=== PATIENT | female | born 1955 | race Caucasian/White ===

== ENCOUNTER → 2016-08-27 | Outpatient (CLI) | payer MEDICARE ==
[~2016-08-27] MED LIST: ASPI81TA83 OR; DIOV80TA OR; METOPROLOL PO
[2016-08-27 10:17] LABS: BASO % 0.5 % (0.0-1.0); EOS # 0.2 K/mm3 (0.0-0.50); EOS % 2.2 % (0.0-3.0); LARGE UNSTAINED CELL # 0.2 K/mm3 (0.0-0.4); LARGE UNSTAINED CELL % 1.4 % (0.0-4.0); LYMPH # 2.3 K/mm3 (1.5-4.5); LYMPH % 20.9 % (24.0-44.0); MEAN CORPUSCULAR HEMOGLOBIN 31.4 pg (27.0-33.0); MEAN CORPUSCULAR HGB CONC 34.1 g/dl (32.0-36.5); MEAN CORPUSCULAR VOLUME 92.1 fl (80.0-96.0); MONO # 0.5 K/mm3 (0.0-0.8); MONO % 4.2 % (0.0-5.0); NEUTROPHILS # 7.8 K/mm3 (1.8-7.7); NEUTROPHILS % 70.8 % (36.0-66.0); PLATELET COUNT, AUTOMATED 247 k/mm3 (150-450); RED CELL DISTRIBUTION WIDTH 12.7 % (11.5-14.5)
[2016-08-27 10:35] LABS: ALBUMIN 3.5 GM/DL (3.2-5.2); ALBUMIN/GLOBULIN RATIO 1.06 (1.00-1.93); BILIRUBIN,TOTAL 0.2 MG/DL (0.2-1.0); CALCIUM LEVEL 9.2 MG/DL (8.8-10.2); CREATININE FOR GFR 1.02 MG/DL (0.55-1.02); GLOMERULAR FILTRATION RATE 58.5 (>45); TOTAL PROTEIN 6.8 GM/DL (6.4-8.2)
== END ==
LOC: M LAB 09:51
PROVIDERS: ATTEND Physician Assistant Medical
DX: R10.13 Epigastric pain (principal)

== ENCOUNTER → 2016-09-02 | Outpatient (CLI) | payer MEDICARE ==
[~2016-09-02] MED LIST changes: +GLIM4TAB PO; +JANU50TA4 PO; +LISI10TA2 PO; +PROT1TAB2 PO; +TOUJ1.2I SC
--- NOTE | 2016-09-02 12:36 | REP ---
ABDOMINAL, FLAT AND UPRIGHT PA CHEST, THREE VIEW: HISTORY: Epigastric pain. A small amount of air is present in small and large intestine. There are no air fluid levels or dilated loops of intestine. There is no pneumoperitoneum. The lungs are clear. IMPRESSION: Nonspecific bowel gas pattern. Signed by Akbar Hammer MD 09/02/2016 12:38 P
[2016-09-03 17:40] VITALS: BP 115/82
== END ==
LOC: M RAD 11:33
PROVIDERS: ATTEND Physician Assistant Medical
DX: R10.13 Epigastric pain (principal); R11.2 Nausea with vomiting, unspecified

== ENCOUNTER → 2016-09-03 | Outpatient (CLI) | payer MEDICARE ==
[~2016-09-03] MED LIST changes: +LIDOCAINE 2% INJ 100 MG/5 ML SDV (FOR ANES.) As Ordered ONE; +NS 1,000 ML IV SCH; +PROPOFOL 200 MG/20 ML VIAL As Ordered ONE; +fentaNYL 100 MCG/2 ML INJECTION (J3010) As Ordered ONE
--- NOTE | 2016-09-03 16:37 | ROOR ---
Patient Name: Hailey Bowman Procedure Date: 09/03/2016 4:14 PM Date of : 1955 Age: 61 Room: [facility] Gender: Female Note Status: Finalized Procedure: Upper GI endoscopy Indications: Therapeutic procedure, Dysphagia Providers: Mejia MICHELLE MD Referring MD: ESTHER BRADLEY Requesting Provider: Medicines: Monitored Anesthesia Care Complications: No immediate complications. Procedure: Pre-Anesthesia Assessment: - The heart rate, respiratory rate, oxygen saturations, blood pressure, adequacy of pulmonary ventilation, and response to care were monitored throughout the procedure. The Endoscope was introduced through the mouth, and advanced to the second part of duodenum. The upper GI endoscopy was accomplished without difficulty. Findings: The examined esophagus was normal. No endoscopic abnormality was evident in the esophagus to explain the patient's complaint of dysphagia. It was decided, however, to proceed with dilation of the entire esophagus. The scope was withdrawn. Dilation was performed with a Page dilator with mild resistance at 58 Fr. The entire examined stomach was normal. The examined duodenum was normal. Impression: - Normal esophagus. - No endoscopic esophageal abnormality to explain patient's dysphagia. Esophagus dilated. Dilated with 54 and 58 Page dilators. - Normal stomach. - Normal examined duodenum. - No specimens collected. Recommendation: - Observe patient's clinical course. - I anticipate no further need for intervention. Mejia Michelle MD Mejia MICHELLE MD 09/03/2016 4:36:37 PM This report has been signed electronically. Number of Addenda: 0 Note Initiated On: 09/03/2016 4:14 PM Estimated Blood Loss: Estimated blood loss: none.
[2016-09-03 16:55] VITALS: BP 134/72
== END ==
LOC: EDSTATUS 08:48 → M OPP 13:46
PROVIDERS: ATTEND Internal Medicine Gastroenterology
DX: R13.10 Dysphagia, unspecified (principal); I10 Essential (primary) hypertension; I51.9 Heart disease, unspecified; J44.9 Chronic obstructive pulmonary disease, unspecified; K21.9 Gastro-esophageal reflux disease without esophagitis; E11.9 Type 2 diabetes mellitus without complications; R10.13 Epigastric pain; G47.30 Sleep apnea, unspecified; Z72.0 Tobacco use; Z79.82 Long term (current) use of aspirin; Z79.84 Long term (current) use of oral hypoglycemic drugs; Z79.4 Long term (current) use of insulin; Z79.899 Other long term (current) drug therapy; Z88.8 Allergy status to other drugs, medicaments and biological substances
CPT/HCPCS: 43235; 43450; 99156; 99157; J3010

== ENCOUNTER → 2016-11-13 | Outpatient (CLI) | payer MEDICARE ==
[~2016-11-13] MED LIST changes: -LIDOCAINE 2% INJ 100 MG/5 ML SDV (FOR ANES.) As Ordered ONE; -NS 1,000 ML IV SCH; -PROPOFOL 200 MG/20 ML VIAL As Ordered ONE; -fentaNYL 100 MCG/2 ML INJECTION (J3010) As Ordered ONE
--- NOTE | 2016-11-16 20:38 | SLEEPCENT ---
DATE OF PROCEDURE: 11/13/2016 REFERRING PHYSICIAN: Sharlene Watkins Nocturnal polysomnography was performed due to concern for the obstructive sleep apnea syndrome in this patient with a history of excessive somnolence and nonrestorative sleep. 8 hours and 16 minutes of data were reviewed. There were 417 minutes of sleep identified. Sleep latency was normal at 7 minutes. Rapid eye movement (REM) latency was short at 57 minutes. Sleep architecture showed some fragmentation in brief periods of wake. There were three REM periods appreciated. Overall sleep efficiency was 84.9%. The patient's EKG showed atrial fibrillation with a controlled ventricular response, rate of 60 beats per minute. EEG showed reasonably normal waveforms for awake and sleep. There were 66 respiratory events identified of 10 seconds in duration or greater for an apnea/hypopnea index of 9.5. The events were obstructive, not exclusive to sleep stage nor body posture. Some snoring was also noted and respiratory related arousals occurred 6.2 times per hour. There was significant activity in the limb leads as well with five trains of 30 events. The limb movement arousal index was mildly elevated at 8.5. IMPRESSION: Obstructive sleep apnea syndrome (G47.33). Apnea-hypopnea index 9.5. Mild periodic limb movement disorder. (G47.61). Limb movement arousal index 8.5. RECOMMENDATION: The patient should be encouraged to return to the sleep disorder center for pressure therapy. In the interim, alcohol and sedative avoidance should be practiced and caution exercised during the operation of motor vehicles. Pending response to CPAP if the patient continues to experience sleep symptoms, interventions to reduce the frequency of arousals from limb activity may also helpful.
== END ==
LOC: M SLEEP 19:30
PROVIDERS: ATTEND Nurse Practitioner Adult Health
DX: G47.33 Obstructive sleep apnea (adult) (pediatric) (principal); G47.61 Periodic limb movement disorder

== ENCOUNTER → 2016-12-11 | Outpatient (CLI) | payer MEDICARE | LOC: M SLEEP 19:45 | PROVIDERS: ATTEND Nurse Practitioner Adult Health | DX: G47.33 Obstructive sleep apnea (adult) (pediatric) (principal) ==

== ENCOUNTER → 2017-04-05 | Outpatient (REF) | payer MEDICARE | LOC: M SMT 13:47 | PROVIDERS: ATTEND Nurse Practitioner Women's Health | DX: N39.0 Urinary tract infection, site not specified (principal); Z87.440 Personal history of urinary (tract) infections; F17.200 Nicotine dependence, unspecified, uncomplicated | CPT/HCPCS: 81001; 87086; G0463 ==

== ENCOUNTER → 2017-08-17 | Outpatient (CLI) | payer MEDICARE ==
[2017-08-17 09:45] LABS: ANION GAP 4 MEQ/L (8-16); BLOOD UREA NITROGEN 12 MG/DL (7-18); CALCIUM LEVEL 8.9 MG/DL (8.8-10.2); CARBON DIOXIDE LEVEL 32 MEQ/L (21-32); CHLORIDE LEVEL 104 MEQ/L (98-107); CREATININE FOR GFR 1.05 MG/DL (0.55-1.30); GLOMERULAR FILTRATION RATE 56.3 (>45); GLUCOSE, FASTING 261 MG/DL (70-100); SODIUM LEVEL 140 MEQ/L (136-145)
== END ==
LOC: M LAB 08:54
DX: G56.03 Carpal tunnel syndrome, bilateral upper limbs (principal)
CPT/HCPCS: 80048

== ENCOUNTER → 2017-09-29 | Outpatient (CLI) | payer MEDICARE ==
[2017-09-29 13:15] LABS: ANION GAP 8 MEQ/L (8-16); BLOOD UREA NITROGEN 16 MG/DL (7-18); CALCIUM LEVEL 9.6 MG/DL (8.8-10.2); CARBON DIOXIDE LEVEL 29 MEQ/L (21-32); CHLORIDE LEVEL 103 MEQ/L (98-107); CREATININE FOR GFR 1.01 MG/DL (0.55-1.30); GLOMERULAR FILTRATION RATE 58.9 (>45); GLUCOSE, FASTING 190 MG/DL (70-100); POTASSIUM SERUM 4.1 MEQ/L (3.5-5.1); SODIUM LEVEL 140 MEQ/L (136-145)
== END ==
LOC: M LAB 12:11
DX: G56.01 Carpal tunnel syndrome, right upper limb (principal); Z01.812 Encounter for preprocedural laboratory examination
CPT/HCPCS: 80048

== ENCOUNTER → 2018-03-02 | Outpatient (CLI) | payer MEDICARE | LOC: M RAD 08:09 | DX: E11.51 Type 2 diabetes mellitus with diabetic peripheral angiopathy without gangrene (principal) | CPT/HCPCS: 93925 ==

== ENCOUNTER → 2018-03-30 | Outpatient (CLI) | payer MEDICARE ==
[~2018-03-30] MED LIST changes: -ASPI81TA83 OR; -DIOV80TA OR; -GLIM4TAB PO; +HEPARIN 1,000 UNITS/ML 10ML VIAL (FOR RADIOLOGY& DIALYSIS ONLY) As Ordered; +ISOVUE-300 61% 50ML VIAL (Q9967) As Ordered; -JANU50TA4 PO; +LIDOCAINE 2% MDV 20 ML VIAL As Ordered; -LISI10TA2 PO; -METOPROLOL PO; +MIDAZOLAM INJ 2 MG/2 ML VIAL (J2250) As Ordered; +ONDANSETRON 4MG/2ML VIAL (J2405) As Ordered; -PROT1TAB2 PO; -TOUJ1.2I SC; +fentaNYL 100 MCG/2 ML INJECTION (J3010) As Ordered
== END | disposition home or self-care (01) ==
LOC: M IRPRO 06:29
DX: I70.212 Atherosclerosis of native arteries of extremities with intermittent claudication, left leg (principal); G47.33 Obstructive sleep apnea (adult) (pediatric); J44.9 Chronic obstructive pulmonary disease, unspecified; I25.10 Atherosclerotic heart disease of native coronary artery without angina pectoris; I10 Essential (primary) hypertension; K21.9 Gastro-esophageal reflux disease without esophagitis; E11.9 Type 2 diabetes mellitus without complications; Z79.4 Long term (current) use of insulin; I48.91 Unspecified atrial fibrillation; F17.210 Nicotine dependence, cigarettes, uncomplicated
CPT/HCPCS: 37225

== ENCOUNTER → 2018-05-18 | Outpatient (CLI) | payer MEDICARE ==
[~2018-05-18] MED LIST changes: +PROTAMINE SULF INJ 50 MG/5 ML VIAL (J2720) As Ordered
[2018-05-18 10:22] LABS: ANION GAP 7 MEQ/L (8-16); BLOOD UREA NITROGEN 15 MG/DL (7-18); CALCIUM LEVEL 8.4 MG/DL (8.8-10.2); CARBON DIOXIDE LEVEL 29 MEQ/L (21-32); CHLORIDE LEVEL 104 MEQ/L (98-107); CREATININE FOR GFR 1.03 MG/DL (0.55-1.30); GLOMERULAR FILTRATION RATE 57.6 (>45); GLUCOSE, FASTING 148 MG/DL (70-100); POTASSIUM SERUM 3.4 MEQ/L (3.5-5.1); SODIUM LEVEL 140 MEQ/L (136-145)
== END | disposition home or self-care (01) ==
LOC: M IRPRO 07:35
DX: I70.211 Atherosclerosis of native arteries of extremities with intermittent claudication, right leg (principal)
CPT/HCPCS: 37225

== ENCOUNTER → 2018-06-16 | Outpatient (CLI) | payer MEDICARE | LOC: M RAD 06:00 | DX: I73.9 Peripheral vascular disease, unspecified (principal) | CPT/HCPCS: 93926 ==

== ENCOUNTER → 2018-09-01 | Outpatient (CLI) | payer MEDICARE ==
[~2018-09-01] MED LIST changes: +ASPI81TA83 OR; +DIOV80TA OR; +GLIM4TAB PO; -HEPARIN 1,000 UNITS/ML 10ML VIAL (FOR RADIOLOGY& DIALYSIS ONLY) As Ordered; -ISOVUE-300 61% 50ML VIAL (Q9967) As Ordered; +JANU50TA4 PO; -LIDOCAINE 2% MDV 20 ML VIAL As Ordered; +LISI10TA2 PO; +METOPROLOL PO; -MIDAZOLAM INJ 2 MG/2 ML VIAL (J2250) As Ordered; -ONDANSETRON 4MG/2ML VIAL (J2405) As Ordered; +PROT1TAB2 PO; -PROTAMINE SULF INJ 50 MG/5 ML VIAL (J2720) As Ordered; +TOUJ1.2I SC; -fentaNYL 100 MCG/2 ML INJECTION (J3010) As Ordered
--- NOTE | 2018-09-01 11:34 | REP ---
PELVIC ULTRASOUND: Real-time sonographic evaluation of pelvis performed utilizing transabdominal technique. Bladder measures 3.8 x 2.9 x 5.6 cm. Patient has had prior hysterectomy and bilateral salpingo-oophorectomy in 1996. No definite mass or fluid collection is seen in the pelvis. Patient declined transvaginal ultrasound. IMPRESSION: Grossly negative transabdominal pelvic ultrasound. Patient declined endovaginal ultrasound. Electronically Signed by Harman Saeed MD 09/01/2018 03:59 P
== END ==
LOC: M RAD 08:16
PROVIDERS: ATTEND Surgery
DX: R10.2 Pelvic and perineal pain (principal)

== ENCOUNTER → 2018-10-03 | Outpatient (CLI) | payer MEDICARE ==
--- NOTE | 2018-10-03 10:00 | REP ---
Bilateral lower extremity arterial Doppler ultrasound: History: Intermittent claudication. History of right superficial femoral artery balloon angioplasty. Comparison angiographic images are from May 18, 2018. Comparison right lower extremity ultrasound is from June 16, 2018. Sonographic findings: Ankle brachial indices are measured at 0.59 on the right and 0.62 on the left. Most recent ankle brachial index on the right was measured 1.3. Monophasic flow waveforms are noted in the lower extremity arteries bilaterally at and distal to the proximal superficial femoral artery level. 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 There is evidence of a significant left superficial femoral artery stenosis at mid level with high velocity arterial flow seen. Right lower extremity arterial Doppler velocity chart: Right CF A 205 cm/S Profunda 153 Proximal SFA 145 Mid SFA 104 Distal SFA 69 Popliteal 60 Proximal AT A 32 Tibioperoneal trunk 62 Proximal JEWEL BEARING GRINDER 44 Distal JEWEL BEARING GRINDER 28 Distal AT A 38 Left lower extremity arterial Doppler velocity chart: CF A 165 cm/S Profunda 195 Proximal SFA 116 Mid SFA 428 Distal SFA 83 Popliteal 39 Proximal AT A 18 Tibioperoneal trunk 45 Proximal JEWEL BEARING GRINDER 74 Distal JEWEL BEARING GRINDER 38 Distal AT A 37 Electronically Signed by Denys Lopez MD 10/03/2018 09:52 A
== END ==
LOC: M RAD 06:51
PROVIDERS: ATTEND Surgery Vascular Surgery
DX: I70.213 Atherosclerosis of native arteries of extremities with intermittent claudication, bilateral legs (principal)

== ENCOUNTER → 2018-10-04 | Outpatient (CLI) | payer MEDICARE ==
[2018-10-04 17:35] LABS: BASO # 0.1 10^3/uL (0.0-0.2); BASO % 0.7 % (0.0-1.0); EOS # 0.2 10^3/uL (0.0-0.50); EOS % 1.7 % (0.0-3.0); HEMATOCRIT 43.7 % (36.0-47.0); HEMOGLOBIN 14.5 g/dl (12.0-15.5); LYMPH # 2.7 10^3/uL (1.5-4.5); LYMPH % 23.9 % (24.0-44.0); MEAN CORPUSCULAR HEMOGLOBIN 30.9 pg (27.0-33.0); MEAN CORPUSCULAR HGB CONC 33.2 g/dl (32.0-36.5); MEAN CORPUSCULAR VOLUME 93.2 fl (80.0-96.0); MONO # 0.8 10^3/uL (0.0-0.8); NEUTROPHILS # 7.6 10^3/uL (1.8-7.7); NEUTROPHILS % 66.2 % (36.0-66.0); PLATELET COUNT, AUTOMATED 226 10^3/uL (150-450); RED BLOOD COUNT 4.69 10^6/uL (4.00-5.40); WHITE BLOOD COUNT 11.5 10^3/uL (4.0-10.0)
[2018-10-04 17:45] LABS: CALCIUM LEVEL 9.4 MG/DL (8.8-10.2); CREATININE FOR GFR 1.34 MG/DL (0.55-1.30); GLOMERULAR FILTRATION RATE 42.4 (>45); POTASSIUM SERUM 3.7 MEQ/L (3.5-5.1)
== END ==
LOC: M LAB 15:34
PROVIDERS: ATTEND Surgery Vascular Surgery
DX: R19.00 Intra-abdominal and pelvic swelling, mass and lump, unspecified site (principal)

== ENCOUNTER → 2018-10-09 | Outpatient (CLI) | payer MEDICARE ==
[~2018-10-09] MED LIST changes: +ASPI81TA85 PO; +ATOR80TA59 PO; +CARV12.5 PO; +ELIQ5TAB PO; +FLEC25TA PO; +FURO40TA2 PO; +HEPARIN 1,000 UNITS/ML 10ML VIAL (FOR RADIOLOGY& DIALYSIS ONLY) As Ordered ONE; +ISOVUE-300 61% 50ML VIAL (Q9967) As Ordered ONE; +LIDOCAINE 2% MDV 20 ML VIAL As Ordered ONE; +LISI10TA4 PO; +MIDAZOLAM INJ 2 MG/2 ML VIAL (J2250) As Ordered ONE; +PEPC40TA12 PO; +PROTAMINE SULF INJ 50 MG/5 ML VIAL (J2720) As Ordered ONE; +TRAD5TAB PO; +diphenhydrAMINE INJ 50MG/ML VIAL (J1200) As Ordered ONE; +fentaNYL 100 MCG/2 ML INJECTION (J3010) As Ordered ONE
--- NOTE | 2018-10-18 12:29 | REPIR ---
DATE OF PROCEDURE: 10/09/2018 ATTENDING SURGEON: Dr. Rosa Stein ASSISTANTS: Selina Staples and Laura Alicia. 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 PROCEDURE: Aortogram, iliofemoral angiogram, selective left common femoral artery catheter placement, left superficial femoral artery angioplasty and stent with a 7 x 120 Fany stent postdilated with an 8 x 200 balloon, left popliteal artery angioplasty and stent with a 7 x 120 Fany stent postdilated with an 8 x 200 balloon, left common femoral artery angioplasty with 8 x 200 balloon, Mynx closure of the right common femoral arteriotomy. INDICATION: The patient is a 63-year-old female with bilateral lower extremity claudication who will undergo a left lower extremity angiogram. Risks, benefits, alternative treatment options were discussed with the patient. ANESTHESIA: Local sedation with 1 mg of Versed, 50 mcg of fentanyl and 20 mL of 2% lidocaine. FLUOROSCOPIC TIME: 5.8 minutes. CONTRAST: 12.5 mL. SEDATION TIME: From 8:19 a.m. to 8:53 a.m. for a total of 42 minutes. HEPARIN: 7000 units. PROTAMINE: 50 mg. BENADRYL: 50 mg. COMPLICATIONS: None. DRAINS: None. SPECIMENS: None. DESCRIPTION OF PROCEDURE: The patient was taken to the angiography suite, placed supine on the angiography room table and then prepped and draped in a standard surgical fashion. The right common femoral artery was cannulated with a micropuncture needle, catheter placed in the aorta and aortogram was performed. Catheter pulled down bifurcation level of the iliac arteries and iliofemoral angiogram was performed. Catheter was directed over the bifurcation, placed in the left common femoral artery and angiogram was performed showing diffuse disease in the superficial femoral, popliteal and common femoral arteries. The superficial femoral and popliteal arteries underwent angioplasty and stenting with two 7 x 120 Fany drug-eluting stents and one 7 x 120 bare metal stent and then postdilated with an 8 x 200 balloon. The left common femoral artery was angioplastied with an 8 x 200 balloon. A completion angiogram showed resolution of the stenosis with good flow through the common femoral, superficial femoral and popliteal arteries. Catheters and wires were removed. A Mynx closure was used close the arteriotomy in the right common femoral artery with an additional 10 minutes of adjunctive pressure applied for hemostasis. Dressings were then applied. The patient tolerated the procedure well. All instrument, sponge, and needle counts were correct at the end the case. There were no complications. Dr. Stein was present for and directed the entire case. The patient was transferred to the holding area and subsequently discharged in stable condition.
== END | disposition home or self-care (01) ==
LOC: M IRPRO 06:41
PROVIDERS: ATTEND Surgery Vascular Surgery
DX: I70.213 Atherosclerosis of native arteries of extremities with intermittent claudication, bilateral legs (principal); Z72.0 Tobacco use
CPT/HCPCS: 37226; 75625; 75716; C1725; C1760; C1769; C1874; C1876; C1887; C1894; J1200; J2250; J2720; J3010; Q9967

== ENCOUNTER 2018-11-06 10:16 | Day surgery (SDC) | payer MEDICARE ==
[2018-11-06] VITALS (7 sets, daily range): BP systolic 111–159; BP diastolic 67–82
[~2018-11-06] VITALS: Ht 165.1 cm; Wt 93.5 kg
[~2018-11-06 10:16] MED LIST changes: -CARV12.5 PO; -FLEC25TA PO; -FURO40TA2 PO; -HEPARIN 1,000 UNITS/ML 10ML VIAL (FOR RADIOLOGY& DIALYSIS ONLY) As Ordered ONE; -ISOVUE-300 61% 50ML VIAL (Q9967) As Ordered ONE; -LIDOCAINE 2% MDV 20 ML VIAL As Ordered ONE; -LISI10TA4 PO; +LR 1,000 ML IV ONE; -MIDAZOLAM INJ 2 MG/2 ML VIAL (J2250) As Ordered ONE; -PEPC40TA12 PO; -PROTAMINE SULF INJ 50 MG/5 ML VIAL (J2720) As Ordered ONE; -diphenhydrAMINE INJ 50MG/ML VIAL (J1200) As Ordered ONE; -fentaNYL 100 MCG/2 ML INJECTION (J3010) As Ordered ONE
[2018-11-06] MEDS ORDERED: PEPC40TA12 PO (11:28)
[2018-11-06] MEDS ORDERED: HumaLOG INSULIN (NovoLOG) PER UNIT As Ordered ONE (11:40)
[2018-11-06] MEDS ORDERED: HumaLOG INSULIN (NovoLOG) PER UNIT SC ONE (11:45)
[2018-11-06] MEDS ORDERED: LIDOCAINE 1% SDV INJ 30 ML VIAL As Ordered ONE (11:56)
[2018-11-06] MEDS ORDERED: ISOVUE-300 61% 50ML VIAL (Q9967) As Ordered ONE (11:56)
[2018-11-06] MEDS ORDERED: BACITRACIN PWD 50,000 UNITS VIAL As Ordered ONE (11:57)
[2018-11-06] MEDS ORDERED: AMIODARONE 150MG/3ML INJ (J0282) As Ordered ONE ×2 (11:57→13:30)
[2018-11-06] MEDS ORDERED: PROPOFOL 200 MG/20 ML VIAL As Ordered ONE ×3 (12:06→13:27)
[2018-11-06] MEDS ORDERED: MIDAZOLAM INJ 2 MG/2 ML VIAL (J2250) As Ordered ONE (12:08)
[2018-11-06] MEDS ORDERED: fentaNYL 100 MCG/2 ML INJECTION (J3010) As Ordered ONE (12:08)
[2018-11-06] MEDS ORDERED: METOCLOPRAMIDE INJ 10MG/2ML VIAL (J2765) IV PRN (14:30)
[2018-11-06] MEDS ORDERED: LR 1,000 ML IV SCH (14:30)
[2018-11-06] MEDS ORDERED: fentaNYL 100 MCG/2 ML INJECTION (J3010) IV PRN (14:30)
[2018-11-06] MEDS ORDERED: KETOROLAC TROMETHAMINE 10 MG TAB PO PRN (14:30)
[2018-11-06] MEDS ORDERED: ACETAMINOPHEN TAB 650MG DOSE (2X325MG) PO PRN (14:30)
[2018-11-06] MEDS ORDERED: ONDANSETRON 4MG/2ML VIAL (J2405) IV PRN (14:30)
[2018-11-06] MEDS ORDERED: PERCOCET 5MG/325MG TAB PO PRN (14:30)
[2018-11-06] MEDS ORDERED: GLUCOSE 4 GM CHEW TABLET PO PRN (14:45)
[2018-11-06] MEDS ORDERED: CARVedilol 12.5 MG TAB PO ONE (14:45)
[2018-11-06] MEDS ORDERED: GLUCAGON FOR INJ 1 MG VIAL (J1610) SC PRN (14:45)
[2018-11-06] MEDS ORDERED: LISINOPRIL 10 MG TAB PO ONE (14:45)
[2018-11-06] MEDS ORDERED: DEXTROSE 50% 50 ML SYRINGE IV PRN (14:45)
--- NOTE | 2018-11-06 14:47 | REP ---
Chest one-view HISTORY: Pacemaker insertion Comparison: 09/02/2016 Linear densities are present in the left upper and lower lobe consistent with atelectasis or scar. The right lung is clear. The heart is normal in size. The pulmonary vasculature is normal in appearance. The patient is status post pacemaker insertion. Impression: Left upper and lower lobe atelectasis or scar. Electronically Signed by Akbar Hammer MD 11/06/2018 02:39 P
[2018-11-06] MEDS ORDERED: SLF 3 ML SYR IV PRN (16:30)
[2018-11-06] MEDS: HumaLOG INSULIN (NovoLOG) PER UNIT SC SCH (17:55)
[2018-11-06] MEDS: GLIMEPIRIDE 2 MG TAB PO SCH (18:17)
[2018-11-06] MEDS: FLECAINIDE 50MG TABLET PO SCH (18:17)
[2018-11-06] MEDS: ceFAZolin SOD 1 GM in D5W MINI-BAG PLUS 50 ML IV SCH (20:25)
[2018-11-06] MEDS ORDERED: ATORVASTATIN 20 MG TAB PO SCH (21:00)
[2018-11-06] MEDS ORDERED: HumaLOG INSULIN (NovoLOG) PER UNIT SC SCH (21:00)
[2018-11-06] MEDS: LISINOPRIL 10 MG TAB PO SCH (21:10)
[2018-11-06] MEDS: CARVedilol 12.5 MG TAB PO SCH (21:10)
[2018-11-06] MEDS: SLF 3 ML SYR IV SCH (21:14)
--- NOTE | 2018-11-07 00:37 | ECGEPIP ---
Stationary ECG Study [facility] Test Date: 2018-11-06 Pat Name: MICKI BURGER Department: Room: - Gender: F Corporate Real Estate Manager: : 1955 Requested By: Ba Briseno Order Number: [id number] Reading MD: Mejia Paez Measurements Intervals [place] Rate: 82 P: 262 [place]: 214 QRS: 108 QRSD: 177 T: -75 QT: 437 QTc: 512 Interpretive Statements ELECTRONIC ATRIAL PACEMAKER ELECTRONIC VENTRICULAR PACEMAKER Comparison tracing not on file Electronically Signed On 11-07-2018 0:36:46 EDT by Mejia Paez
[2018-11-07] MEDS: ceFAZolin SOD 1 GM in D5W MINI-BAG PLUS 50 ML IV SCH (04:15)
[2018-11-07 04:30] VITALS: BP 133/96
[2018-11-07] MEDS: SLF 3 ML SYR IV SCH (06:12)
--- NOTE | 2018-11-07 07:02 | RO ---
DATE OF PROCEDURE: 11/06/2018 PROCEDURE: 1. Implantation of permanent dual-chamber pacemaker. 2. Direct current cardioversion. IMPLANTING PATTERN ILLUSTRATOR: Dr. Ba Briseno ANESTHESIOLOGIST: Dr. Uriah Delcid PREOPERATIVE DIAGNOSES: 1. Intermittent high-grade AV block. 2. Persistent atrial fibrillation. 3. Heart failure (diastolic dysfunction). 4. Hypertensive heart disease (benign with heart failure). POSTOPERATIVE DIAGNOSES: 1. High-grade AV block - post dual-chamber pacemaker implant. 2. Successful conversion of atrial fibrillation to sinus mechanism. 3. Heart failure (diastolic dysfunction/chronic). 4. Hypertensive heart disease (benign with heart failure). TYPE OF ANESTHESIA: Monitored local anesthesia. CLINICAL SUMMARY: This 63-year-old single mother of two, retired resident of [place], [place] has been followed by Dr. Trinidad, [facility] in [place] for multiple medical problems including hypertensive heart disease with abnormal EKG (intermittent left bundle branch block) and paroxysmal atrial fibrillation recently persistent, chronic obstructive pulmonary disease, obstructive sleep apnea and peripheral arterial disease status post multiple percutaneous transluminal angioplasties, and gastroesophageal reflux disease post multiple esophageal dilatations. Customarily she is limited by dyspnea and claudication, unable to walk farther than approximately 100 feet prior to stopping. Has been free of any effort related chest pains, had been smoking up to one pack per day only to have stopped very recently. Longstanding awareness of her heart action with documented paroxysmal atrial fibrillation the past several years with prior loop recorder implant. Has had a problem with momentary unsteadiness but has not fallen or lost consciousness. Off negative chronotropic therapy, underwent Holter monitor with Dr. Trinidad October 02, 2018 which showed underlying atrial fibrillation with a ventricular response that varied between 32 and 92 bpm with 3-5 second pauses, and multiple PVCs. She was referred to our practice for possible pacemaker implantation. We discussed with the patient arranging for permanent dual-chamber pacemaker implantation to allow safe administration of antiarrhythmic therapy to preserve her sinus mechanism, especially in light of her heart failure. Obese, barrel-chested, late middle-aged lady lying comfortably with the head of bed elevated 30 degrees. Heart rate 68 beats per minute and irregular, blood pressure 122/76 supine, O2 saturation 96% on room air. Body mass index (BMI) 34. Edentulous with dentures. Trachea midline. Neck veins were difficult to assess because of her body habitus, but did not appear to be increased. Increased anteroposterior chest diameter with reduced chest excursion. Fair air entry with no inspiratory rales. Slight prolongation of expiration but no current audible wheeze. Apical impulse not palpable. Heart sounds very distant. Question of accentuated pulmonary closure sound, audible over the right base. Soft variable systolic ejection murmur over left base, variable because of her atrial fibrillation. Carotid upstroke was normal. Pulse volume was variable because of atrial fibrillation. Markedly reduced peripheral pulses with barely palpable left dorsalis pedis, but absent right pedal pulses. No current dependent edema. LABORATORY DATA: EKG October 27 showed underlying atrial fibrillation with ventricular response averaging 66 bpm, low limb voltages and slow precordial R-wave progression. Left bundle branch block pattern, increased QRS duration from previous available EKG. Portable upright chest x-ray October 11, 2018 showed heart size is not enlarged, but hyperinflated lung muñiz. Normal appearing aorta. No pulmonary venous congestion. No infiltrate. Hemoglobin 14.5, white blood cell count was 11.5. Normal platelet count. Electrolytes were normal. BUN 17, creatinine 1.3, random glucose 196. DESCRIPTION OF PROCEDURE: In the fasting state following informed consent and preoperative Ancef 2 grams IV, the patient was taken to the operating theater. Numerous skin electrodes were applied to facilitate continuous electrocardiographic monitoring. Self-adhesive cardioverting/defibrillating pads were applied in an anteroposterior configuration and connected to a bedside cardioverter defibrillator. The left subclavian region was prepped and draped in the usual fashion. The skin was infiltrated with 1% Xylocaine and the left axillary vein was catheterized using the micropuncture technique. A 5 cm linear incision was made several centimeters below and parallel to the left clavicle. Dissection was carried down to the level of the pectoralis fascia and a pocket was fashioned below the level of the incision line. Two bipolar screw-in active fixation steroid eluting pacing leads were then positioned to the right ventricle outflow tract and high right atrial appendage under fluoroscopic control. The right ventricular lead ([employer] model number [id number], serial number [id number]) measurements were: Stimulation threshold 0.6 V/0.4 ms/impedance 877 ohms. The capital R wave amplitude measured 8.1 mV. Once the ventricular lead was in position, the patient was given amiodarone 150 mg IV infusion over 10 minutes and repeated half an hour later. The patient was then given additional IV sedation by anesthesia and once her awareness was blunted a single biphasic direct current cardioversion was performed. In light of her body habitus, a 200 joule shock was administered. This was successful in restoring her sinus mechanism, but she had frequent PACs so we elected to overdrive pacer temporarily at 90 beats per minute in the operating room with good effect. The atrial lead ([employer] model number [id number], serial number [id number]) measurements were: Stimulation threshold 1.0 V/0.4 ms/impedance 427 ohms. The capital P wave amplitude measured 2.6 mV. These pacing leads were then secured in position with sleeves sutured at their insertion site. They were then connected to a dual chamber pulse generator ([employer], model number [id number], serial number [id number]) MRI compatible. Consistent AV sequentially paced rhythm was documented. The generator was then placed in the pocket and secured in position with a suture through the right upper hand corner of the epoxy header. The subcutaneous tissues were approximated using a running chromic suture and the skin was closed using robyn. A dry dressing was applied and the patient was returned to recovery room in good condition. Estimated blood loss 10 mL. No apparent complications. Especially with our wish to start her on antiarrhythmic therapy (flecainide 50 mg b.i.d. in light of her history of hypertensive heart disease - diastolic dysfunction) we admitted her to a telemetry unit for observation at least overnight. Her postoperative portable upright chest x-ray showed good lead position with no pneumothorax. Her EKG confirmed consistent AV sequentially paced rhythm. Paced QRS complexes had a normal axis with left bundle branch block configuration in keeping with RV outflow tract stimulation. MTDD
[2018-11-07 08:00] VITALS: BP 124/80
[2018-11-07] MEDS: GLIMEPIRIDE 2 MG TAB PO SCH (08:09)
[2018-11-07] MEDS: HumaLOG INSULIN (NovoLOG) PER UNIT SC SCH (08:09)
[2018-11-07] MEDS ORDERED: ESCITALOPRAM OXALATE 10 MG TAB (LEXAPRO) PO SCH (09:00)
[2018-11-07] MEDS ORDERED: PANTOPRAZOLE 40MG TAB (PROTONIX) PO SCH (09:00)
--- NOTE | 2018-11-07 09:15 | REP ---
Chest x-ray: Two views. History: Status post pacemaker implant. Comparison chest x-ray: November 06, 2018. Findings: A dual lead pacemaker is again seen in the right heart via the left side. There are skin robyn adjacent to the power plant. There is no evidence of pneumothorax or hydrothorax. Mild discoid atelectasis is seen in the bases. No pleural effusion is seen. Pulmonary vasculature is not increased. Impression: Pacemaker in place. Mild bibasilar plate-like atelectasis. No complication seen. Electronically Signed by Denys Lopez MD 11/07/2018 08:25 P
[2018-11-07] MEDS ORDERED: CARV12.5 PO ×2 (09:23→09:30)
[2018-11-07] MEDS ORDERED: LISI10TA4 PO ×2 (09:23→09:30)
[2018-11-07] MEDS ORDERED: FLEC25TA PO ×2 (09:23→09:30)
--- NOTE | 2018-11-07 10:05 | IPN ---
CARDIOLOGY PROGRESS NOTE DATE: 11/07/2018 SUBJECTIVE: Following her pacemaker implant yesterday she has minor incisional tenderness, but has been up ambulating without problems. In particular denies any other chest discomfort, shortness of breath, palpitations or dizziness. Appears to be tolerating her adjusted antihypertensive/antiarrhythmic therapy without problem. OBJECTIVE: Pleasant obese late middle-aged woman ambulating in her room without problem. Heart rate 90 beats per minute and regular. Blood pressure 124/80. Respiratory rate 18. O2 saturation 96% on room air. Afebrile. Weight 206 pounds. Was able to lie relatively flat without difficulty. No pallor or cyanosis. Normal oral moisture. Neck veins did not appear to be elevated. Slightly increased anteroposterior chest diameter with normal respiratory rate. Slightly reduced chest expansion. Her pacemaker incision appears to be healing well without erythema, swelling or discharge. No current dependent edema. CARDIOVASCULAR DISEASE SPECIALIST: This has been showing fairly consistent atrially paced and ventricular paced rhythm. She has anti fibrillation pacing mode of her pacemaker activated and this appears to be working well. PA and left lateral chest x-ray: Reviewed independently shows borderline cardiomegaly with normal greater vessels. No pulmonary venous congestion. Stable pacing leads with no pneumothorax. No pulmonary venous congestion. Lateral projection shows increased anteroposterior chest diameter with flattened diaphragms consistent with her COPD. EKG: Her tracing today shows appropriate pacer function with AV sequential pacing at 96 bpm. Her paced ventricular complexes have a rightward axis and LBBB configuration in keeping with RV outflow tract stimulation. This appearance is not changed from yesterday. BLOOD WORK: Fingerstick blood sugar shows significantly elevated values despite her dietary measures and sliding scale insulin. I am confident this will improve resuming her customary insulins at home. These preparations were not available to her here. IMPRESSION/PLAN: 1. Paroxysmal atrial fibrillation: On her current combination of carvedilol and low-dose flecainide with pacemaker anti fibrillation mode activated, she has been free of recurrent atrial tachyarrhythmia. We will plan on continuing this same regimen. Her oral anticoagulation will be resumed tomorrow. 2. AV block/dual-chamber pacemaker in situ: Has minimal incisional discomfort but her incision appears to be healing well. Complete pacemaker interrogation was performed today showing excellent intracardiac electrograms and pacing thresholds with ample battery voltage. We did make subtle adjustments to her auto pacing features in order to prolong battery life. She will be given a followup appointment in 1 week for staple removal. We have instructed her to perform only light activities of daily living, avoid getting her incision wet until she has her robyn removed in my office. She has also been encouraged to contact us promptly for any abnormal erythema, swelling or discharge. 3. Heart failure (diastolic dysfunction-chronic): At this point has no symptoms or signs of congestion. Chest x-ray shows no pulmonary venous hypertension, infiltrate or pleural effusion. At this point we have requested that she continue to follow a modest salt and fluid intake restriction. She will be continued on carvedilol and lisinopril. Her Lasix dosing has been changed to 40 mg daily only should she gain more than 2 pounds above her discharge weight. Her hydrochlorothiazide has been discontinued. 4. Hypertensive heart disease (benign with heart failure): Current blood pressure is well-controlled on her present combination carvedilol and lisinopril. Compensated as mentioned above. DISCHARGE RECOMMENDATIONS AND MEDICATIONS: Dietary measures and activity as mentioned above. Has a followup appointment in my office November 13, 2018 at 8:00 a.m. Her medications will now include: - carvedilol 12.5 mg b.i.d. - lisinopril 10 mg b.i.d. - furosemide 40 mg tablets 1 tablet daily for weight gain of 2 pounds or more on her scale (she will be weighing herself postvoiding each morning) - Eliquis 5 mg b.i.d. starting tomorrow - atorvastatin 80 mg daily - Protonix 40 mg daily - Pepcid 40 mg daily - flecainide 50 mg b.i.d. - glimepiride 4 mg tablets p.o. b.i.d. - insulin glargine 65 units subcu daily - linagliptin 5 mg p.o. daily Her aspirin has been discontinued. She has been encouraged contact us should she have any questions or difficulties.
[2018-11-07] MEDS: FLECAINIDE 50MG TABLET PO SCH (10:10)
[2018-11-07] MEDS: CARVedilol 12.5 MG TAB PO SCH (10:10)
[2018-11-07 10:11] VITALS: BP 124/80
[2018-11-07] MEDS: LISINOPRIL 10 MG TAB PO SCH (10:11)
[2018-11-07] MEDS ORDERED: FURO40TA2 PO (12:32)
--- NOTE | 2018-11-07 21:28 | ECGEPIP ---
Stationary ECG Study [facility] Test Date: 2018-11-07 Pat Name: MICKI BURGER Department: Room: [place] [id number] Gender: F Newspaper Delivery Driver: GALO : 1955 Requested By: Ba Briseno Order Number: [id number] Reading MD: Mejia Paez Measurements Intervals [place] Rate: 96 P: 126 [place]: 198 QRS: 110 QRSD: 170 T: -72 QT: 424 QTc: 536 Interpretive Statements ELECTRONIC ATRIAL PACEMAKER ELECTRONIC VENTRICULAR PACEMAKER ABNORMAL RHYTHM ECG Electronically Signed On 11-07-2018 21:28:00 EDT by Mejia Paez
== END 2018-11-07 10:51 | disposition home or self-care (01) ==
LOC: M SDC 10:16 → M PCU 15:28 → M SDC 11-07 10:51
PROVIDERS: ATTEND Internal Medicine Cardiovascular Disease
DX: I44.1 Atrioventricular block, second degree (principal); I48.1 Persistent atrial fibrillation; I50.32 Chronic diastolic (congestive) heart failure; I11.0 Hypertensive heart disease with heart failure; J44.9 Chronic obstructive pulmonary disease, unspecified; E11.9 Type 2 diabetes mellitus without complications; G47.33 Obstructive sleep apnea (adult) (pediatric); K21.9 Gastro-esophageal reflux disease without esophagitis; Z79.4 Long term (current) use of insulin; Z79.899 Other long term (current) drug therapy
CPT/HCPCS: 33208; 71045; 71046; 76000; 92960; 93005; C1785; C1898; J0282; J0690; J2250; J3010

== ENCOUNTER → 2018-11-15 | Outpatient (CLI) | payer MEDICARE ==
[~2018-11-15] MED LIST changes: +CARV12.5 PO; +FLEC25TA PO; +FURO40TA2 PO; +LISI10TA4 PO; -LR 1,000 ML IV ONE; +PEPC40TA12 PO
--- NOTE | 2018-11-15 15:10 | REP ---
BILATERAL LOWER EXTREMITY DUPLEX DOPPLER ARTERIAL ULTRASOUND: Real-time ultrasound evaluation and duplex Doppler interrogation of the bilateral lower extremity arterial systems is performed. MOISES on the right is 0.65 and left 0.55. Severe atherosclerosis and plaquing is seen bilaterally predominantly in the region of the superficial femoral arteries. Triphasic waveforms are seen in the common femoral arteries and profunda arteries bilaterally with mild phasic arteries distal to that bilaterally. There is occlusion of the proximal right superficial femoral artery with reconstitution in the mid aspect. 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 There is occlusion of the left superficial femoral artery proximal to distal where there is an intraluminal stent. There is reconstitution of the distal SFA via collateral vessels. Right Peak Left Peak Systolic Velocity Systolic velocity Common femoral artery 138.0 cm/s 56.8 cm/s Profunda 103.0 cm/s 9.7 cm/s Proximal SFA 36.9/occluded occluded Mid SFA reversal of flow 44.8 occluded Distal SFA 32.1 cm/s reversal of flow 24.8 Popliteal 19.1 cm/s 9.5 cm/s Proximal DARRYL 10.7 cm/s 11.5 cm/s Tibial peroneal trunk 20.2 cm/s 12.0 cm/s Proximal PUBLIC POLICY MANAGER 22.7 cm/s 26.1 cm/s Distal PUBLIC POLICY MANAGER 13.4 cm/s 8.9 cm/s Distal DARRYL 11.4 cm/s 4.2 cm/s IMPRESSION: Severe atherosclerotic plaquing bilaterally. 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 There is reconstitution of the mid SFA via collateral vessels. There is a stent of the entire left superficial femoral artery, which is occluded. There is reconstitution of the distal end of the left SFA via collateral vessels. Electronically Signed by Harman Saeed MD 11/17/2018 11:55 A
== END ==
LOC: M RAD 10:40
PROVIDERS: ATTEND Surgery Vascular Surgery
DX: I70.211 Atherosclerosis of native arteries of extremities with intermittent claudication, right leg (principal); I70.292 Other atherosclerosis of native arteries of extremities, left leg

== ENCOUNTER → 2018-11-27 | Outpatient (CLI) | payer MEDICARE ==
[2018-11-27 07:17] LABS: HEMOGLOBIN 12.4 g/dl (12.0-15.5); MEAN CORPUSCULAR HEMOGLOBIN 32.5 pg (27.0-33.0); MEAN CORPUSCULAR HGB CONC 34.4 g/dl (32.0-36.5); MEAN CORPUSCULAR VOLUME 94.2 fl (80.0-96.0); PLATELET COUNT, AUTOMATED 198 10^3/uL (150-450); RED BLOOD COUNT 3.82 10^6/uL (4.00-5.40); WHITE BLOOD COUNT 8.9 10^3/uL (4.0-10.0)
[2018-11-27 07:48] LABS: ALBUMIN 3.3 GM/DL (3.2-5.2); BILIRUBIN,TOTAL 0.6 MG/DL (0.2-1.0); CALCIUM LEVEL 8.6 MG/DL (8.8-10.2); CHOLESTEROL RISK RATIO 4.5 (<5); CREATININE FOR GFR 1.14 MG/DL (0.55-1.30); GLOMERULAR FILTRATION RATE 51.1 (>45); POTASSIUM SERUM 3.7 MEQ/L (3.5-5.1); TOTAL PROTEIN 6.5 GM/DL (6.4-8.2)
== END ==
LOC: M LAB 06:01
PROVIDERS: ATTEND Internal Medicine Cardiovascular Disease
DX: I73.9 Peripheral vascular disease, unspecified (principal); I11.0 Hypertensive heart disease with heart failure; I48.0 Paroxysmal atrial fibrillation

== ENCOUNTER → 2018-11-29 | Outpatient (CLI) | payer MEDICARE ==
[~2018-11-29] MED LIST changes: +BUPIVACAINE HCL 0.5% 10 ML VIAL As Ordered ONE; +DAYT1CAP9 PO; +FLEC50HA PO; +HEPARIN 1,000 UNITS/ML 10ML VIAL (FOR RADIOLOGY& DIALYSIS ONLY) As Ordered ONE; +ISOVUE-300 61% 100ML VIAL (Q9967) As Ordered ONE; +LIDOCAINE 2% MDV 20 ML VIAL As Ordered ONE; +MIDAZOLAM INJ 2 MG/2 ML VIAL (J2250) As Ordered ONE; +PROTAMINE SULF INJ 50 MG/5 ML VIAL (J2720) As Ordered ONE; +diphenhydrAMINE INJ 50MG/ML VIAL (J1200) As Ordered ONE; +fentaNYL 100 MCG/2 ML INJECTION (J3010) As Ordered ONE
--- NOTE | 2018-12-22 10:16 | REPIR ---
DATE OF PROCEDURE: 11/29/2018 ATTENDING SURGEON: Dr. Rosa Stein RETAIL PLANNER: Selina Staples and Laura Alicia PREOPERATIVE DIAGNOSES: Bilateral claudication, bilateral superficial femoral arterial occlusive disease. POSTOPERATIVE DIAGNOSES: Bilateral claudication, bilateral superficial femoral arterial occlusive disease. PROCEDURE: Left femoral artery cannulation, selective right common femoral artery catheter placement with angiogram, selective right superficial femoral artery catheter placement with angiogram, selective right popliteal artery catheter placement with angiogram, right popliteal artery angioplasty and stent with a 7 x 122 Fany drug-eluting stent postdilated with 6 x 200 balloon, right superficial femoral artery angioplasty and stent with a 7 x 122 Fany drug-eluting stent postdilated with a 6 x 200 balloon, right superficial femoral artery angioplasty and stent with a 7 x 121 Fany stent postdilated with a 6 x 200 balloon, Mynx closure of the left common femoral arteriotomy. INDICATION: The patient is a 63-year-old female with previous angioplasty of her occlusive disease in a right lower extremity and who now has recurrence of her claudication. The patient will undergo an angiogram with possible angioplasty, stent and/or atherectomy. ANESTHESIA: Local with sedation with 2 mg Versed, 100 micrograms fentanyl and 10 mL of local. FLUORO TIME: 7.9 minutes. CONTRAST: 6 mL of Isovue-300. HEPARIN: 7000 units, protamine 50 mg. SEDATION TIME: From 07:50 a.m. to 09:14 a.m. COMPLICATIONS: None. DRAINS: None. IMPLANTS: Stents and Mynx. PROCEDURE: The patient was taken to the angiography suite, placed supine on the angiography room table and then prepped and draped in a standard surgical fashion. The left common femoral artery was cannulated. The catheter was advanced up to the bifurcation and a right lower extremity angiogram was performed showing severe stenosis in the superficial femoral and popliteal arteries. These were then angioplasty and stented using three 7 x 120 Fany drug-eluting stents, one in the popliteal and two in the superficial femoral arteries and these were postdilated with 6 x 200 balloons. A completion angiogram showed resolution of the stenosis with excellent flow through the common femoral into the superficial femoral and popliteal arteries with tibial runoff into the foot. Catheters and wires were removed. A Mynx closure was used to close the arteriotomy in the left common femoral artery with an additional 10 minutes of adjunctive pressure applied for hemostasis. Dressings were then applied. The patient tolerated the procedure well. All instrument, sponge, needle counts were correct at the end of case. There were no complications. Dr. Stein was present for and directed the entire case.
== END | disposition home or self-care (01) ==
LOC: M IRPRO 06:48
PROVIDERS: ATTEND Surgery Vascular Surgery
DX: I70.201 Unspecified atherosclerosis of native arteries of extremities, right leg (principal)
CPT/HCPCS: 37226; 75710; C1725; C1760; C1769; C1874; C1887; C1894; J2250; J2720; J3010; Q9967

== ENCOUNTER 2018-12-28 06:58 | Inpatient (IN) | payer MEDICARE ==
[2018-12-28] VITALS (16 sets, daily range): BP systolic 115–157; BP diastolic 59–79
[~2018-12-28] VITALS: Ht 167.6 cm; Wt 89.9 kg
[~2018-12-28 06:58] MED LIST changes: -DAYT1CAP9 PO; -FLEC50HA PO; -ISOVUE-300 61% 100ML VIAL (Q9967) As Ordered ONE; +ISOVUE-300 61% 50ML VIAL (Q9967) As Ordered ONE; -PROTAMINE SULF INJ 50 MG/5 ML VIAL (J2720) As Ordered ONE
[2018-12-28] MEDS ORDERED: fentaNYL 100 MCG/2 ML INJECTION (J3010) As Ordered ONE (08:34)
[2018-12-28] MEDS ORDERED: MIDAZOLAM INJ 2 MG/2 ML VIAL (J2250) As Ordered ONE (08:34)
[2018-12-28] MEDS ORDERED: ALTEPLASE 2 MG/2 ML VIAL (J2997 PER 1MG) As Ordered ONE ×2 (08:47→09:03)
[2018-12-28] MEDS ORDERED: HEPARIN 25,000 UNITS/250 ML D5W BAG (100 UNITS/ML) As Ordered ONE (09:22)
[2018-12-28] MEDS ORDERED: MOM 30ML SUSPENSION UDC PO PRN (09:30)
[2018-12-28] MEDS ORDERED: ACETAMINOPHEN TAB 650MG DOSE (2X325MG) PO PRN (09:30)
[2018-12-28] MEDS ORDERED: MORPHINE 4 MG/ML 1ML VIAL/SYRINGE (J2270) IV PRN ×2 (09:30)
[2018-12-28] MEDS ORDERED: ONDANSETRON 4MG/2ML VIAL (J2405) IV PRN (09:30)
[2018-12-28] MEDS ORDERED: BISACODYL 10 MG SUPP PR PRN (09:30)
[2018-12-28] MEDS ORDERED: METOCLOPRAMIDE INJ 10MG/2ML VIAL (J2765) IV PRN (09:30)
--- NOTE | 2018-12-28 09:57 | HPEPDOC ---
[facility] Medical History & Physical Date of Admission Dec 28, 2018 Date of Service: Dec 28, 2018 History and Physical Vascular Surgery. Dr Stein Hospitalist. Dr Sally Biggs PCP: Amy SANTANA CC: LLE pain HPI: [id number] with a past medical history significant for PAD and reports LLE pain who was scheduled for LLE angiogram today as per Dr Stein. The pt is s/p arthrectomy/thrombectomy of previously placed SFA stent. The pt was noted to have embolus in tibial vessels with some discoloration of the dorsal aspect of the Left foot and toes. Plan is to arrange admission to ICU for thrombolysis LLE as per Dr Stein. Currently Pt is resting post procedure in IR and is comfortable currently. Denies any fevers, chills, weakness, fatigue, PRICE, CP, SOB, cough, palpitations, abdominal pain, N/V/D or changes in bowel or bladder habits. PMHx: PAD, H/O BLE angioplasty/stents. COPD PRETTY/non compliance with CPAP PAF on Eliquis/Flecainide as per SHELBIE. DM GERD HTN/HHD/diastolic CHF CAD Obesity BMI 32.0 PSHX: C section x 2 breast reduction hysterectomy L knee Rt shoulder rotator cuff hernia repair EGD colonoscopy AVB/Pacemaker SOCHX: Tobacco use: 1/2 ppd ETOH: occasional Illicit Drugs: Denies FAMHX: CAD, [place], CHF, Lung Ca ROS: As noted in HPI, otherwise 11pt ROS of systems reviewed and unremarkable. PE: GEN: 63yoF, appears stated age. Well-nourished, well developed. No acute distress. Alert and oriented x 3. HEENT: Normocephalic, atraumatic. Sclera are nonicteric. Conjunctiva without injection. No facial asymmetry. Moist mucous membranes. CHEST: Regular rate and rhythm, +S1, +S2 LUNGS: Clear to auscultation bilaterally. No wheezes, rales, or rhonchi. ABD: Round, soft, non-tender, non-distended. +Bowel sounds throughout. No rebound or guarding. EXT: No lower extremity edema appreciated. SKIN: [place], dry, warm. Capillary refill <2 sec in Rt foot, PT/DP pulse Rt foot biphasic. There is discoloration noted of the dorsal aspect and toes of the Lt foot with pulses monophasic DP/PT with Doppler. Sluggish cap refill of toes. Catheter Rt groin with dressing intact. NEURO: Alert and oriented x 3. No focal deficits appreciated. Admission labs pending. BMP/CBC/PT/PTT/fibrinogen. A&P: PAD/H/O LLE stent SFA, Pt with LLE pain who was scheduled for LLE angiogram with Dr Stein this AM. The pt is S/P arthrectomy/thrombectomy LLE SFA stent, embolus noted in tibial vessels. Pt to be admitted to ICU as per Dr Stein. Heparin gtt/Alteplase as per protocol per Dr Stein. Q6 H/H, PTT, fibrinogen. pain control. bowel care PPI IV Monitor. MED REC PENDING AT THIS TIME. Hospitalist consulted to assist with medical mgmt. Laboratory Data Labs 24H Admision labs pending. CBC/BMP Item Value Date Time White Blood Count 8.9 10^3/uL 11/27/18 0610 Red Blood Count 3.82 10^6/uL L 11/27/18 0610 Hemoglobin 12.4 g/dl 11/27/18 0610 Hematocrit 36.0 % 11/27/18 0610 Mean Corpuscular Volume 94.2 fl 11/27/18 0610 Mean Corpuscular Hemoglobin 32.5 pg 11/27/18 0610 Mean Corpuscular Hemoglobin Concent 34.4 g/dl 11/27/18 0610 Red Cell Distribution Width 14.1 % 11/27/18 0610 Platelet Count 198 10^3/uL 11/27/18 0610 Sodium Level 142 MEQ/L 11/27/18 0610 Potassium Level 3.7 MEQ/L 11/27/18 0610 Chloride Level 103 MEQ/L 11/27/18 0610 Carbon Dioxide Level 34 MEQ/L H 11/27/18 0610 Anion Gap 5 MEQ/L L 11/27/18 0610 Blood Urea Nitrogen 17 MG/DL 11/27/18 0610 Creatinine 1.14 MG/DL 11/27/18 0610 Glomerular Filtration Rate 51.1 11/27/18 0610 Fasting Glucose 190 MG/DL H 11/27/18 0610 Calcium Level 8.6 MG/DL L 11/27/18 0610 Total Protein 6.5 GM/DL 11/27/18 0610 Albumin 3.3 GM/DL 11/27/18 0610 Albumin/Globulin Ratio 1.03 11/27/18 06 Triglycerides Level 189 MG/DL H 11/27/18 06 Total Cholesterol 153 MG/DL 11/27/18 06 LDL Cholesterol 81 MG/DL 11/27/18 06 Non-HDL Cholesterol (LDL + VLDL) 119 MG/DL 11/27/18 06 Total HDL Cholesterol 34 MG/DL L 11/27/18 06 Cholesterol/HDL Ratio 4.500 11/27/18 06 Bleeding Time Template Minutes 4 MINUTES 11/11/06 1210 Home Medications Scheduled Apixaban (Eliquis) 5 Mg Tablet, 5 MG PO BID Atorvastatin Calcium (Atorvastatin Calcium) 80 Mg Tablet, 80 MG PO DAILY Carvedilol (Carvedilol) 12.5 Mg Tablet, 12.5 MG PO BID Famotidine (Pepcid) 40 Mg Tablet, 40 MG PO DAILY Flecainide Acetate (Flecainide Acetate) 50 Mg Tablet, 50 MG PO BID Furosemide (Furosemide) 40 Mg Tablet, 40 MG PO DAILY Only for weight gain of more 2 lbs Glimepiride (Glimepiride) 4 Mg Tab, 4 MG PO BID Insulin Glargine,Hum.rec.anlog (Toujeo Solostar) 300 Unit/Ml Inj, 65 UNIT SC DAILY Linagliptin (Tradjenta) 5 Mg Tablet, 5 MG PO DAILY Lisinopril (Lisinopril) 10 Mg Tablet, 10 MG PO BID Pantoprazole Sodium (Protonix) 40 Mg Tab, 40 MG PO DAILY Allergies Coded Allergies: dapagliflozin (Unverified Allergy, Unknown, 11/01/18) latex (Unverified Allergy, Unknown, risk, 11/01/18) pravastatin (Unverified Allergy, Unknown, unknown, 11/01/18) diphenhydramine (Unverified Adverse Reaction, Unknown, agitation, 11/01/18) metformin (Unverified Adverse Reaction, Unknown, diarrhea, 11/01/18) prednisone (Unverified Adverse Reaction, Unknown, elevated BS, 11/01/18) A-FIB/CHADSVASC A-FIB History Current/History of A-Fib/PAF?: Yes Current PO Anticoag Therapy: Yes Dasha Cristobal Dec 28, 2018 09:57
--- NOTE | 2018-12-28 11:08 | REPIR ---
DATE OF PROCEDURE: 12/28/2018 ATTENDING SURGEON: Dr. Syeda Stein SUPERVISOR EDGING: Margarita Ochoa PREOPERATIVE DIAGNOSES: Left lower extremity claudication. Chronic total occlusion of superficial, femoral and popliteal arteries in the left lower extremity status post angioplasty and stenting. Coronary artery disease. Diabetes mellitus. POSTOPERATIVE DIAGNOSES: Left lower extremity claudication. Chronic total occlusion of superficial, femoral and popliteal arteries in the left lower extremity status post angioplasty and stenting. Coronary artery disease. Diabetes mellitus. PROCEDURE: Right common femoral arterial cannulation. Selective left common femoral artery catheter placement with left lower extremity angiogram. Selective left superficial femoral artery catheter placement with left lower extremity angiogram. Selective left popliteal artery catheter placement with left lower extremity angiogram. Left common femoral arterial atherectomy with JETSTREAM 2.4/3.4 catheter. Left superficial femoral arterial atherectomy with JETSTREAM 2.4/3.4 catheter. Left popliteal artery atherectomy with JETSTREAM 2.4/3.4 catheter. Left superficial femoral arterial thrombectomy with JETSTREAM 2.4/3.4 catheter. Left popliteal artery thrombectomy with JETSTREAM 2.4/3.4 catheter. Left common femoral artery angioplasty with 6 x 200 mm balloon. Left superficial femoral artery angioplasty with 6 x 200 mm balloon. Left popliteal artery angioplasty with 6 x 200 mm balloon. Instillation of thrombolytic with 10 mg bolus of TPA given through the sheath into the left lower extremity. Placement of a 50 cm infusion catheter with initiation of left lower extremity arterial thrombolysis. INDICATION: Patient is a 63-year-old female with bilateral lower extremity atherosclerotic arterial occlusive disease in her superficial, femoral and popliteal arteries who has previously undergone angioplasty and stenting of the left superficial, femoral and popliteal arteries, which have occluded. The patient will undergo repeat left lower extremity angiography with possible angioplasty, stent, atherectomy or thrombectomy. Risks, benefits and alternative treatment options were discussed with the patient. ANESTHESIA: Was local with sedation with 3 mg Versed, 115 mcg of fentanyl and 10 mL of 2% lidocaine mixed with 0.5% Marcaine. SEDATION TIME: Was from 8:06 a.m. to 9:52 a.m. for a total of 106 minutes. Heparin 7000 units, tPA 10 mg, and Benadryl 50 mg. COMPLICATIONS: None. DRAINS: None. SPECIMENS: None. IMPLANTS: None. PROCEDURE: The patient was taken to the angiography suite, placed supine on the angiography room table and then prepped and draped in a standard surgical fashion. The right common femoral artery was cannulated and a catheter placed up and over the bifurcation under fluoroscopic guidance and placed in the left common femoral artery. The left common femoral artery selective angiography was performed showing the profunda femoris to be patent, but there was occlusion of the superficial femoral artery shortly after its takeoff with the previously placed stents occluded down to and including the popliteal artery stents. There was occlusion of the distal popliteal artery where there was reconstitution just above the anterior tibial artery of the popliteal artery via collaterals. The occluded SFA stents and popliteal stents and artery were recanalized using an angled Glidewire and a Montgomery catheter. The catheter was placed in the popliteal artery in the below knee region and a selective popliteal artery angiogram was performed confirming intraluminal positioning. An atherectomy was then performed of the left common femoral, superficial femoral, and popliteal artery using the JETSTREAM 2.4/3.4 catheter. A thrombectomy of the occluded stents and distal popliteal artery was performed using the JETSTREAM. The common femoral, superficial femoral and popliteal artery were then angioplastied with a 6 x 200 balloon. A completion angiogram showed flow through the common femoral, superficial femoral, and popliteal arteries into the tibial vessels with some thrombus remaining along the length of the superficial femoral and popliteal artery stents as well as thrombus in the distal popliteal artery and anterior tibial artery. A 50 cm infusion catheter was then placed through the common femoral, superficial femoral and popliteal artery. The patient was given a 10 mg bolus of tPA followed by initiation of left lower extremity arterial thrombolysis with continuous infusion of 1 mg an hour. Dressings were applied. The patient tolerated the procedure well. All instrument, sponge and needle counts were correct at the end of the case. There were no complications. Dr. Stein was present for and directed the entire case. The patient was transferred to the ICU for left lower extremity arterial thrombolysis.
[2018-12-28 11:24] LABS: BASO % 0.4 % (0.0-1.0); EOS # 0.2 10^3/uL (0.0-0.50); EOS % 2.1 % (0.0-3.0); HEMATOCRIT 35.5 % (36.0-47.0); LYMPH # 1.7 10^3/uL (1.5-4.5); LYMPH % 21.9 % (24.0-44.0); MEAN CORPUSCULAR HEMOGLOBIN 31.4 pg (27.0-33.0); MEAN CORPUSCULAR HGB CONC 33.8 g/dl (32.0-36.5); MEAN CORPUSCULAR VOLUME 92.9 fl (80.0-96.0); MONO # 0.5 10^3/uL (0.0-0.8); MONO % 6.5 % (0.0-5.0); NEUTROPHILS # 5.3 10^3/uL (1.8-7.7); NEUTROPHILS % 68.6 % (36.0-66.0); PLATELET COUNT, AUTOMATED 149 10^3/uL (150-450); RED BLOOD COUNT 3.82 10^6/uL (4.00-5.40); WHITE BLOOD COUNT 7.7 10^3/uL (4.0-10.0)
[2018-12-28 11:36] LABS: INR 1.49; PROTHROMBIN TIME 18.3 SECONDS (12.1-14.4)
[2018-12-28 11:38] LABS: PARTIAL THROMBOPLASTIN TIME 72.6 SECONDS (25.4-37.6)
[2018-12-28] MEDS ORDERED: DAYT1CAP9 PO (11:47)
[2018-12-28] MEDS ORDERED: FLEC50HA PO (11:47)
[2018-12-28] MEDS ORDERED: LISI10TA4 PO (11:47)
[2018-12-28] MEDS ORDERED: CARV12.5 PO (11:47)
[2018-12-28 12:02] LABS: ALBUMIN 3.1 GM/DL (3.2-5.2); BILIRUBIN,TOTAL 0.6 MG/DL (0.2-1.0); CALCIUM LEVEL 8.6 MG/DL (8.8-10.2); CREATININE FOR GFR 1.23 MG/DL (0.55-1.30); GLOMERULAR FILTRATION RATE 46.8 (>45); TOTAL PROTEIN 6.5 GM/DL (6.4-8.2)
[2018-12-28] MEDS: ALTEPLASE RECOMBINANT 25 MG in NS 225 ML IV SCH (13:24)
[2018-12-28] MEDS: DOCUSATE SODIUM 100 MG CAP PO SCH ×2 (13:25→21:37)
[2018-12-28] MEDS: SENOKOT S TAB PO SCH ×2 (13:25→21:37)
[2018-12-28] MEDS: HEPARIN DRIP 25,000 UNITS in APPROPRIATE DILUENT 1 EA IV SCH (13:25)
[2018-12-28] MEDS: PANTOPRAZOLE 40MG INJ (PROTONIX) (C9113) IV SCH ×2 (13:25→21:37)
[2018-12-28] MEDS ORDERED: GLUCAGON FOR INJ 1 MG VIAL (J1610) SC PRN (13:45)
[2018-12-28] MEDS ORDERED: DEXTROSE 50% 50 ML SYRINGE IV PRN (13:45)
[2018-12-28] MEDS ORDERED: GLUCOSE 4 GM CHEW TABLET PO PRN (13:45)
[2018-12-28] MEDS: HumaLOG INSULIN (NovoLOG) PER UNIT SC SCH (17:16)
[2018-12-28 18:08] LABS: HEMATOCRIT 36.3 % (36.0-47.0); HEMOGLOBIN 12.5 g/dl (12.0-15.5)
--- NOTE | 2018-12-28 18:31 | CR.PDOC ---
General Date of Consultation: Dec 28, 2018 Consultation REASON FOR CONSULTATION/CHIEF COMPLAINT: Management of medical comorbidities. HISTORY OF PRESENT ILLNESS: . 63-year-old female with past medical history of hypertension, dyslipidemia, diabetes mellitus, COPD, obstructive sleep apnea, coronary artery disease, peripheral vascular disease status post bilateral lower extremity angioplasty/stents was admitted under the service of vascular surgery for left lower extremity angiogram. She is status post arthrectomy/thrombectomy of previ ously placed SFA stent. The patient is currently on a tPA and Heparin gtt as per vascular surgery. The hospitalist service has been consulted to manage the patient's medical comorbidities. At this time, the patient states that she is feeling well and denies any acute complaints of fevers, chills, chest pain, palpitations, shortness of breath, abdominal pain, pain in the extremities, numbness/tingling, or any nausea/vomiting/diarrhea. ALLERGIES: Please see below. HOME MEDICATIONS: Please see below. PAST MEDICAL HISTORY: As noted above. PSHX: C section x 2 breast reduction hysterectomy L knee Rt shoulder rotator cuff hernia repair EGD colonoscopy AVB/Pacemaker SOCHX: Tobacco use: 1/2 ppd ETOH: occasional Illicit Drugs: Denies REVIEW OF SYSTEMS: 10 point review of systems negative unless otherwise specified in HPI. PHYSICAL EXAMINATION: VITAL SIGNS: Please see below. GENERAL APPEARANCE: . Awake, alert, in no acute distress HEENT: . Normocephalic, atraumatic RESPIRATORY: . Clear to auscultation bilaterally CARDIOVASCULAR: . Normal rate, normal S1, S2 ABDOMEN: . Soft, nontender, nondistended EXTREMITIES: . Right groin noted to be wrapped in surgical dressing with no active bleeding. Bilateral pulses palpable in the lower extremities distally. LABORATORY DATA: Please see below. ASSESSMENT/PLAN: Hx of PVD with LLE Stent s/p LLE Angiogram s/p arthrectomy/thrombectomy-->Patient started on Heparin/Alteplase gtt as per Vascular surgery Mgmt as per primary team History of paroxysmal atrial fibrillation Eliquis on hold 2/2 Above, Cont Flecainide History of coronary artery disease, diastolic congestive heart failure Continue atorvastatin, volume status euvolemic Hold Lisinopril at this time due to recent contrast exposure Diabetes mellitus Levemir, insulin sliding scale ordered Dyslipidemia Continue atorvastatin GERD Continue Protonix Morbid obesity Complicating medical care DVT prophylaxis On AC/Thrombolytic therapy Vital Signs/I&O Vital Signs Date Time Temp Pulse Resp B/P (MAP) Pulse Ox O2 Delivery O2 Flow Rate FiO2 12/28/18 17:00 98.0 82 22 153/79 (103) 95 Laboratory Data Labs 24H Laboratory Tests 2 12/28/18 11:05: Immature Granulocyte % (Auto) 0.5, White Blood Count 7.7, Red Blood Count 3.82L, Hemoglobin 12.0, Hematocrit 35.5L, Mean Corpuscular Volume 92.9, Mean Corpuscular Hemoglobin 31.4, Mean Corpuscular Hemoglobin Concent 33.8, Red Cell Distribution Width 13.2, Platelet Count 149L, Neutrophils (%) (Auto) 68.6H, Lymphocytes (%) (Auto) 21.9L, Monocytes (%) (Auto) 6.5H, Eosinophils (%) (Auto) 2.1, Basophils (%) (Auto) 0.4, Neutrophils # (Auto) 5.3, Lymphocytes # (Auto) 1.7, Monocytes # (Auto) 0.5, Eosinophils # (Auto) 0.2, Basophils # (Auto) 0.0, Nucleated Red Blood Cells % (auto) 0.0, Prothrombin Time 18.3H, Prothromb Time International Ratio 1.49, Activated Partial Thromboplast Time 72.6H, Fibrinogen 431, Anion Gap 5L, Glomerular Filtration Rate 46.8, Blood Urea Nitrogen 16, Creatinine 1.23, Sodium Level 139, Potassium Level 4.0, Chloride Level 102, Carbon Dioxide Level 32, Calcium Level 8.6L, Aspartate Amino Transf (AST/SGOT) 15, Alanine Aminotransferase (ALT/SGPT) 21, Alkaline Phosphatase 74, Total Bilirubin 0.6, Total Protein 6.5, Albumin 3.1L, Albumin/Globulin Ratio 0.91L 12/28/18 17:12: Bedside Glucose (Misc Panel) 409H 12/28/18 17:58: Activated Partial Thromboplast Time 32.0, Fibrinogen 410 CBC/BMP Laboratory Tests 12/28/18 11:05 Red Blood Count 3.82 L, Mean Corpuscular Volume 92.9, Mean Corpuscular Hemoglobin 31.4, Mean Corpuscular Hemoglobin Concent 33.8, Red Cell Distribution Width 13.2, Neutrophils (%) (Auto) 68.6 H, Lymphocytes (%) (Auto) 21.9 L, Monocytes (%) (Auto) 6.5 H, Eosinophils (%) (Auto) 2.1, Basophils (%) (Auto) 0.4, Neutrophils # (Auto) 5.3, Lymphocytes # (Auto) 1.7, Monocytes # (Auto) 0.5, Eosinophils # (Auto) 0.2, Basophils # (Auto) 0.0, Calcium Level 8.6 L, Aspartate Amino Transf (AST/SGOT) 15, Alanine Aminotransferase (ALT/SGPT) 21, Alkaline Phosphatase 74, Total Bilirubin 0.6, Total Protein 6.5, Albumin 3.1 L 12/28/18 17:58 Allergies Coded Allergies: dapagliflozin (Unverified Allergy, Unknown, UNKNOWN REACTION, 12/28/18) latex (Unverified Allergy, Unknown, risk, 11/01/18) pravastatin (Unverified Allergy, Unknown, unknown, 11/01/18) diphenhydramine (Unverified Adverse Reaction, Unknown, agitation, 11/01/18) metformin (Unverified Adverse Reaction, Unknown, diarrhea, 11/01/18) prednisone (Unverified Adverse Reaction, Unknown, elevated BS, 11/01/18) Home Medications Scheduled Apixaban (Eliquis) 5 Mg Tablet, 5 MG PO BID, (Reported) Atorvastatin Calcium (Atorvastatin Calcium) 80 Mg Tablet, 80 MG PO QHS, (Reported) Carvedilol (Carvedilol) 12.5 Mg Tablet, 12.5 MG PO BID, (Reported) Flecainide Acetate (Flecainide Acetate) 50 Mg Tablet, 50 MG PO BID, (Reported) Glimepiride (Glimepiride) 4 Mg Tab, 4 MG PO BID, (Reported) Insulin Glargine,Hum.rec.anlog (Toujeo Solostar) 300 Unit/Ml Inj, 60 UNIT SC DAILY, (Reported) Linagliptin (Tradjenta) 5 Mg Tablet, 5 MG PO DAILY, (Reported) Lisinopril (Lisinopril) 10 Mg Tablet, 10 MG PO BID, (Reported) Pantoprazole Sodium (Protonix) 40 Mg Tab, 40 MG PO DAILY, (Reported) Scheduled PRN D-Methorphan/PE/Acetaminophen (Daytime Cold-Flu Relief Softgl) 1 Each Capsule, 1 CAP PO for COUGH, (Reported) Famotidine (Pepcid) 40 Mg Tablet, 40 MG PO DAILY PRN for HEARTBURN, (Reported) Furosemide (Furosemide) 40 Mg Tablet, 40 MG PO DAILY PRN for FLUID RETENTION, (Reported) TAKES IF WEIGHT GAIN OF >2LBS NEETA JOHNSON MD Dec 28, 2018 18:31
[2018-12-28] MEDS ORDERED: HumaLOG INSULIN (NovoLOG) PER UNIT SC SCH (21:00)
[2018-12-28] MEDS ORDERED: ATORVASTATIN 20 MG TAB PO SCH (21:00)
[2018-12-28] MEDS: FLECAINIDE 50MG TABLET PO SCH (21:37)
[2018-12-29] VITALS (10 sets, daily range): BP systolic 105–176; BP diastolic 52–97
[2018-12-29 00:47] LABS: PARTIAL THROMBOPLASTIN TIME 41.3 SECONDS (25.4-37.6)
[2018-12-29 00:51] LABS: HEMATOCRIT 34.7 % (36.0-47.0); HEMOGLOBIN 12.1 g/dl (12.0-15.5)
[2018-12-29 06:15] LABS: HEMOGLOBIN 11.9 g/dl (12.0-15.5); MEAN CORPUSCULAR HEMOGLOBIN 32.2 pg (27.0-33.0); MEAN CORPUSCULAR VOLUME 94.9 fl (80.0-96.0); PLATELET COUNT, AUTOMATED 143 10^3/uL (150-450); RED BLOOD COUNT 3.69 10^6/uL (4.00-5.40); WHITE BLOOD COUNT 8.7 10^3/uL (4.0-10.0)
[2018-12-29 06:26] LABS: PARTIAL THROMBOPLASTIN TIME 45.8 SECONDS (25.4-37.6)
[2018-12-29 06:39] LABS: CALCIUM LEVEL 8.6 MG/DL (8.8-10.2); CREATININE FOR GFR 1.15 MG/DL (0.55-1.30); GLOMERULAR FILTRATION RATE 50.6 (>45); POTASSIUM SERUM 3.7 MEQ/L (3.5-5.1)
[2018-12-29] MEDS: FLECAINIDE 50MG TABLET PO SCH (07:48)
[2018-12-29] MEDS: SENOKOT S TAB PO SCH (07:48)
[2018-12-29] MEDS: DOCUSATE SODIUM 100 MG CAP PO SCH (07:49)
[2018-12-29] MEDS: ALTEPLASE RECOMBINANT 25 MG in NS 225 ML IV SCH (07:49)
[2018-12-29] MEDS: PANTOPRAZOLE 40MG INJ (PROTONIX) (C9113) IV SCH (07:49)
[2018-12-29] MEDS: HumaLOG INSULIN (NovoLOG) PER UNIT SC SCH ×3 (07:49→18:38)
[2018-12-29] MEDS: HEPARIN DRIP 25,000 UNITS in APPROPRIATE DILUENT 1 EA IV SCH (08:06)
[2018-12-29] MEDS ORDERED: LEVEMIR (INSULIN DETEMIR) 1 UNITS/0.01ML SC SCH (09:00)
--- NOTE | 2018-12-29 10:39 | IPNPDOC ---
Date Seen The patient was seen on 12/29/18. Progress Note Vascular Surgery. Dr Stein Hospitalist. Dr Sally Biggs PCP: Amy SANTANA CC: LLE pain HPI: [id number] with a past medical history significant for PAD and reports LLE pain who was scheduled for LLE angiogram today as per Dr Stein. The pt is s/p arthrectomy/thrombectomy of previously placed SFA stent. The pt was noted to have embolus in tibial vessels with some discoloration of the dorsal aspect of the Left foot and toes. Plan is to arrange admission to ICU for thrombolysis LLE as per Dr Stein. Currently Pt is resting comfortably. LLE pain resolved, foot warm. Denies any fevers, chills, weakness, fatigue, PRICE, CP, SOB, cough, palpitations, abdominal pain, N/V/D or changes in bowel or bladder habits. PMHx: PAD, H/O BLE angioplasty/stents. COPD PRETTY/non compliance with CPAP PAF on Eliquis/Flecainide as per SHELBIE. DM GERD HTN/HHD/diastolic CHF CAD Obesity BMI 32.0 PSHX: C section x 2 breast reduction hysterectomy L knee Rt shoulder rotator cuff hernia repair EGD colonoscopy AVB/Pacemaker PE: GEN: 63yoF, appears stated age. Well-nourished, well developed. No acute distress. Alert and oriented x 3. HEENT: Normocephalic, atraumatic. Sclera are nonicteric. Conjunctiva without injection. No facial asymmetry. Moist mucous membranes. CHEST: Regular rate and rhythm, +S1, +S2 LUNGS: Clear to auscultation bilaterally. No wheezes, rales, or rhonchi. ABD: Round, soft, non-tender, non-distended. +Bowel sounds throughout. No rebound or guarding. EXT: No lower extremity edema appreciated. SKIN: [place], dry, warm. Capillary refill <2 sec in Rt foot also improved Lt foot this AM, PT/DP pulse Rt foot biphasic. No discoloration noted of the Lt foot this AM with pulses DP/PT obtained with Doppler. Catheter Rt groin with dressing intact. No bleeding. NEURO: Alert and oriented x 3. No focal deficits appreciated. A&P: PAD/H/O LLE stent SFA, Pt with LLE pain who was scheduled for LLE angiogram with Dr Stein 12/28/18. The pt is S/P arthrectomy/thrombectomy LLE SFA stent, embolus noted in tibial vessels. Continue Heparin gtt/Alteplase as per protocol per Dr Stein. Q6 H/H, PTT, fibrinogen. Hgb 11.4 Fibrinogen 394. pain control. bowel care PPI IV The pt is reviewed and examined by Dr Stein this AM. Plan for angiogram today per Dr Stein, likely OK for D/C later today. VS, I&O, 24H, Fishbone Vital Signs/I&O Vital Signs Date Time Temp Pulse Resp B/P (MAP) Pulse Ox O2 Delivery O2 Flow Rate FiO2 12/29/18 08:00 97.1 79 18 156/84 94 117/55 (79) I&O- Last 24 Hours up to 6 AM 12/29/18 06:00 Intake Total 1650 ml Output Total 2250 ml Balance -600 ml Laboratory Data 24H LABS Laboratory Tests 2 12/28/18 11:05: Immature Granulocyte % (Auto) 0.5, White Blood Count 7.7, Red Blood Count 3.82L, Hemoglobin 12.0, Hematocrit 35.5L, Mean Corpuscular Volume 92.9, Mean Corpuscular Hemoglobin 31.4, Mean Corpuscular Hemoglobin Concent 33.8, Red Cell Distribution Width 13.2, Platelet Count 149L, Neutrophils (%) (Auto) 68.6H, Lymphocytes (%) (Auto) 21.9L, Monocytes (%) (Auto) 6.5H, Eosinophils (%) (Auto) 2.1, Basophils (%) (Auto) 0.4, Neutrophils # (Auto) 5.3, Lymphocytes # (Auto) 1.7, Monocytes # (Auto) 0.5, Eosinophils # (Auto) 0.2, Basophils # (Auto) 0.0, Nucleated Red Blood Cells % (auto) 0.0, Prothrombin Time 18.3H, Prothromb Time International Ratio 1.49, Activated Partial Thromboplast Time 72.6H, Fibrinogen 431, Anion Gap 5L, Glomerular Filtration Rate 46.8, Blood Urea Nitrogen 16, Creatinine 1.23, Sodium Level 139, Potassium Level 4.0, Chloride Level 102, Carbon Dioxide Level 32, Calcium Level 8.6L, Aspartate Amino Transf (AST/SGOT) 15, Alanine Aminotransferase (ALT/SGPT) 21, Alkaline Phosphatase 74, Total Bilirubin 0.6, Total Protein 6.5, Albumin 3.1L, Albumin/Globulin Ratio 0.91L 12/28/18 17:12: Bedside Glucose (Misc Panel) 409H 12/28/18 17:58: Activated Partial Thromboplast Time 32.0, Fibrinogen 410 12/28/18 21:23: Bedside Glucose (Misc Panel) 294H 12/29/18 00:28: Activated Partial Thromboplast Time 41.3H, Fibrinogen 413 12/29/18 06:06: Activated Partial Thromboplast Time 45.8H, Fibrinogen 394, Nucleated Red Blood Cells % (auto) 0.0, Anion Gap 5L, Glomerular Filtration Rate 50.6, Blood Urea Nitrogen 12, Creatinine 1.15, Sodium Level 140, Potassium Level 3.7, Chloride Level 104, Carbon Dioxide Level 31, Calcium Level 8.6L CBC/BMP Laboratory Tests 12/28/18 11:05 Red Blood Count 3.82 L, Mean Corpuscular Volume 92.9, Mean Corpuscular Hemoglobin 31.4, Mean Corpuscular Hemoglobin Concent 33.8, Red Cell Distribution Width 13.2, Neutrophils (%) (Auto) 68.6 H, Lymphocytes (%) (Auto) 21.9 L, Monocytes (%) (Auto) 6.5 H, Eosinophils (%) (Auto) 2.1, Basophils (%) (Auto) 0.4, Neutrophils # (Auto) 5.3, Lymphocytes # (Auto) 1.7, Monocytes # (Auto) 0.5, Eosinophils # (Auto) 0.2, Basophils # (Auto) 0.0, Calcium Level 8.6 L, Aspartate Amino Transf (AST/SGOT) 15, Alanine Aminotransferase (ALT/SGPT) 21, Alkaline Phosphatase 74, Total Bilirubin 0.6, Total Protein 6.5, Albumin 3.1 L 12/28/18 17:58 12/29/18 00:28 12/29/18 06:06 Red Blood Count 3.69 L, Mean Corpuscular Volume 94.9, Mean Corpuscular Hemoglo bin 32.2, Mean Corpuscular Hemoglobin Concent 34.0, Red Cell Distribution Width 13.2, Calcium Level 8.6 L Dasha Cristobal Dec 29, 2018 10:39
--- NOTE | 2018-12-29 11:52 | IPNPDOC ---
Subjective Date Seen The patient was seen on 12/29/18. Subjective Chief Complaint/HPI She is seen and examined at the bedside. No acute overnight events noted. Patient denies any acute complaints at this time. Objective Physical Examination General Exam: Positive: Alert, Cooperative, No Acute Distress ENT Exam: Positive: Atraumatic, Mucous membr. moist/pink Neck Exam: Negative: JVD Chest Exam: Positive: Clear to auscultation, Normal air movement Heart Exam: Positive: Rate Normal, Normal S1, Normal S2 Abdomen Exam: Positive: Soft; Negative: Tenderness Extremity Exam: Positive: Other (palpable pulses distally.); Negative: Tenderness, Swelling Psych Exam: Positive: Oriented x 3 Assessment /Plan Plan/VTE VTE Prophylaxis Ordered?: Yes Plan Hx of PVD with LLE Stent s/p LLE Angiogram s/p arthrectomy/thrombectomy-->Patient started on Heparin/Alteplase gtt as per Vascular surgery on 12/28/18 Mgmt as per primary team History of paroxysmal atrial fibrillation Eliquis on hold / Above, Cont Flecainide History of coronary artery disease, diastolic congestive heart failure Continue atorvastatin, volume status euvolemic Hold Lisinopril at this time due to recent contrast exposure Diabetes mellitus Levemir, insulin sliding scale ordered Dyslipidemia Continue atorvastatin GERD Continue Protonix Morbid obesity Complicating medical care DVT prophylaxis On AC/Thrombolytic therapy VS, I&O, 24H, [place]ana Vital Signs/I&O Vital Signs Date Time Temp Pulse Resp B/P (MAP) Pulse Ox O2 Delivery O2 Flow Rate FiO2 12/29/18 10:00 69 136/71 92 105/52 (75) 12/29/18 08:00 97.1 18 I&O- Last 24 Hours up to 6 AM 12/29/18 06:00 Intake Total 1650 ml Output Total 2250 ml Balance -600 ml Laboratory Data 24H LABS Laboratory Tests 2 12/28/18 17:12: Bedside Glucose (Misc Panel) 409H 12/28/18 17:58: Activated Partial Thromboplast Time 32.0, Fibrinogen 410 12/28/18 21:23: Bedside Glucose (Misc Panel) 294H 12/29/18 00:28: Activated Partial Thromboplast Time 41.3H, Fibrinogen 413 12/29/18 06:06: Nucleated Red Blood Cells % (auto) 0.0, Activated Partial Thromboplast Time 45.8H, Fibrinogen 394, Anion Gap 5L, Glomerular Filtration Rate 50.6, Blood Urea Nitrogen 12, Creatinine 1.15, Sodium Level 140, Potassium Level 3.7, Chloride Level 104, Carbon Dioxide Level 31, Calcium Level 8.6L CBC/BMP Laboratory Tests 12/28/18 17:58 12/29/18 00:28 12/29/18 06:06 Red Blood Count 3.69 L, Mean Corpuscular Volume 94.9, Mean Corpuscular Hemoglobin 32.2, Mean Corpuscular Hemoglobin Concent 34.0, Red Cell Distribution Width 13.2, Calcium Level 8.6 L NEETA JOHNSON MD Dec 29, 2018 11:52
[2018-12-29 12:24] LABS: HEMATOCRIT 35.1 % (36.0-47.0); HEMOGLOBIN 11.7 g/dl (12.0-15.5)
[2018-12-29 12:34] LABS: PARTIAL THROMBOPLASTIN TIME 42.3 SECONDS (25.4-37.6)
[2018-12-29] MEDS ORDERED: BUPIVACAINE HCL 0.5% 10 ML VIAL As Ordered ONE (12:46)
[2018-12-29] MEDS ORDERED: MIDAZOLAM INJ 2 MG/2 ML VIAL (J2250) As Ordered ONE (12:46)
[2018-12-29] MEDS ORDERED: fentaNYL 100 MCG/2 ML INJECTION (J3010) As Ordered ONE (12:46)
[2018-12-29] MEDS ORDERED: LIDOCAINE 2% MDV 20 ML VIAL As Ordered ONE (12:46)
[2018-12-29] MEDS ORDERED: ISOVUE-300 61% 50ML VIAL (Q9967) As Ordered ONE (12:47)
[2018-12-29] MEDS ORDERED: HEPARIN 1,000 UNITS/ML 10ML VIAL (FOR RADIOLOGY& DIALYSIS ONLY) As Ordered ONE (13:35)
[2018-12-29] MEDS ORDERED: PROTAMINE SULF INJ 50 MG/5 ML VIAL (J2720) As Ordered ONE (13:38)
--- NOTE | 2018-12-29 15:38 | DS.PDOC ---
Discharge Summary General Date of Admission Dec 28, 2018 at 09:25 Date of Discharge 12/29/18 Discharge Summary PROCEDURES PERFORMED DURING STAY: LLE arterial angiogram and thrombolysis. ADMITTING DIAGNOSES: PAD, H/O BLE angioplasty/stents. LLE claudication symptoms. COPD PRETTY/non compliance with CPAP PAF on Eliquis/Flecainide as per SHELBIE. DM GERD HTN/HHD/diastolic CHF CAD Obesity BMI 32.0 DISCHARGE DIAGNOSES: PAD/H/O LLE stent SFA, Pt with LLE pain who was scheduled for LLE angiogram with Dr Stein 12/28/18. The pt is S/P arthrectomy/thrombectomy LLE SFA stent, embolus noted in tibial vessels. Repeat arterial angiogram 12/29/18 with LLE SFA and popliteal stent/TRAM OPERATOR, thrombolysis discontinued. COPD PRETTY/non compliance with CPAP PAF on Eliquis/Flecainide as per SHELBIE. DM GERD HTN/HHD/diastolic CHF CAD Obesity BMI 32.0 HISTORY OF PRESENT ILLNESS: 63yoF with a past medical history significant for PAD and reports LLE pain who was scheduled for LLE angiogram today as per Dr Stein. The pt is s/p arthrectomy/thrombectomy of previously placed SFA stent. The pt was noted to have embolus in tibial vessels with some discoloration of the dorsal aspect of the Left foot and toes. Plan is to arrange admission to ICU for thrombolysis LLE as per Dr Stein. HOSPITAL COURSE: 63yoF with a past medical history significant for PAD and reports LLE pain who was scheduled for LLE angiogram today as per Dr Stein. The pt is s/p arthrectomy/thrombectomy of previously placed SFA stent. The pt was noted to have embolus in tibial vessels with some discoloration of the dorsal aspect of the Left foot and toes. Plan is to arrange admission to ICU for thrombolysis LLE as per Dr Stein. 12/29/18 AM the pt reported LLE pain resolved, foot warm. Pt had repeat arterial angiogram 12/29/18 with LLE SFA and popliteal stent/TRAM OPERATOR, thrombolysis discontinued. Pt to be observed for 4 hours and discharged as per Dr Stein post angiogram today. DISCHARGE MEDICATIONS: Please see below. ALLERGIES: Please see below. PHYSICAL EXAMINATION ON DISCHARGE: VITAL SIGNS: Please see below. GEN: 63yoF, appears stated age. Well-nourished, well developed. No acute distress. Alert and oriented x 3. HEENT: Normocephalic, atraumatic. Sclera are nonicteric. Conjunctiva without injection. No facial asymmetry. Moist mucous membranes. CHEST: Regular rate and rhythm, +S1, +S2 LUNGS: Clear to auscultation bilaterally. No wheezes, rales, or rhonchi. ABD: Round, soft, non-tender, non-distended. +Bowel sounds throughout. No rebound or guarding. EXT: No lower extremity edema appreciated. SKIN: [place], dry, warm. Capillary refill <2 sec in Rt foot, PT/DP pulse Rt foot biphasic. There is discoloration noted of the dorsal aspect and toes of the Lt foot with pulses monophasic DP/PT with Doppler. Sluggish cap refill of toes. Catheter Rt groin with dressing intact. NEURO: Alert and oriented x 3. No focal deficits appreciated. LABORATORY DATA: Please see below. IMAGING: Angiogram 12/28/18 The patient was taken to the angiography suite, placed supine on the angiography room table and then prepped and draped in a standard surgical fashion. The right common femoral artery was cannulated and a catheter placed up and over the bifurcation under fluoroscopic guidance and placed in the left common femoral artery. The left common femoral artery selective angiography was performed showing the profunda femoris to be patent, but there was occlusion of the superficial femoral artery shortly after its takeoff with the previously placed stents occluded down to and including the popliteal artery stents. There was occlusion of the distal popliteal artery where there was reconstitution just above the anterior tibial artery of the popliteal artery via collaterals. The occluded SFA stents and popliteal stents and artery were recanalized using an angled Glidewire and a [place] catheter. The catheter was placed in the popliteal artery in the below knee region and a selective popliteal artery angiogram was performed confirming intraluminal positioning. An atherectomy was then performed of the left common femoral, superficial femoral, and popliteal artery using the JETSTREAM 2.4/3.4 catheter. A thrombectomy of the occluded stents and distal popliteal artery was performed using the JETSTREAM. The common femoral, superficial femoral and popliteal artery were then angioplastied with a 6 x 200 balloon. A completion angiogram showed flow through the common femoral, superficial femoral, and popliteal arteries into the tibial vessels with some thrombus remaining along the length of the superficial femoral and popliteal artery stents as well as thrombus in the distal popliteal artery and anterior tibial artery. A 50 cm infusion catheter was then placed through the common femoral, superficial femoral and popliteal artery. The patient was given a 10 mg bolus of tPA followed by initiation of left lower extremity arterial thrombolysis with continuous infusion of 1 mg an hour. Dressings were applied. Angiogram 12/29/18 report pending. DIET: CC Activity as tolerated but avoid heavy lifting and strenuous activity for 5 days. DISCHARGE PLAN: D/C home after cleared per Dr Stein post procedure. FU with Dr Stein and PCP 5-7 days. Pt to resume Eliquis as outpt. DISCHARGE INSTRUCTIONS: 1. Avoid strenuous activity and heavy lifting for 5 days. DISCHARGE CONDITION: Stable. TIME SPENT ON DISCHARGE: Greater than 30 minutes. Vital Signs/I&Os Vital Signs Date Time Temp Pulse Resp B/P (MAP) Pulse Ox O2 Delivery O2 Flow Rate FiO2 12/29/18 10:00 69 136/71 92 105/52 (75) 12/29/18 08:00 97.1 18 I&O- Last 24 Hours up to 6 AM 12/29/18 06:00 Intake Total 1650 ml Output Total 2250 ml Balance -600 ml Laboratory Data Labs 24H Laboratory Tests 2 12/28/18 17:12: Bedside Glucose (Misc Panel) 409H 12/28/18 17:58: Activated Partial Thromboplast Time 32.0, Fibrinogen 410 12/28/18 21:23: Bedside Glucose (Misc Panel) 294H 12/29/18 00:28: Activated Partial Thromboplast Time 41.3H, Fibrinogen 413 12/29/18 06:06: Nucleated Red Blood Cells % (auto) 0.0, Activated Partial Thromboplast Time 45.8H, Fibrinogen 394, Anion Gap 5L, Glomerular Filtration Rate 50.6, Blood Urea Nitrogen 12, Creatinine 1.15, Sodium Level 140, Potassium Level 3.7, Chloride Le will 104, Carbon Dioxide Level 31, Calcium Level 8.6L 12/29/18 11:45: Bedside Glucose (Misc Panel) 332H 12/29/18 12:09: Activated Partial Thromboplast Time 42.3H, Fibrinogen 466H CBC/BMP Laboratory Tests 12/28/18 17:58 12/29/18 00:28 12/29/18 06:06 Red Blood Count 3.69 L, Mean Corpuscular Volume 94.9, Mean Corpuscular Hemoglobin 32.2, Mean Corpuscular Hemoglobin Concent 34.0, Red Cell Distribution Width 13.2, Calcium Level 8.6 L 12/29/18 12:09 FSBS Laboratory Tests Test 12/28/18 17:12 12/28/18 21:23 12/29/18 11:45 Range/Units Bedside Glucose (Misc Panel) 409 294 332 80-115 MG/DL Discharge Medications Scheduled Apixaban (Eliquis) 5 Mg Tablet, 5 MG PO BID, (Reported) Atorvastatin Calcium (Atorvastatin Calcium) 80 Mg Tablet, 80 MG PO QHS, (Reported) Carvedilol (Carvedilol) 12.5 Mg Tablet, 12.5 MG PO BID, (Reported) Flecainide Acetate (Flecainide Acetate) 50 Mg Tablet, 50 MG PO BID, (Reported) Glimepiride (Glimepiride) 4 Mg Tab, 4 MG PO BID, (Reported) Insulin Glargine,Hum.rec.anlog (Toujeo Solostar) 300 Unit/Ml Inj, 60 UNIT SC DAILY, (Reported) Linagliptin (Tradjenta) 5 Mg Tablet, 5 MG PO DAILY, (Reported) Lisinopril (Lisinopril) 10 Mg Tablet, 10 MG PO BID, (Reported) Pantoprazole Sodium (Protonix) 40 Mg Tab, 40 MG PO DAILY, (Reported) Scheduled PRN D-Methorphan/PE/Acetaminophen (Daytime Cold-Flu Relief Softgl) 1 Each Capsule, 1 CAP PO for COUGH, (Reported) Famotidine (Pepcid) 40 Mg Tablet, 40 MG PO DAILY PRN for HEARTBURN, (Reported) Furosemide (Furosemide) 40 Mg Tablet, 40 MG PO DAILY PRN for FLUID RETENTION, (Reported) TAKES IF WEIGHT GAIN OF >2LBS Allergies Coded Allergies: dapagliflozin (Unverified Allergy, Unknown, UNKNOWN REACTION, 12/28/18) latex (Unverified Allergy, Unknown, risk, 11/01/18) pravastatin (Unverified Allergy, Unknown, unknown, 11/01/18) diphenhydramine (Unverified Adverse Reaction, Unknown, agitation, 11/01/18) metformin (Unverified Adverse Reaction, Unknown, diarrhea, 11/01/18) prednisone (Unverified Adverse Reaction, Unknown, elevated BS, 11/01/18) Dasha Cristobal Dec 29, 2018 15:38
[2018-12-29 18:10] LABS: HEMATOCRIT 38.1 % (36.0-47.0); HEMOGLOBIN 13.1 g/dl (12.0-15.5)
[2018-12-29 18:19] LABS: PARTIAL THROMBOPLASTIN TIME 24.8 SECONDS (25.4-37.6)
--- NOTE | 2019-01-24 14:47 | REPIR ---
DATE OF PROCEDURE: 12/29/2018 PREOPERATIVE DIAGNOSIS: Left lower extremity lysis followup. left lower extremity angioplasty and stenting MYNX closure of the right common femoral arteriotomy. SURGEON: Dr. Syeda Stein. CLINICAL PROGRAM COORDINATOR: Margarita Alicia ANESTHESIA: Local. FLUORO TIME: 7.3 minutes. CONTRAST: 8 mL of Isovue-300. HEPARIN: 5000 units. tPA 12 mg, protamine 50 mg COMPLICATIONS: None. DRAINS: None. SPECIMENS: None. IMPLANT: Stents. INDICATION: The patient is a 63-year-old female who underwent atherectomy and thrombectomy of her thrombosed left lower extremity stents who underwent thrombolysis and now follows up for a lysis followup. DESCRIPTION OF PROCEDURE: The patient was taken to the angiography suite, placed supine on the angiography table and then prepped and draped in a standard surgical fashion. The infusion catheter was removed over a Fundationson wire and a left lower extremity angiogram was performed showing residual stenosis in the left superficial femoral and popliteal arteries, which underwent angioplasty and stenting. The completion angiogram showed resolution of the stenosis with excellent flow distally. Catheters and wires were removed. A MYNX closure was used close the right common femoral arteriotomy with an additional 10 minutes of adjunctive pressure applied for hemostasis. Dressings were then applied. The patient tolerated procedure well. All instrument, sponge and needle counts were correct at the end of the case. There were no complications. Dr. Stein was present for and directed the entire case. The patient was transferred to the intensive care unit (ICU) in stable condition.
== END 2018-12-29 19:20 | disposition home or self-care (01) | DRG 271 ==
LOC: M IRPRO 06:58 → M ICU 09:25
PROVIDERS: ADMIT Surgery Vascular Surgery; ATTEND Surgery Vascular Surgery
PROC: B41G1ZZ Fluoroscopy of Left Lower Extremity Arteries using Low Osmolar Contrast (ICD-10-PCS; principal; 2018-12-28)
PROC: 04CL3ZZ Extirpation of Matter from Left Femoral Artery, Percutaneous Approach (ICD-10-PCS; 2018-12-28)
PROC: 04CN3ZZ Extirpation of Matter from Left Popliteal Artery, Percutaneous Approach (ICD-10-PCS; 2018-12-28)
PROC: 3E05317 Introduction of Other Thrombolytic into Peripheral Artery, Percutaneous Approach (ICD-10-PCS; 2018-12-28)
PROC: 047L3DZ Dilation of Left Femoral Artery with Intraluminal Device, Percutaneous Approach (ICD-10-PCS; 2018-12-29)
PROC: 047N3DZ Dilation of Left Popliteal Artery with Intraluminal Device, Percutaneous Approach (ICD-10-PCS; 2018-12-29)
PROC: B41G1ZZ Fluoroscopy of Left Lower Extremity Arteries using Low Osmolar Contrast (ICD-10-PCS; 2018-12-29)
PROC: 3E05317 Introduction of Other Thrombolytic into Peripheral Artery, Percutaneous Approach (ICD-10-PCS; 2018-12-29)
DX: I70.212 Atherosclerosis of native arteries of extremities with intermittent claudication, left leg (principal); T82.868A Thrombosis due to vascular prosthetic devices, implants and grafts, initial encounter; T82.856A Stenosis of peripheral vascular stent, initial encounter; I50.32 Chronic diastolic (congestive) heart failure; G47.33 Obstructive sleep apnea (adult) (pediatric); Z91.19 Patient's noncompliance with other medical treatment and regimen; I11.0 Hypertensive heart disease with heart failure; I25.10 Atherosclerotic heart disease of native coronary artery without angina pectoris; E66.01 Morbid (severe) obesity due to excess calories; Z68.32 Body mass index [BMI] 32.0-32.9, adult; I48.0 Paroxysmal atrial fibrillation; Z79.01 Long term (current) use of anticoagulants; J44.9 Chronic obstructive pulmonary disease, unspecified; K21.9 Gastro-esophageal reflux disease without esophagitis; Z79.899 Other long term (current) drug therapy; Z91.040 Latex allergy status; Z88.8 Allergy status to other drugs, medicaments and biological substances; Z95.0 Presence of cardiac pacemaker; E78.5 Hyperlipidemia, unspecified; E11.9 Type 2 diabetes mellitus without complications; Y83.1 Surgical operation with implant of artificial internal device as the cause of abnormal reaction of the patient, or of later complication, without mention of misadventure at the time of the procedure

== ENCOUNTER → 2019-05-03 | Outpatient (CLI) | payer MEDICARE ==
[~2019-05-03] MED LIST changes: -BUPIVACAINE HCL 0.5% 10 ML VIAL As Ordered ONE; +DAYT1CAP9 PO; +FLEC50HA PO; -GLIM4TAB PO; +GLIM4TAB3 PO; -HEPARIN 1,000 UNITS/ML 10ML VIAL (FOR RADIOLOGY& DIALYSIS ONLY) As Ordered ONE; -ISOVUE-300 61% 50ML VIAL (Q9967) As Ordered ONE; -LIDOCAINE 2% MDV 20 ML VIAL As Ordered ONE; +LISI10TA15 PO; -LISI10TA2 PO; -MIDAZOLAM INJ 2 MG/2 ML VIAL (J2250) As Ordered ONE; -diphenhydrAMINE INJ 50MG/ML VIAL (J1200) As Ordered ONE; -fentaNYL 100 MCG/2 ML INJECTION (J3010) As Ordered ONE
--- NOTE | 2019-05-03 11:52 | REP ---
Gastric emptying nuclear scintigraphy: History: Gastroparesis. Heartburn. Technique: 1.0 mCi of technetium-99m sulfur colloid was ingested in two scrambled eggs and 6 ounces of water and sequential anterior and posterior images are acquired for an 89-minute imaging observation period. Regions of interest are drawn around the stomach to plot gastric emptying. Scintigraphic findings: Expected T1/2 is 90 minutes. 44 % emptying is observed in this patient during the 89-minute imaging observation period, for a calculated T1/2 in this patient of 98 minutes. Impression: Normal gastric emptying. Electronically Signed by Denys Lopez MD 05/03/2019 11:44 A
== END ==
LOC: M RAD 06:37
PROVIDERS: ATTEND Internal Medicine Gastroenterology
DX: K31.84 Gastroparesis (principal); R12 Heartburn
CPT/HCPCS: 78264; A9541

== ENCOUNTER 2019-05-14 10:45 | Day surgery (SDC) | payer MEDICARE ==
[~2019-05-14] VITALS: Ht 165.1 cm; Wt 97.7 kg
[~2019-05-14 10:45] MED LIST changes: +NS 1,000 ML IV ONE
[2019-05-14] MEDS ORDERED: LIDOCAINE 2% INJ 100 MG/5 ML SDV (FOR ANES.) As Ordered ONE ×2 (12:28→13:34)
[2019-05-14] MEDS ORDERED: PROPOFOL 200 MG/20 ML VIAL As Ordered ONE (12:28)
[2019-05-14] MEDS ORDERED: SCOPOLAMINE 1MG TRANSDERMAL PATCH As Ordered ONE (12:35)
[2019-05-14] MEDS ORDERED: SCOPOLAMINE 1MG TRANSDERMAL PATCH TOP ONE (12:45)
--- NOTE | 2019-05-14 13:35 | ROOR ---
Patient Name: Hailey Bowman Procedure Date: 05/14/2019 1:02 PM Date of : 1955 Age: 63 Room: [facility] Gender: Female Note Status: Finalized Procedure: Upper GI endoscopy Indications: Heartburn, Eructation, Regurgitation Providers: Mejia MICHELLE MD Referring MD: ESTHER BRADLEY Requesting Provider: Medicines: Monitored Anesthesia Care Complications: No immediate complications. Procedure: Pre-Anesthesia Assessment: - The heart rate, respiratory rate, oxygen saturations, blood pressure, adequacy of pulmonary ventilation, and response to care were monitored throughout the procedure. The Endoscope was introduced through the mouth, and advanced to the second part of duodenum. The upper GI endoscopy was accomplished without difficulty. The patient tolerated the procedure well. Findings: One 4 mm polyp was found in the middle third of the esophagus. The polyp was removed with a jumbo cold forceps. Resection and retrieval were complete. No endoscopic abnormality was evident in the esophagus to explain the patient's complaint of dysphagia. This was biopsied with a cold forceps for evaluation of eosinophilic esophagitis. The entire examined stomach was normal. The examined duodenum was normal. Impression: - One small esophageal polyp/papilloma was found. Resected and retrieved. - No endoscopic esophageal abnormality to explain patient's dysphagia. Biopsied. - Normal stomach. - Normal examined duodenum. Recommendation: - Telephone endoscopist for pathology results in 2 weeks. - Observe patient's clinical course. - Follow an antireflux regimen. - Eat smaller, more frequent meals throughout the day. - Low fat diet. - Liquid/soft foods are tolerated better than solid foods. - Low fiber/well cooked vegetables are tolerated better than high fiber/fibrous foods/raw vegetables. - Avoid medications that inhibit gastric/intestinal motility such as narcotic medications. Mejia Michelle MD Mejia MICHELLE MD 05/14/2019 1:35:16 PM Electronically signed by Mejia MICHELLE MD Number of Addenda: 0 Note Initiated On: 05/14/2019 1:02 PM Estimated Blood Loss: Estimated blood loss: none.
[2019-05-14 13:55] VITALS: BP 141/95
== END 2019-05-14 14:05 | disposition home or self-care (01) ==
LOC: M OPP 10:45
PROVIDERS: ATTEND Internal Medicine Gastroenterology
DX: K22.8 Other specified diseases of esophagus (principal); R13.10 Dysphagia, unspecified; R12 Heartburn; R14.2 Eructation; R11.10 Vomiting, unspecified; I50.9 Heart failure, unspecified; E11.9 Type 2 diabetes mellitus without complications; Z79.4 Long term (current) use of insulin; Z79.899 Other long term (current) drug therapy; Z88.8 Allergy status to other drugs, medicaments and biological substances; Z91.040 Latex allergy status; Z95.810 Presence of automatic (implantable) cardiac defibrillator

== ENCOUNTER → 2019-07-12 | Outpatient (CLI) | payer MEDICARE ==
[~2019-07-12] MED LIST changes: -NS 1,000 ML IV ONE
[2019-07-12 09:44] LABS: CALCIUM LEVEL 9.2 MG/DL (8.8-10.2); CREATININE FOR GFR 1.15 MG/DL (0.55-1.30); GLOMERULAR FILTRATION RATE 50.4 (>45); POTASSIUM SERUM 4.1 MEQ/L (3.5-5.1)
== END ==
LOC: M LAB 08:47
PROVIDERS: ATTEND Internal Medicine Cardiovascular Disease
DX: I48.0 Paroxysmal atrial fibrillation (principal)

== ENCOUNTER → 2020-04-07 | Outpatient (CLI) | payer MEDICARE ==
[~2020-04-07] MED LIST changes: -ASPI81TA85 PO; +ASPI81TA86 PO; -GLIM4TAB3 PO; +GLIM4TAB5 PO; +ONDA4TAB6 PO; +TRUL0.5I SC
--- NOTE | 2020-04-17 18:00 | REP ---
BILATERAL LOWER EXTREMITY DUPLEX DOPPLER ARTERIAL ULTRASOUND COMPARISON: 02/06/2019. TECHNIQUE: Real-time ultrasound evaluation and duplex Doppler interrogation of the bilateral lower extremity arterial systems is performed. Ankle brachial indices (MOISES) bilaterally 0.9. [id number] scattered plaque is seen diffusely bilaterally. There are bilateral stents again noted of the superficial femoral arteries extending proximal to distal. 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 monophasic waveforms are seen throughout the right lower extremity arterial system. There is significant decreased velocity in the proximal superficial femoral artery at 9.9 cm/s with occlusion of the mid aspect of the superficial femoral artery. Collateral vessels reconstitute the distal right superficial femoral artery. On the left, triphasic waveforms are seen of the common femoral artery. There is monophasic waveform in the proximal left superficial femoral artery within the stents with biphasic waveforms seen distal to that. There is increased peak systolic velocity in the mid left superficial femoral artery and decreased velocity in the distal left superficial femoral artery suggesting significant stenosis in that region approximately 3:1. Peak systolic velocity just distal to the stent is 123.1 cm/s. There is increased velocity in the distal left anterior tibial artery compared to the proximal aspect suggesting 2:1 stenosis of that vessel. VELOCITY CHART BILATERAL LOWER EXTREMITIES RIGHT PSV (cm/s) LEFT PSV (cm/s) Common femoral artery 157.5 179.5 Profunda 174.8 166.6 Proximal SFA 9.9 253.1 Mid SFA Occluded 188.6 Distal SFA 20.2 34.0 Popliteal artery 41.6 83.1 Proximal DARRYL 22.2 24.4 Tibioperoneal trunk 39.0 77.3 Proximal [employer] OFF[employer]ER 34.0 56.6 Distal [employer] OFF[employer]ER 16.6 41.4 Distal DARRYL 22.7 62.0 MTDD
== END ==
LOC: M RAD 06:48
PROVIDERS: ATTEND Physician Assistant
DX: I70.211 Atherosclerosis of native arteries of extremities with intermittent claudication, right leg (principal); I70.92 Chronic total occlusion of artery of the extremities

== ENCOUNTER → 2020-04-16 | Outpatient (CLI) | payer MEDICARE ==
[2020-04-16 07:30] LABS: HEMATOCRIT 37.4 % (36.0-47.0); HEMOGLOBIN 12.5 g/dl (12.0-15.5); MEAN CORPUSCULAR HEMOGLOBIN 30.7 pg (27.0-33.0); MEAN CORPUSCULAR HGB CONC 33.4 g/dl (32.0-36.5); MEAN CORPUSCULAR VOLUME 91.9 fl (80.0-96.0); PLATELET COUNT, AUTOMATED 228 10^3/uL (150-450); RED BLOOD COUNT 4.07 10^6/uL (4.00-5.40); WHITE BLOOD COUNT 10.7 10^3/uL (4.0-10.0)
[2020-04-16 07:53] LABS: CREATININE FOR GFR 1.37 MG/DL (0.55-1.30); GLOMERULAR FILTRATION RATE 41.2 (>45); POTASSIUM SERUM 3.8 MEQ/L (3.5-5.1)
== END ==
LOC: M LAB 06:46
PROVIDERS: ATTEND Physician Assistant
DX: I70.213 Atherosclerosis of native arteries of extremities with intermittent claudication, bilateral legs (principal)

== ENCOUNTER → 2020-05-14 | Outpatient (CLI) | payer MEDICARE ==
[~2020-05-14] MED LIST changes: +ISOVUE-300 61% 50ML VIAL As Ordered ONE; +LIDOCAINE 1% MDV 20ML VIAL As Ordered ONE; +MIDAZOLAM INJ 2MG/2ML VIAL (J2250 PER 1MG) As Ordered ONE; +fentaNYL 100 MCG/2 ML INJECTION (J3010) As Ordered ONE
--- NOTE | 2020-05-14 09:42 | ROOPDOC ---
[facility] Report Of Operation Report of Operation DATE OF PROCEDURE: 05/14/20 PREPROCEDURE DIAGNOSES: Atherosclerosis of the mcgrath arteries with lifestyle limiting claudication right lower extremity POSTPROCEDURE DIAGNOSES: Same PROCEDURE: 1. Ultrasound-guided access left common femoral artery 2. Aortoiliofemoral arteriogram with selective common iliac and external iliac arteries were performed. Please see interpretation above. We then selected the right common femoral artery and superficial femoral artery and right lower extremity runoff was performed. Please see interpretation above. We then advan ye a Glidewire and a crossing catheter across the occlusion in the right superficial femoral artery and a quick injection below the knee through the crossing catheter confirmed we were in the true lumen. Replace the wire removed the catheter and exchange the sheath for 6 x 45 destination sheath over the wire using the Seldinger technique. The sheath was flushed with saline. We then utilized to 6 x 200 Alpine balloon to angioplasty the length the superficial femoral artery for three-minute inflations. Following this there is a marked improvement in flow but still several areas of residual stenosis due to what appeared to be intimal hyperplasia. We discussed with the patient at that time that my recommendation would be for a right lower extremity bypass the patient was adamant that she had an endovascular options at all possible. She does not want to proceed with bypass. Therefore we realigned the existing stents with Innova stent, 6 x 150 along the length of occlusion and extending to the origin of the superficial femoral artery which was previously not stented. We then postdilated this was the 6 x 200 Alpine balloon. Following this there was a marked improvement in flow although it is rated at the popliteal with 3 vessel runoff and no embolization extravasation or dissection noted. We then retracted the sheath to the proximal common iliac artery and Iliac arteries 3. Selection right common femoral and superficial femoral artery with right lower extremity arteriogram and runoff 4. 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 Angioplasty right superficial femoral artery with 6 x 200 Alpine balloon 6. Stenting right superficial femoral artery with 6 x 150 Innova stent distal to mid and 7 x 150 Innova stent from mid to origin 7. Post-dilation Innova stent to 6 x 200 Alpine balloon 8. Balloon expandable stent placement right iliac arteries: 7 x 37 express distal common iliac artery/proximal external iliac artery and 6 x 57 expressed stent extension external iliac artery 9. Angioplasty right distal external iliac artery, common femoral artery into proximal SFA with 7 x 57 express balloon 10. Completion arteriogram 11. Mynx closure left common femoral artery SURGEON: Lior Ruiz MD ANESTHESIA: Local anesthesia 7 mL lidocaine. Moderate intravenous conscious sedation was supervised by Dr. Ruiz. The patient was independently monitored by registered nurse assigned to the Department of radiology using automated blood pressure, EKG, and pulse oximetry. The details sedation record is permanently stored in the hospital information system. The following is a brief sedation record: Start time 07:34, stop time 08:44, Versed 1.5 mg IV, fentanyl 75 g IV, heparin 4000 units IV. CONTRAST: 62 mL Isovue-300 INDICATION FOR PROCEDURE: This is a very pleasant 64-year-old patient with severe bilateral lower extremity peripheral vascular disease status post multiple interventions in the past with another provider, who has recurrent lifestyle limiting claudication, with right lower extremity worse than the left. Risks benefits and alternatives to an arteriogram potential intervention were explained to the patient and she is agreeable to proceed. Informed consent was obtained. INTERPRETATION: 1. The distal aorta and left iliac segments are widely patent. No significant stenosis noted in the left common iliac artery, hypogastric, or external iliac artery. The right proximal common iliac arteries widely patent then focally narrows distally at the bifurcation into the hypogastric and external iliac artery. The focal stenosis at the proximal external iliac artery is approximately 70%. The hypogastric is widely patent. Distal to the stenosis, there is diffuse 40% stenosis through the external iliac artery and proximal common femoral artery. No heavy calcified plaque is noted. 2. The right common femoral artery is 20-30% narrowed by plaque, but has good flow into the profunda which has some stenosis near the origin but good flow through the thigh. There is a 60% narrowing at the origin of the SFA, and no stent is noted for the first few centimeters of the SFA. There are then multiple stents extending through the superficial femoral artery and popliteal artery. There is occlusion of the stent 1 cm from their origin and they do not reconstitute until the popliteal artery at the knee. The collaterals from the profunda provide the reconstitution. There is then rapid flow through the widely patent distal popliteal artery into all 3 tibial vessels. They are diminutive in size but patent to the distal foot. The significant tibial stenosis noted. 3. After crossing the chronic total occlusion of the right superficial femoral artery, quit contrast injection confirmed we reviewed the true lumen. 4. After angioplasty of the superficial femoral artery, there was a marked improvement in flow, which suggested to me that this was intimal hyperplasia and not clot. There were still several areas of 50-60% residual stenosis despite three-minute angioplasties along the length of the vessel, as well as the stenosis at the origin of the SFA. 5. After stenting superficial femoral artery with a 6 x 150 Innova stent distal ly overlapped by 7 x 150 Innova stent proximally to the origin of the SFA, there was still some residual stenosis and post-dilation was performed with a 6 x 200 balloon. Later in the case, we also post-dilated the origin of the SFA with a 7 x 37 express balloon which dramatically improve flow through the entire SFA. No extravasation embolization or dissections were noted. 6. After stenting the right common iliac artery with a 7 x 37 expressed stent extending with a 6 x 57 expressed stent through the external iliac artery, there is widely patent flow with no significant residual stenosis, no embolization, no extravasation, no dissection. After gentle angioplasty with the balloon through the common femoral artery as well, widely patent flow was noted with no d issection or extravasation. REPORT OF OPERATION: The patient was brought to the angiographic suite in stable condition. Her bilateral groins were prepped and draped in sterile fashion. A timeout was performed. Sedation was administered without complication. Local anesthesia was administered to the skin and subcutaneous tissue over the left common femoral artery. A microneedle was used to access the artery under ultrasound guidance. A wire was passed through this access and the needle was removed and a 4 Slovenian sheath was placed and flushed with saline. A Glidewire and flushing catheter were advanced into the distal aorta. Aortoiliofemoral arteriograms were performed. Please see interpretation above. We then went up and over the bifurcation with the Glidewire in the catheter and selected the right common iliac artery and right iliac arteriograms were performed. Please see interpretation above. We then selected the right common femoral and superficial femoral artery and right lower extremity runoff was performed. Please see interpretation above. We then crossed the occlusion in the right superficial femoral artery with a crossing catheter and to quit contrast injection and the popliteal confirmed we were in the true lumen. We then removed the catheter and exchange the sheath for 6 Slovenian 45 cm destination sheath over the wire and flushed sheath with saline. We advanced a 6 x 200 Alpine balloon over the wire and three-minute angioplasties were performed along the length of the SFA on the way to the origin. On this there was a marked improvement in flow, but still some residual stenosis throughout and some focal stenoses that were over 50%. The origin was still a little bit stenotic as well. No extravasation or dissection were noted. Due to the marked improvement in flow, we felt this was likely intimal hyperplasia and not just thrombosis. We therefore discussed with the patient the option for a right femoral to below- knee bypass and she adamantly advocated for an endovascular option. She said she really does not want to do open surgery, therefore we told her we could try to improve flow by relining her stents but that I was not sure of the long-term patency of this. We therefore Duplantis 6 x 150 Innova stent distally and extended this proximally to the origin of the SFA with a 7 x 150 Innova stent and postdilated these with a 6 x 200 balloon. Following this there was widely patent flow but still a little bit of narrowing at the origin of the SFA. Overall the flow was much better with good runoff through the tibialis and no embolization or extravasation or dissection noted. We then retracted the sheath to the origin of the common iliac artery. A 6 x 57 expressed stent was deployed distal and extended proximal into the distal common iliac artery with a 7 x 37 expressed stent. The 6-based 57 balloon was used angioplasty the common femoral artery, as well as the 7 x 37 express balloon through the origin of the superficial femoral artery. Following this, there is widely patent inflow through the iliac system, the common femoral artery, and the SFA with no significant residual stenosis. Immediately the patient's that her foot felt much better and was warmer. We extended the sheath over the wire for a short 6 Slovenian sheath into plantar Mynx closure device with good hemostasis. Pressure was held for 10 minutes and sterile dressings were applied. The patient was then taken to recovery in stable condition. She tolerated the procedure and the sedation well. ESTIMATED BLOOD LOSS: Approximately 5 mL. COMPLICATIONS: None. PLAN: Okay to resume home diet medications. Okay to resume eliquis tonight. No lifting greater than 5 pounds or strenuous exercise for 72 hours. Okay to remove dressing and shower tomorrow. We'll see the patient back in a week to check her perfusion and her groin access site. I reiterated to her the importance of surveillance imaging on a go forward basis as she was lost to follow-up for a while. She is agreeable. We appreciate the opportunity to produce pain in the care of this patient. LIOR RUIZ MD May 14, 2020 09:42
[2020-05-14 12:40] VITALS: BP 125/55
== END ==
LOC: M IRPRO 06:09
PROVIDERS: ATTEND Surgery Vascular Surgery
DX: I70.213 Atherosclerosis of native arteries of extremities with intermittent claudication, bilateral legs (principal); I70.92 Chronic total occlusion of artery of the extremities; J44.9 Chronic obstructive pulmonary disease, unspecified; M54.30 Sciatica, unspecified side; G47.30 Sleep apnea, unspecified; I10 Essential (primary) hypertension; K21.9 Gastro-esophageal reflux disease without esophagitis; E11.9 Type 2 diabetes mellitus without complications; I44.7 Left bundle-branch block, unspecified; I48.91 Unspecified atrial fibrillation; Z79.4 Long term (current) use of insulin; Z79.899 Other long term (current) drug therapy; Z87.891 Personal history of nicotine dependence; Z95.0 Presence of cardiac pacemaker; Z90.710 Acquired absence of both cervix and uterus
CPT/HCPCS: 37226; 37230; 37232; 75630; 75774; 99152; 99153; C1725; C1760; C1769; C1876; C1887; C1894; J1644; J2250; J3010; Q9967

== ENCOUNTER → 2020-06-20 | Outpatient (CLI) | payer MEDICARE ==
[~2020-06-20] MED LIST changes: -ISOVUE-300 61% 50ML VIAL As Ordered ONE; -LIDOCAINE 1% MDV 20ML VIAL As Ordered ONE; -MIDAZOLAM INJ 2MG/2ML VIAL (J2250 PER 1MG) As Ordered ONE; -fentaNYL 100 MCG/2 ML INJECTION (J3010) As Ordered ONE
--- NOTE | 2020-06-20 09:39 | REP ---
INDICATION: ATHSCL CAHUILLA ARTERIS W/ CLAUDICATION. Status post common iliac artery stent and new right superficial femoral artery stents. COMPARISON: April 07, 2020.. TECHNIQUE: Bilateral lower extremity arterial Doppler ultrasound: FINDINGS: Ankle brachial indices are measured today at 0.90 on the right and 0.78 on the left. There is 20 mm of mercury discrepancy between the right and left brachial pressures, right higher. The distal aorta and the proximal most common iliac artery lumens are obscured by by bowel gas and patient body habitus. Patency is confirmed in the right common iliac artery stent with normal waveforms and velocities. 148 cm/S. In the right lower extremity, today's study shows patency stents from the proximal superficial femoral to just above the popliteal. The stent is patent across the right superficial femoral artery aneurysm which is again seen 2.0 x 1.7 cm. Improved flow in the anterior tibial and posterior tibial arteries is are seen on the right. Biphasic and triphasic waveforms throughout the right lower extremity. In the left lower extremity patent stents are noted proximal superficial femoral to just above the knee pot. Moderate intimal thickening and plaque is seen within the stent distally. A 3-1 velocities stenosis is seen with luminal narrowing in the popliteal artery on the left. Biphasic fairly good flow in the calf vessels are noted on the left. Right lower extremity arterial Doppler velocity chart: Right MARY stent velocity 148 cm/S Right EIA velocity 171 Right VENEER CLIPPER PSV 179 cm/S Profundal 125 Proximal SFA 150 Mid SFA 76 Distal S after a 42 Popliteal 51-1 12-128 Proximal DARRYL 67 Tibial-peroneal trunk 42 Proximal PUMP RUNNER 77 Distal PUMP RUNNER 62 Distal DARRYL 62 Left lower extremity arterial Doppler velocity chart: Left MARY PSV 148 cm/S Left EIA 125 Left VENEER CLIPPER PSV 160 cm/S Profundal 138 Proximal SFA 129 Mid SFA 55 Distal SFA 35 Popliteal 123 Proximal DARRYL 52 Tibial-peroneal trunk 57 Proximal PUMP RUNNER 36 Distal PUMP RUNNER 41 Distal DARRYL 58 IMPRESSION: Improve flow right lower extremity. Patent stents. Luminal narrowing and moderate stenosis left popliteal. <Electronically signed by Glenn Lopez > 06/20/20 [id number]
== END ==
LOC: M RAD 07:28
PROVIDERS: ATTEND Physician Assistant
DX: I70.213 Atherosclerosis of native arteries of extremities with intermittent claudication, bilateral legs (principal); Z95.820 Peripheral vascular angioplasty status with implants and grafts; Z87.891 Personal history of nicotine dependence

== ENCOUNTER → 2020-07-24 | Outpatient (CLI) | payer MEDICARE ==
[2020-07-24 07:14] LABS: HEMATOCRIT 36.2 % (36.0-47.0); HEMOGLOBIN 11.6 g/dl (12.0-15.5); MEAN CORPUSCULAR HEMOGLOBIN 30.1 pg (27.0-33.0); PLATELET COUNT, AUTOMATED 221 10^3/uL (150-450); RED BLOOD COUNT 3.85 10^6/uL (4.00-5.40)
[2020-07-24 07:50] LABS: ALBUMIN 3.4 GM/DL (3.2-5.2); BILIRUBIN,TOTAL 0.5 MG/DL (0.2-1.0); CALCIUM LEVEL 8.9 MG/DL (8.8-10.2); CHOLESTEROL RISK RATIO 5.387 (<5); CREATININE FOR GFR 1.14 MG/DL (0.55-1.30); GLOMERULAR FILTRATION RATE 50.8 (>45); TOTAL PROTEIN 6.6 GM/DL (6.4-8.2)
== END ==
LOC: M LAB 06:37
PROVIDERS: ATTEND Internal Medicine Cardiovascular Disease
DX: E78.5 Hyperlipidemia, unspecified (principal); I50.32 Chronic diastolic (congestive) heart failure

== ENCOUNTER → 2020-08-15 | Outpatient (CLI) | payer MEDICARE ==
--- NOTE | 2020-08-15 09:28 | REP ---
INDICATION: CAROTID OCCLUSION/STENOSIS, ATHEROSCLEROSIS, PAIN COMPARISON: None. TECHNIQUE: Real-time ultrasound evaluation and duplex Doppler interrogation of the extracranial carotid vasculature is performed. FINDINGS: Antegrade flow is observed in both vertebral arteries. Right carotid: The right common carotid artery shows diffuse intimal thickening but is otherwise unremarkable. There mild to moderate mixed plaquing in the right carotid bulb and proximal ICA on two-dimensional scanning. Color flow and spectral Doppler interrogation are unremarkable on the right. Velocity chart right carotid: Right CCA PSV: 73 cm/S Right ICA PSV: 84 cm/S Right ICA EDV: 36 cm/S Right ECA PSV: 70 cm/S Right ICA/CCA ratio: 1.16 Left carotid: The left common carotid artery shows diffuse intimal thickening but is otherwise unremarkable. There is mild to moderate mixed plaquing in the left carotid bulb and proximal ICA on two-dimensional scanning. Color flow and spectral Doppler interrogation are unremarkable on the left. Velocity chart left carotid: Left CCA PSV: 78 cm/S Left ICA PSV: 84 cm/S Left ICA EDV: 41 cm/S Left ECA PSV: 69 cm/S Left ICA/CCA ratio: 1.08 IMPRESSION: Less than 50% category narrowing in the right internal carotid artery by Doppler velocity criteria. Less than 50% category narrowing in the left ICA by Doppler velocity criteria. <Electronically signed by Glenn Lopez > 08/15/20 0915
--- NOTE | 2020-08-15 09:32 | REP ---
INDICATION: CAROTID OCCLUSION/STENOSIS, ATHEROSCLEROSIS, PAIN. Bilateral upper extremity arterial Doppler ultrasound requested. COMPARISON: None. TECHNIQUE: Bilateral upper extremity arterial Doppler ultrasound. FINDINGS: Triphasic and biphasic arterial Doppler waveforms are noted throughout the upper extremities bilaterally. There is a short segment occlusion of the distal right radial artery and the distal left ulnar artery with low velocity flow distal to these segments. Velocity chart right upper extremity arteries: Right subclavian artery PSV 109 cm/S Proximal axillary 95 Distal axillary 73 Proximal brachial 67 Distal brachial 45 Proximal ulnar 56 Mid ulnar 43 Distal ulnar 41 Proximal radial 79 Mid radial 17 Distal radial 11 Velocity chart left upper extremity arteries: Left subclavian artery PSV 107 cm/S Proximal axillary 95 Distal axillary 64 Proximal brachial 73 Distal brachial 72 Proximal ulnar 50 Mid ulnar 21 Distal ulnar 13 Proximal radial 58 Mid radial 59 Distal radial 50 IMPRESSION: Short segment occlusions noted in the distal right radial artery and the distal left ulnar artery as above. <Electronically signed by Glenn Lopez > 08/15/20 0929
== END ==
LOC: M RAD 07:40
PROVIDERS: ATTEND Physician Assistant
DX: I65.23 Occlusion and stenosis of bilateral carotid arteries (principal); I70.8 Atherosclerosis of other arteries; M79.602 Pain in left arm; M79.601 Pain in right arm; I50.42 Chronic combined systolic (congestive) and diastolic (congestive) heart failure

== ENCOUNTER → 2020-08-15 | Outpatient (CLI) | payer MEDICARE ==
[2020-08-15 08:59] LABS: ALBUMIN 3.4 GM/DL (3.2-5.2); CREATININE FOR GFR 1.55 MG/DL (0.55-1.30); GLOMERULAR FILTRATION RATE 35.6 (>45); MAGNESIUM LEVEL 2.1 MG/DL (1.8-2.4); PHOSPHORUS LEVEL 4.1 MG/DL (2.5-4.9); POTASSIUM SERUM 3.8 MEQ/L (3.5-5.1)
== END ==
LOC: M LAB 07:37
PROVIDERS: ATTEND Internal Medicine Cardiovascular Disease
DX: I50.42 Chronic combined systolic (congestive) and diastolic (congestive) heart failure (principal)

== ENCOUNTER → 2020-09-22 | Outpatient (CLI) | payer MEDICARE ==
[~2020-09-22] MED LIST changes: +LISI10TA22 PO; -LISI10TA4 PO
[2020-09-22 07:49] LABS: HEMATOCRIT 37.7 % (36.0-47.0); HEMOGLOBIN 12.5 g/dl (12.0-15.5); MEAN CORPUSCULAR HEMOGLOBIN 30.3 pg (27.0-33.0); MEAN CORPUSCULAR HGB CONC 33.2 g/dl (32.0-36.5); MEAN CORPUSCULAR VOLUME 91.5 fl (80.0-96.0); PLATELET COUNT, AUTOMATED 200 10^3/uL (150-450); RED BLOOD COUNT 4.12 10^6/uL (4.00-5.40); WHITE BLOOD COUNT 8.4 10^3/uL (4.0-10.0)
[2020-09-22 08:19] LABS: BLOOD UREA NITROGEN 18 MG/DL (7-18); CARBON DIOXIDE LEVEL 37 MEQ/L (21-32); CHLORIDE LEVEL 106 MEQ/L (98-107); CREATININE FOR GFR 1.33 MG/DL (0.55-1.30); GLOMERULAR FILTRATION RATE 42.5 (>45); GLUCOSE, FASTING 91 MG/DL (70-100); POTASSIUM SERUM 3.4 MEQ/L (3.5-5.1); SODIUM LEVEL 142 MEQ/L (136-145)
[2020-09-22 08:20] LABS: ALBUMIN 3.4 GM/DL (3.2-5.2); CALCIUM LEVEL 8.4 MG/DL (8.8-10.2); NT-PRO BNP 563 PG/ML (<125); PHOSPHORUS LEVEL 3.8 MG/DL (2.5-4.9)
== END ==
LOC: M LAB 07:25
PROVIDERS: ATTEND Internal Medicine Cardiovascular Disease
DX: D64.9 Anemia, unspecified (principal); I50.32 Chronic diastolic (congestive) heart failure; I48.0 Paroxysmal atrial fibrillation

== ENCOUNTER → 2020-10-06 | Outpatient (CLI) | payer MEDICARE ==
--- NOTE | 2020-10-06 09:19 | REP ---
INDICATION: CLAUDICATION COMPARISON: None. TECHNIQUE: Real time saeed scale and Duplex Doppler evaluation of the bilateral lower extremity arterial vasculature using linear high frequency transducer. FINDINGS: Saeed scale and duplex doppler images demonstrate limited evaluation of the iliac vessels due to body habitus and bowel gas. Distal abdominal aorta and right common iliac artery are not visualized. There are normal flow velocities in the left common iliac and bilateral external iliac arteries. MOISES right 0.93 and left 0.60. On the right there is a patent superficial femoral artery stent. There is mild stenosis of the proximal right SFA. There is decreased flow velocity noted at the mid SFA aneurysm. There is significant stenosis of the popliteal artery approximately 7-1. There are diffuse biphasic and triphasic waveforms. On the left there is occlusion of the superficial femoral artery stent proximally, with the occlusion extending through the distal aspect of the SFA. There is revascularization of the popliteal artery distal to the stent above the level of the knee. Triphasic waveforms seen in the common femoral artery. Monophasic waveforms are seen in the popliteal and calf arteries. Peak systolic velocities (cm/sec) Common iliac artery: Right not seen; left 119 External iliac artery: Right 120; left 108 Common femoral artery: Right 186; Left 140 Profunda femoris: Right 106; Left 161 SFA (proximal): Right 213; Left occluded SFA (mid): Right 54; Left occluded SFA (distal): Right 31; Left occluded Popliteal artery: Right 265; Left 20 DARRYL (prox.): Right 46; Left 21 Tibioperoneal trunk: Right 65; Left 25 QUALITY AUDIT REPRESENTATIVE (prox.): Right 63; Left 26 QUALITY AUDIT REPRESENTATIVE (distal): Right 70; Left 20 DARRYL (distal): Right 48; Left 16 IMPRESSION: Patent right SFA stent, mild stenosis proximal SFA. Significant stenosis right popliteal artery. Occlusion left superficial femoral artery stent, with revascularization popliteal artery distal to the stent. <Electronically signed by Harman Saeed > 10/06/20 [id number]
== END ==
LOC: M RAD 06:27
PROVIDERS: ATTEND Physician Assistant
DX: I70.213 Atherosclerosis of native arteries of extremities with intermittent claudication, bilateral legs (principal); I10 Essential (primary) hypertension

== ENCOUNTER → 2020-10-27 | Outpatient (CLI) | payer MEDICARE ==
[2020-10-27 09:59] LABS: ALBUMIN 3.2 GM/DL (3.2-5.2); CALCIUM LEVEL 8.6 MG/DL (8.8-10.2); CREATININE FOR GFR 1.61 MG/DL (0.55-1.30); GLOMERULAR FILTRATION RATE 34.1 (>45); MAGNESIUM LEVEL 2.4 MG/DL (1.8-2.4); PHOSPHORUS LEVEL 3.8 MG/DL (2.5-4.9); POTASSIUM SERUM 3.3 MEQ/L (3.5-5.1); THYROID STIMULATING HORMONE 2.45 uIU/ML (0.358-3.740)
== END ==
LOC: M LAB 07:05
PROVIDERS: ATTEND Internal Medicine Cardiovascular Disease
DX: I11.0 Hypertensive heart disease with heart failure (principal); I50.42 Chronic combined systolic (congestive) and diastolic (congestive) heart failure; I48.0 Paroxysmal atrial fibrillation

== ENCOUNTER → 2020-10-30 | Outpatient (CLI) | payer MEDICARE ==
--- NOTE | 2020-10-30 09:16 | REP ---
INDICATION: N20.0 KIDNEY STONE R31.9 HEMATURIA. COMPARISON: No comparison study.. TECHNIQUE: Urinary tract sonography. FINDINGS: Scanning at the level of the urinary bladder shows no abnormality. Bladder is not well filled.. Renal cortical echogenicity pattern is normal bilaterally and contours are smooth. There is no evidence hydronephrosis, mass, or calculus in either kidney sonographically. There are bilateral renal cortical cysts. In the right kidney, there is a 1.0 cm cyst at the upper pole, a 1.3 cm cyst in the periphery of the midpole, and 1.0 cm cyst at the lower pole. In the left kidney, there is a 1.9 cm upper pole cyst and a 1.3 cm lower pole cyst. No mass lesion is seen.. The right kidney measures 10.9 x 5.1 x 4.1 cm. Left renal dimensions are 12.2 x 5.8 x 4.6 cm. IMPRESSION: Bilateral renal cortical cysts. Otherwise negative urinary tract sonography.. <Electronically signed by Glenn Lopez > 10/30/20 0948
== END ==
LOC: M RAD 06:45
PROVIDERS: ATTEND Physician Assistant
DX: R31.9 Hematuria, unspecified (principal); N28.1 Cyst of kidney, acquired

== ENCOUNTER → 2020-11-05 | Outpatient (CLI) | payer MEDICARE ==
[2020-11-05 07:26] LABS: ALBUMIN 3.3 GM/DL (3.2-5.2); CALCIUM LEVEL 8.9 MG/DL (8.8-10.2); CREATININE FOR GFR 1.34 MG/DL (0.55-1.30); GLOMERULAR FILTRATION RATE 42.1 (>45); PHOSPHORUS LEVEL 3.8 MG/DL (2.5-4.9); POTASSIUM SERUM 3.3 MEQ/L (3.5-5.1)
== END ==
LOC: M LAB 05:59
PROVIDERS: ATTEND Internal Medicine Cardiovascular Disease
DX: I50.42 Chronic combined systolic (congestive) and diastolic (congestive) heart failure (principal)

== ENCOUNTER → 2020-11-07 | Outpatient (CLI) | payer MEDICARE ==
--- NOTE | 2020-11-07 09:22 | REP ---
INDICATION: EVAL GSV/LSV LE FOR BYPASS. COMPARISON: None. TECHNIQUE: Multiple ultrasonographic images of the deep venous structures of the bilateral thigh were obtained from the common femoral vein to the popliteal vein along with Doppler interrogation and color flow Doppler images. FINDINGS: There is no abnormal echogenic material seen within any of the visualized deep venous structures that would suggest acute thrombosis. Coaptation is unremarkable throughout. Doppler interrogation shows an expected response to respiratory variability and augmentation. The color flow images show what appears to be a normal vascular pattern throughout. Right: In mm: Anterior accessory greater saphenous vein origin 3.1, proximal thigh. 2.3 Greater saphenous vein junction 5.5, proximal thigh 2.6, midportion 2.6, distal 2.6, knee 2.3, proximal calf 1.3 Lesser saphenous vein popliteal fossa 2.7, proximal calf 2.6, midportion 2.0, distal 1.6 Left: In mm All dimensions correspond to the same location as the right in order: 4.8, 2.6, 5.4, 4.2, 2.8, 2.8, 3.1, 2.7, 2.4, 1.8, 1.2, 1.5 IMPRESSION: There is no ultrasonographic evidence of deep venous thrombosis involving any of the visualized deep venous structures of the bilateral thigh, as described above. Vein mapping as described above. <Electronically signed by Charly Salazar > 11/07/20 0919
== END ==
LOC: M RAD 07:48
PROVIDERS: ATTEND Surgery Vascular Surgery
DX: Z01.818 Encounter for other preprocedural examination (principal); I70.213 Atherosclerosis of native arteries of extremities with intermittent claudication, bilateral legs

== ENCOUNTER → 2020-11-17 | Outpatient (CLI) | payer MEDICARE ==
[~2020-11-17] MED LIST changes: +ENTR1TAB7 PO; +ISOVUE-300 61% 50ML VIAL As Ordered ONE; +LIDOCAINE 1% MDV 20ML VIAL As Ordered ONE; +MIDAZOLAM INJ 2MG/2ML VIAL (J2250 PER 1MG) As Ordered ONE; +fentaNYL 100 MCG/2 ML INJECTION (J3010) As Ordered ONE
--- NOTE | 2020-11-17 09:58 | ROOPDOC ---
[facility] Report Of Operation Report of Operation DATE OF PROCEDURE: 11/17/20 PREPROCEDURE DIAGNOSES: Atherosclerosis of the [place] arteries with in-stent stenosis right superficial femoral artery and claudication POSTPROCEDURE DIAGNOSES: Same PROCEDURE: 1. Ultrasound-guided access left common femoral artery 2. Aortoiliofemoral arteriogram 3. Selection right superficial femoral artery with right lower extremity runoff 4. Angioplasty right superficial femoral artery and proximal popliteal artery with 5 x 200 [place] balloon 5. Completion arteriogram right lower extremity 6. Mynx closure left common femoral artery SURGEON: Lior Ruiz MD ANESTHESIA: Local anesthesia 7 mL lidocaine. Moderate intravenous conscious sedation was supervised by Dr. Ruiz. The patient was independently monitored by a registered nurse assigned to the Department of radiology using automated blood pressure, EKG, and pulse oximetry. The detailed sedation record is permanently stored in the hospital information system. The following is a brief sedation record: Start time 07:56, stop time 08:26, Versed 1 mg IV, fentanyl 50 g IV, heparin 3000 units IV. CONTRAST: 34 mL Isovue-300 INDICATION FOR PROCEDURE: This is a very pleasant 65-year-old patient with atherosclerosis of the [place] arteries and findings on recent arterial duplex in the right lower extremity as suspected in-stent stenosis in the right SFA. Additionally, the patient has had increasing claudication in the right lower extremity. Risks benefits and alternatives to a right lower extremity arteriogram and intervention were explained to the patient and she is agreeable to proceed. Informed consent was obtained. INTERPRETATION: 1. The aortoiliofemoral segments bilaterally are widely patent. The iliac stents on the right are widely patent. No significant stenosis is noted in the common iliac arteries, hypogastric arteries, or external iliac arteries. 2. The right common femoral artery is widely patent although there is some mild stenosis distally towards the origin of the right superficial femoral artery. There is excellent flow into the right profunda and no significant stenosis is noted. The right superficial femoral artery has a stent present at the origin that has intimal hyperplasia with a 60% stenosis proximally. There are other in- stent stenoses ranging from 20-40% throughout, and then distally towards the end of the stents in the proximal popliteal artery there is also 50% stenoses from intimal hyperplasia. There is three-vessel tibial runoff to the foot, no significant tibial stenosis noted. 3. After angioplasty of the right superficial femoral artery stent and proximal popliteal artery with a 5 x 200 [place] balloon, there is widely patent inflow with less than 20% residual stenosis throughout. No dissection, embolization, extravasation noted. REPORT OF OPERATION: The patient was brought to the angiographic suite in stable condition. Her bilateral groins were prepped and draped in a sterile fashion. A timeout was performed. Sedation was administered without complication. Local anesthesia was administered to the skin and subcutaneous tissue over the left common femoral artery and a microneedle was used to access the artery under ultrasound guidance. A wire was passed through this access and the needle was removed. A 4 Mexican sheath was placed and flushed with saline. A Glidewire and flushing catheter were advanced into the distal aorta. Aortoiliofemoral arteriograms were performed, please interpretation above. We then went up and over the bifurcation with the catheter and the Glidewire and selected the right superficial femoral artery proximally. Right lower extremity runoff was performed, please interpretation above. We then advanced the Glidewire into the distal popliteal artery and exchange the sheath over the wire for a 6 x 45 cm destination sheath and flushed the sheath with saline. Heparin was administered and allowed to circulate. Following this, a 5 x 200 [place] balloon was advanced to the proximal popliteal artery and a three-minute inflations was performed, then we retracted the balloon to the origin of the SFA and a three-minute inflations was performed. Following this, there was widely patent inflow with less than 20% residual stenosis throughout the SFA. No extravasation emb olization dissection were noted. We exchange the sheath over the wire for a short 6 Mexican sheath, flushes sheath with saline, and a Mynx closure device was deployed with good hemostasis. Pressure was held for 10 minutes for good hemostasis and sterile dressings were applied. The patient was taken to recovery in stable condition. She tolerated the procedure and the sedation well. ESTIMATED BLOOD LOSS: Approximately 5 mL. COMPLICATIONS: None. PLAN: Okay to resume home diet and medications. Okay to resume eliquis tomorrow 11/18/2020. Follow-up in a week to check left groin access site, right leg perfusion, and discuss options for left femoropopliteal above-knee bypass. The patient's vein mapping has been reviewed, and she does not have suitable saphenous vein for bypass, thus we will perform the bypass with a PTFE graft. We will discuss this with her in clinic. We appreciate the opportunity to participate in the care of this patient. LIOR RUIZ MD November 17, 2020 09:58
[2020-11-17 11:20] VITALS: BP 135/61
== END ==
LOC: M IRPRO 06:11
PROVIDERS: ATTEND Surgery Vascular Surgery
DX: I70.211 Atherosclerosis of native arteries of extremities with intermittent claudication, right leg (principal); E11.51 Type 2 diabetes mellitus with diabetic peripheral angiopathy without gangrene; F17.218 Nicotine dependence, cigarettes, with other nicotine-induced disorders; G47.30 Sleep apnea, unspecified; I10 Essential (primary) hypertension; I48.91 Unspecified atrial fibrillation; J44.9 Chronic obstructive pulmonary disease, unspecified; K21.9 Gastro-esophageal reflux disease without esophagitis; Z79.01 Long term (current) use of anticoagulants; Z79.4 Long term (current) use of insulin; Z79.899 Other long term (current) drug therapy; Z88.8 Allergy status to other drugs, medicaments and biological substances; Z91.040 Latex allergy status

== ENCOUNTER → 2020-11-18 | Outpatient (CLI) | payer MEDICARE ==
[~2020-11-18] MED LIST changes: -ISOVUE-300 61% 50ML VIAL As Ordered ONE; -LIDOCAINE 1% MDV 20ML VIAL As Ordered ONE; -MIDAZOLAM INJ 2MG/2ML VIAL (J2250 PER 1MG) As Ordered ONE; -fentaNYL 100 MCG/2 ML INJECTION (J3010) As Ordered ONE
--- NOTE | 2020-11-18 12:05 | REP ---
INDICATION: LT LEG PAIN SWELLING ?DVT COMPARISON: None. 11/07/2020. TECHNIQUE: Real time compression and duplex Doppler interrogation of the left lower extremity deep venous system is performed. FINDINGS: The left common femoral, superficial femoral and popliteal veins are fully compressible with transducer pressure and demonstrate normal spontaneous and phasic flow, without evidence of deep venous thrombosis. IMPRESSION: No evidence of deep venous thrombosis of the left lower extremity femoral popliteal venous system. <Electronically signed by Harman Saeed > 11/18/20 1201
== END ==
LOC: M RAD 11:14
PROVIDERS: ATTEND Physician Assistant
DX: M79.604 Pain in right leg (principal); M79.605 Pain in left leg

== ENCOUNTER → 2020-12-19 | Outpatient (CLI) | payer MEDICARE ==
[~2020-12-19] MED LIST changes: +PACE200T; +POTA1TAB14; +SPIR-10; +VENTAER INH
== END ==
LOC: M LABSMTC 09:55
PROVIDERS: ATTEND Anesthesiology
DX: Z01.812 Encounter for preprocedural laboratory examination (principal); Z20.822 Contact with and (suspected) exposure to COVID-19

== ENCOUNTER 2020-12-24 07:49 | Inpatient (IN) | payer MEDICARE ==
--- NOTE | 2020-12-05 13:46 | HPEPDOC ---
[facility] [place] Medical History & Physical Date of Admission Dec 24, 2020 Date of Service: Dec 24, 2020 History and Physical Vascular surgery. Dr. Ruiz HISTORY OF PRESENT ILLNESS: The patient is a 65-year-old female with known severe atherosclerosis in the [place] arteries status post multiple interventions in the left lower extremity by another provider in the past. The patient has thrombosis of a left SFA stent, chronic and Dr. Ruiz has discussed the risks benefits and alternatives to a left lower extremity femoral to above-knee popliteal bypass. Unfortunately, patient does not have suitable greater saphenous vein for bypass, so plan is to proceed with a left femoral endarterec kindra, left femoral to above-knee popliteal artery bypass with PTFE graft. After extensive counseling the patient is agreeable to proceed. Informed consent was obtained. Dr. Ruiz has extensively counselled her that she is high risk for poor incision healing due to obesity. The patient is advised to hold the eliquis the day before and the day of the procedure. PAST MEDICAL HISTORY: COPD Sciatica Sleep Apnea Hypertension Gastroesophageal Reflux Disease Ruptured Intestine - 17-18 Years ago Insulin Dependent Diabetes Left Bundle Branch Block Atrial Fibrillation CAD -Dr Briseno PAST SURGICAL HISTORY: Pacemaker Implant - (10/2018) Section - X 2 Cholecystectomy Knee Surgery - Lt Breast Reduction Shoulder Surgery Incisional Hernia Repair - 2010 Ventral Hernia Repair - 2005 EGD&Colonoscopy - 11/2010 Cardiac catheterization Hysterectomy Carpal Tunnel Release - X 2 Loop recorder Implant - 07/2016 AND REMOVAL OF IMPLANT 03/2017 Colon Resection - X2 Right Leg Angio - 05/18/18; 11/29/18; 05/14/2020; 11/17/2020 EGD With Dilation - 09/03 SOCIAL HISTORY: Former smoker FAMILY HISTORY: Hypertension, CAD, CHF, CAD, DM ALLERGIES: Please see below. REVIEW OF SYSTEMS: Const: Denies chills, fever, weight gain and weight loss. Eyes: No vision changes ENMT: Denies hearing loss. Denies congestion. Denies dysphagia. CV: Reports atrial fibrillation, CAD, hypercholesterolemia and hypertension, but denies chest pain and palpitations. Resp: Reports COPD and sleep apnea, but denies cough, hemoptysis and shortness of breath. GI: Reports GERD and heartburn, but denies abdominal pain, constipation, diarrhea, nausea and vomiting. Musculo: Reports intermittent claudication, but denies myalgia, pain and trouble walking. Skin: Denies skin cancer, rash and wound. Neuro: Denies focal deficit, headache and seizures. Psych: Reports anxiety, but denies depression. Endocrine: Reports diabetes but denies hyperthyroidism and hypothyroidism. [place]/Lymph: Denies anemia and excessive bruising. HOME MEDICATIONS: Please see below. PHYSICAL EXAMINATION: Const: Appears medically stable. No signs of apparent distress present. Head/Face: Normal on inspection. ENMT: Tympanic membranes: intact. External nose WNL. Neck: Supple, no carotid bruits present Resp: No wheezing. Slightly coarse breath sounds bilaterally. CV: Rate is regular. Rhythm is regular. Abdomen: Bowel sounds are positive. Abdomen is soft, nontender, and nondist ended. Lymph: No palpable or visible regional lymphadenopathy. Musculo:Gait steady, distal fusion right lower extremity with good Doppler signals strong at the DP and PT, monophasic DP and PT signals in the left lower extremity. Both feet warm and well perfused. Capillary refill intact. Mild swelling noted in the lower extremities. No ulcers or wounds are present. Skin:No rashes or lesions Neuro:Alert and oriented x3, moves all extremities equally, no focal neurologic deficits noted. Psych: Pleasant and cooperative LABORATORY DATA: See below. ASSESSMENT/PLAN: The patient is a 65-year-old female with atherosclerosis in the [place] arteries and lifestyle limiting claudication of the left lower extremity without options for endovascular revascularization. Plan as discussed with Dr. Ruiz is for left lower extremity femoral endarterectomy and femoral to above-knee popliteal bypass with PTFE graft. Informed consent has been obtained and is placed with the chart. Transfusion consent has been obtained and is placed with the chart. Patient is advised to hold eliquis the day before and the day of the procedure. Continue statin Cardiology and medical clearance has been requested. NPO IV fluids per anesthesia Admission labs to include CBC, BMP, INR, PTT, type and screen. Ancef 2 g IV preoperatively. BMI 34.7. Complicates care Vital Signs Admission vital signs pending Laboratory Data Labs 24H Admission labs pending Home Medications Scheduled Apixaban (Eliquis) 5 Mg Tablet, 5 MG PO BID Atorvastatin Calcium (Atorvastatin Calcium) 80 Mg Tablet, 80 MG PO QHS Carvedilol (Carvedilol) 12.5 Mg Tablet, 12.5 MG PO BID Dulaglutide (Trulicity) 1.5 Mg/0.5 Ml Pen.injctr, 1.5 MG SC Q7D Insulin Glargine,Hum.rec.anlog (Poolmarilyn Erinngiuliana) 300 Unit/Ml Inj, 85 UNIT SC DAILY Pantoprazole Sodium (Protonix) 40 Mg Tab, 40 MG PO BID Sacubitril/Valsartan (Entresto 49 mg-51 mg Tablet) 1 Each Tablet, 1 TAB PO BID Scheduled PRN Famotidine (Pepcid) 40 Mg Tablet, 40 MG PO DAILY PRN for HEARTBURN Furosemide (Furosemide) 40 Mg Tablet, 40 MG PO DAILY PRN for FLUID RETENTION TAKES IF WEIGHT GAIN OF >2LBS Ondansetron (Ondansetron Odt) 4 Mg Tab.rapdis, 4 MG PO Q4HP PRN for nausea/vomiting Allergies Coded Allergies: dapagliflozin (Unverified Allergy, Unknown, UNKNOWN REACTION, 12/28/18) latex (Unverified Allergy, Unknown, risk, 11/01/18) pravastatin (Unverified Allergy, Unknown, unknown, 11/01/18) diphenhydramine (Unverified Adverse Reaction, Unknown, agitation, 11/01/18) metformin (Unverified Adverse Reaction, Unknown, diarrhea, 11/01/18) prednisone (Unverified Adverse Reaction, Unknown, elevated BS, 11/01/18) A-FIB/CHADSVASC A-FIB History Current/History of A-Fib/PAF?: Yes Current PO Anticoag Therapy: Yes Dasha Cristobal December 05, 2020 13:46
[~2020-12-24] VITALS: Ht 165.1 cm; Wt 95.7 kg
[~2020-12-24 07:49] MED LIST changes: +LR 1,000 ML IV ONE; -PACE200T; +PACE200T PO; +ceFAZolin SOD 2 GM in IV 1 EA IV ONE
[2020-12-24] MEDS ORDERED: MIDAZOLAM INJ 2MG/2ML VIAL (J2250 PER 1MG) As Ordered ONE (07:54)
[2020-12-24] MEDS ORDERED: ONDANSETRON 4MG/2ML VIAL As Ordered ONE (07:55)
[2020-12-24] MEDS ORDERED: ROCURONIUM BROMIDE 50 MG/5 ML VIAL As Ordered ONE ×3 (07:55→12:43)
[2020-12-24] MEDS ORDERED: propofoL 200 MG/20 ML VIAL As Ordered ONE (07:55)
[2020-12-24] MEDS ORDERED: LIDOCAINE 2% 100MG/5ML SDV (FOR ANES.) As Ordered ONE (07:55)
[2020-12-24] MEDS ORDERED: dexameTHASONE 4 MG/ML 1ML VIAL (J1100 PER 1MG) As Ordered ONE (07:55)
[2020-12-24] MEDS ORDERED: ePHEDrine SULFATE 25 MG/5 ML(5MG/ML) SYRINGE As Ordered ONE (07:55)
[2020-12-24] MEDS ORDERED: SUGAMMADEX SODIUM 500 MG/5 ML VIAL (BRIDION) As Ordered ONE (07:55)
[2020-12-24] MEDS ORDERED: fentaNYL 100 MCG/2 ML INJECTION (J3010) As Ordered ONE (07:55)
[2020-12-24] MEDS ORDERED: PHENYLephrine 500MCG 5ML (100MCG/ML) SYRINGE As Ordered ONE (07:55)
[2020-12-24] MEDS ORDERED: PHENYLEPHRINE 10MG/ML 1ML VIAL (J2370 PER 1) As Ordered ONE (08:02)
[2020-12-24 08:34] LABS: HEMATOCRIT 38.7 % (36.0-47.0); HEMOGLOBIN 12.7 g/dl (12.0-15.5); MEAN CORPUSCULAR HEMOGLOBIN 31.2 pg (27.0-33.0); MEAN CORPUSCULAR HGB CONC 32.8 g/dl (32.0-36.5); MEAN CORPUSCULAR VOLUME 95.1 fl (80.0-96.0); PLATELET COUNT, AUTOMATED 192 10^3/uL (150-450); RED BLOOD COUNT 4.07 10^6/uL (4.00-5.40); WHITE BLOOD COUNT 7.6 10^3/uL (4.0-10.0)
[2020-12-24 08:49] LABS: INR 1.07; PARTIAL THROMBOPLASTIN TIME 25.9 SECONDS (24.2-38.5); PROTHROMBIN TIME 14.1 SECONDS (12.5-14.3)
[2020-12-24 09:01] LABS: CALCIUM LEVEL 9.2 MG/DL (8.8-10.2); CREATININE FOR GFR 1.46 MG/DL (0.55-1.30); GLOMERULAR FILTRATION RATE 38.2 (>45); POTASSIUM SERUM 3.8 MEQ/L (3.5-5.1)
[2020-12-24] MEDS ORDERED: THROMBIN SOLN 20,000 UNITS KIT As Ordered ONE (09:01)
[2020-12-24] MEDS ORDERED: HEPARIN SOD (PORCINE) 5000UNITS/ML 1ML VIAL/SYRINGE As Ordered ONE ×2 (09:01→12:04)
[2020-12-24] MEDS ORDERED: BUPIVACAINE/EPIN 0.5% 30 ML VIAL As Ordered ONE (09:01)
[2020-12-24] MEDS ORDERED: ceFAZolin 1GM VIAL (J0690 PER 500MG) As Ordered ONE (10:51)
[2020-12-24] MEDS ORDERED: ceFAZolin 2 GM/D5W 50 ML IV BAG (J0690 PER 500MG) As Ordered ONE (13:52)
[2020-12-24] MEDS ORDERED: PERCOCET 5MG/325MG TAB PO PRN (15:15)
[2020-12-24] MEDS ORDERED: HYDROmorphone 2 MG TAB PO PRN (15:15)
--- NOTE | 2020-12-24 15:15 | ROOPDOC ---
[facility] Report Of Operation Report of Operation DATE OF PROCEDURE: 12/24/20 PREPROCEDURE DIAGNOSES: Atherosclerosis of the [place] arteries with a lifestyle limiting claudication left lower extremity POSTPROCEDURE DIAGNOSES: Same PROCEDURE: 1. Left femoral endarterectomy with Xenosure patch angioplasty 2. Left femoral to above-knee popliteal bypass with PTFE SURGEON: Lior Ruiz MD ANESTHESIA: Gen. anesthesia and local anesthesia INDICATION FOR PROCEDURE: This is a very pleasant 65-year-old patient with long- standing severe atherosclerosis in the [place] arteries, history of tobacco abuse, morbid obesity who has had multiple failed endovascular interventions in the left superficial femoral artery by a prior provider. She subsequently has developed worsening left lower extremity claudication and occlusion of her superficial femoral artery over many months. I discussed with the patient that I did not think a long-term occlusion of her superficial femoral artery stents wo uld likely be amenable to endovascular revascularization, due to the fact that TPA thrombolysis is generally not successful in chronic thrombus. Also, since the patient has had so many failed endovascular revascularizations, I think it is time that we consider open revascularization. We had a long discussion about this and the patient was extensively counseled about the risks benefits and alternatives to a left femoral endarterectomy and left femoral to above-knee popliteal bypass. After a long discussion and all questions were answered and informed consent was obtained. REPORT OF OPERATION: Patient was brought to the operating room in stable condition. Enteral anesthesia and antibiotics were administered without complication. Her left groin and left lower extremity were prepped and draped in sterile fashion. Ioban was placed over the skin. A timeout was performed. An oblique incision was made over the left inguinal ligament and carried down through the subcutaneous tissues with Bovie cautery. Bridging veins were suture ligated and divided. We continued the dissection down to the femoral sheath along the inferior border of the inguinal ligament. The femoral sheath was opened longitudinally and the femoral vessels were skeletonized proximally and distally. Vesseloops replaced around circumflex vessels, the SFA, and the profunda. Next, we made a longitudinal incision over the medial aspect of the lower thigh at the knee. This was carried down to the subcutaneous tissue with Bovie cautery. The saphenous vein was preserved. We continued her dissection down through the fascia and the muscle was retracted posteriorly. We had copious adipose tissue to navigate through, but we did identify the popliteal artery and vein. The popliteal artery was skeletonized proximally and distally. We want as distal as possible in order to avoid the distal SFA stent. Vesseloops was placed all around the proximal and distal popliteal artery as well as a large branch medially. Multiple collateral vessels joined the popliteal artery disease. These were preserved and gently controlled with clips. The clips were removed at the end of the case. We then returned to the femoral vessel. Heparin was given by anesthesia and allowed to circulate. A clamp was placed proximal to the circumflex vessels in the Vesseloops were secured. An arteriotomy was made. Copious amounts of intimal hyperplasia as well as posterior wall plaque or carefully elevated from the vessel. We transected this proximally after removing the bulk of the plaque to create good end point. Distally, we were able to get a good end point in the profunda, but the SFA stented proximally and we trimmed the plaque at this level. The SFA is chronically occluded at its origin within the stent. We then removed all loose debris and intima and irrigated with heparinized saline. Following the endarterectomy, using a xenosure patch was used to close the arteriotomy in a running fashion with 5-0 Prolene hemostatic suture. Before the final sutures are placed, we flushed the inflow and outflow arteries irrigated with heparinized saline. We then placed the final sutures and restart flow. Good hemostasis was noted. A tunneler was used to tunnel a 6 mm ringed PTFE graft from the knee to the groin incision within the subcutaneous tissues. The proximal aspect was then cut on a long bevel. Additional heparin was given by anesthesia. We replaced the clamp and the Vesseloops were resec ured. An arteriotomy was made in the patch and the PTFE graft was anastomosed and an end-to-side fashion with hemostatic 5-0 Prolene suture. Before the final sutures were placed, we flushed the inflow and outflow arteries, clamp was placed on the graft, good hemostasis was noted. We irrigated with heparinized saline in the final sutures were placed. Flow was restored. We then flushed the distal end of the graft with heparinized saline. It was cut to the appropriate length on a bevel for a tension-free anastomosis. The Vesseloops popliteal artery. There is a great deal of intimal hyperplasia in this area just distal to the stent, which we carefully removed to good end point distally. We then anastomosed the graft and end-to-side fashion to the popliteal artery with 5-0 Prolene hemostatic suture. Before the final sutures were placed, we flushed the inflow and outflow artery and flushed through the graft and a saline. The final sutures are placed and flow was restored. Good hemostasis was noted. We then irrigated both incisions copiously with normal saline. Or confirm there was excellent flow in the common femoral artery, profunda, rapid, and a try for her served on the popliteal artery. The foot was warm and well-perfused and had up palpable dorsal pedis pulse, and a dopplerable posterior tibial signal. We then irrigated both incisions with saline again. The popliteal incision was closed by approximating the deep tissues with [id number] Vicryl suture. The fascia was closed with running 2-0 Vicryl suture. The deep dermal layer was approximated with interrupted 4-0 Vicryl suture. A few nylon mattress sutures were placed at the skin and the skin was then closed with robyn. At the groin, the femoral sheath was closed with running 2-0 Vicryl suture. The fascia was closed in 4 layers with running 2-0 Vicryl suture. The deep dermal layer was approximated with interrupted 3-0 Vicryl sutures. Nylon mattress sutures were placed sparingly at the skin and then robyn were used to close the skin. Both incisions were clean and dry. 4 x 4's and Tegaderms were placed at the final dressing. The patient was then allowed to awaken and taken to recovery in stable condition. She tolerated the procedure well. ESTIMATED BLOOD LOSS: Approximately 50 mL. COMPLICATIONS: None. PLAN: We will admit the patient to the hospitalist service, [facility]. We will discontinue the Torres in the morning. She will be on bed rest overnight, but activity as tolerated in the morning, but no strenuous exercise or lifting greater than 5 pounds until incision in the groin is completely healed. We'll be okay to ambulate, go up and down stairs, and do light activity. The patient will need very careful wound care, high protein diet, and close monitoring in order to heal her incisions. Her morbid obesity makes her high risk for difficulty healing, so we will be very vigilant with her incisions. We will restart her eliquis and she will need to stay on this long-term for bypass patency. We appreciate the opportunity to participate in the care of this patient. LIOR RUIZ MD Dec 24, 2020 15:15
[2020-12-24] MEDS ORDERED: oxyCODONE 5MG TAB PO PRN (15:25)
[2020-12-24] MEDS ORDERED: ONDANSETRON 4MG/2ML VIAL IV PRN (15:25)
[2020-12-24] MEDS ORDERED: LR 1,000 ML IV SCH (15:25)
[2020-12-24] MEDS ORDERED: PILL CUTTER 1 EACH XX PRN (15:30)
[2020-12-24] MEDS: fentaNYL 100 MCG/2 ML INJECTION (J3010) IV PRN ×2 (15:52→16:04)
[2020-12-24] MEDS ORDERED: GLUCAGON INJ 1MG VIAL SC PRN (16:00)
[2020-12-24] MEDS ORDERED: FUROSEMIDE 40 MG TAB PO PRN (16:00)
[2020-12-24] MEDS ORDERED: FAMOTIDINE 20 MG TAB PO PRN (16:00)
[2020-12-24] MEDS ORDERED: GLUCOSE 4GM CHEW TABLET PO PRN (16:00)
[2020-12-24] MEDS ORDERED: DEXTROSE 50% 50 ML SYRINGE IV PRN (16:00)
[2020-12-24] MEDS ORDERED: ALBUTEROL 90 MCG/ACT 8GM HFA INHALER INH PRN (16:00)
[2020-12-24] MEDS ORDERED: ASPIRIN 81 MG CHEW TABLET PO ONE (16:15)
--- NOTE | 2020-12-24 16:16 | HPEPDOC ---
General Date of Admission Dec 24, 2020 at 07:49 Date of Service: Dec 24, 2020 Chief Complaint The patient is a 65-year-old female admitted with a reason for visit of Atherosclerosis [place] [facility]ies With Jerman.... Source: Patient Exam Limitations: No limitations History of Present Illness Patient is 65 years old female with past history of COPD, hypertension, type 2 diabetes, atrial fibrillation, coronary artery diseases presented to hospital for elective Left femoral endarterectomy with Xenosure patch angioplasty and Left femoral to above-knee popliteal bypass with PTFE . Procedure was done today, blood loss was minimal. When I saw patient in the PACU, she was resting comfortably on the bed, denied any chest pain, palpitations, fever or chills. Vital signs pertinent for elevated blood pressure 167/90. Home Medications Scheduled Amiodarone Hcl (Pacerone) 200 Mg Tablet, DAILY, (Reported) Apixaban (Eliquis) 5 Mg Tablet, 5 MG PO BID, (Reported) Atorvastatin Calcium (Atorvastatin Calcium) 80 Mg Tablet, 80 MG PO QHS, (Reported) Carvedilol (Carvedilol) 12.5 Mg Tablet, 12.5 MG PO BID, (Reported) Dulaglutide (Trulicity) 1.5 Mg/0.5 Ml Pen.injctr, 1.5 MG SC Q7D, (Reported) Insulin Glargine,Hum.rec.anlog ([place] Solostar) 300 Unit/1 Ml Insuln.pen, 85 UNIT SC DAILY, (Reported) Pantoprazole Sodium (Protonix) 40 Mg Tab, 40 MG PO BID, (Reported) Potassium Chloride (Potassium Chloride) 20 Meq Tablet.er, BID, (Reported) Sacubitril/Valsartan (Entresto 49 mg-51 mg Tablet) 1 Each Tablet, 1 TAB PO BID, (Reported) Spironolactone (Spironolactone) 25 Mg Tablet, 12.5 MG DAILY, (Reported) Scheduled PRN Albuterol Sulfate (Ventolin Hfa) 18 Gm Hfa.aer.ad, 2 PUFFS INH QID PRN for D YSPNEA, (Reported) Famotidine (Pepcid) 40 Mg Tablet, 40 MG PO DAILY PRN for HEARTBURN, (Reported) Furosemide (Furosemide) 40 Mg Tablet, 20 MG PO DAILY PRN for FLUID RETENTION, (Reported) TAKES IF WEIGHT GAIN OF >2LBS Ondansetron (Ondansetron Odt) 4 Mg Tab.rapdis, 4 MG PO Q4HP PRN for nausea/vomiting, (Reported) Allergies Coded Allergies: latex (Unverified Allergy, Intermediate, eyes irritated, 12/10/20) dapagliflozin (Unverified Allergy, Unknown, UNKNOWN REACTION, 12/10/20) pravastatin (Unverified Allergy, Unknown, unknown, 12/10/20) diphenhydramine (Unverified Adverse Reaction, Intermediate, agitation, 12/23/20) prednisone (Unverified Adverse Reaction, Intermediate, elevated blood glucose, 12/10/20) metformin (Verified Adverse Reaction, Mild, diarrhea, 12/23/20) Past Medical History Medical History COPD Sciatica Sleep Apnea Hypertension Gastroesophageal Reflux Disease Ruptured Intestine - 17-18 Years ago Insulin Dependent Diabetes Left Bundle Branch Block Atrial Fibrillation CAD -Dr Briseno Surgical History Pacemaker Implant - (10/2018) Section - X 2 Cholecystectomy Knee Surgery - Lt Breast Reduction Shoulder Surgery Incisional Hernia Repair - 2010 Ventral Hernia Repair - 2005 EGD&Colonoscopy - 11/2010 Cardiac catheterization Hysterectomy Carpal Tunnel Release - X 2 Loop recorder Implant - 07/2016 AND REMOVAL OF IMPLANT 03/2017 Colon Resection - X2 Right Leg Angio - 05/18/18; 11/29/18; 05/14/2020; 11/17/2020 EGD With Dilation - 09/03 Family History FATHER: , DIAGNOSED WITH HYPERTENSION, HEART DISEASE MOTHER: , DIAGNOSED WITH HYPERTENSION, STROKE SON(S): ALIVE, DIAGNOSED WITH DIABETES 1 BROTHER(S) , 2 SISTER(S) . 2 SON(S) . NO FAMILY HISTORY OF ANY UROLIGICAL DISEASES OR CANCERSBROTHER PASSED - HEART DISEASE, ANEURYSM (?)SISTER PASSED - NON SMALL CELL CARCINOMAOTHER SISTER - ALIVE, HEART DISEASE, DM II. SOCIAL HISTORY Social History * Smoker: former Smoker Alcohol: Denies Drugs: denies A-FIB/CHADSVASC A-FIB History Current/History of A-Fib/PAF?: Yes Current PO Anticoag Therapy: Yes Review of Systems Constitutional: Denies: Chills, Fever Eyes: Denies: Pain ENT: Denies: Head Aches Skin: Denies: Lesions Pulmonary: Denies: Dyspnea Cardiovascular: Denies: Chest Pain, Palpitations Gastrointestinal: Denies: Nausea Genitourinary: Denies: Dysuria Endocrine: Denies: Polydipsia, Polyphagia Musculoskeletal: Denies: Neck Pain Neurological: Denies: Weakness Psych: Reports: Mood Normal Physical Examination General Exam: Positive: Alert, Cooperative Eye Exam: Positive: PERRLA ENT Exam: Positive: Atraumatic, Mucous membr. moist/pink Neck Exam: Positive: Supple; Negative: JVD Chest Exam: Positive: Clear to auscultation Heart Exam: Positive: Rate Normal, Irregular Rhythm Telemetry: Positive: Atrial fibrillation Abdomen Exam: Positive: Normal bowel sounds Extremity Exam: Negative: Clubbing Skin Exam: Positive: Nl turgor and temperature Neuro Exam: Positive: Cranial Nerves 3-12 NL Psych Exam: Positive: Mental status NL Vital Signs Vital Signs Date Time Temp Pulse Resp B/P (MAP) Pulse Ox O2 Delivery O2 Flow Rate FiO2 12/24/20 16:04 97.2 69 18 166/82 98 Nasal Cannula 2.0 Laboratory Data Labs 24H Laboratory Tests 2 12/24/20 08:18: Nucleated Red Blood Cells % (auto) 0.0, Prothrombin Time 14.1H, Prothromb Time International Ratio 1.07, Activated Partial Thromboplast Time 25.9, Anion Gap 5L, Glomerular Filtration Rate 38.2L, Calcium Level 9.2 12/24/20 08:44: Bedside Glucose (Misc Panel) 90 CBC/BMP Laboratory Tests 12/24/20 08:18 Assessment/Plan Patient is 65 years old female with past history of COPD, hypertension, type 2 diabetes, atrial fibrillation, coronary artery diseases presented to hospital for elective Left femoral endarterectomy with Xenosure patch angioplasty and Left femoral to above-knee popliteal bypass with PTFE . Procedure was done today, blood loss was minimal. When I saw patient in the PACU, she was resting comfortably on the bed, denied any chest pain, palpitations, fever or chills. Vital signs pertinent for elevated blood pressure 167/90. Problems (1) Status post femoral-popliteal bypass surgery Status: Acute Problem Text: Vascular surgeon follows her Pain management Aspirin 81 mg started Eliquis on hold (2) Hypertension Problem Text: Continue home meds (3) CHF (congestive heart failure) Status: Chronic Problem Text: Continue home meds (4) Persistent atrial fibrillation Status: Chronic Problem Text: Heart rate under control Anticoagulation with Eliquis on hold (5) Diabetes mellitus Status: Chronic Problem Text: Insulin sliding scale Detemir twice a day Diabetes diet Plan / VTE VTE Prophylaxis Ordered?: Yes GEORGIA MACEDO DO Dec 24, 2020 16:16
[2020-12-24] MEDS: HumaLOG INSULIN (NovoLOG) PER UNIT SC SCH ×2 (18:06→21:00)
[2020-12-24] MEDS: AMIODARONE 200 MG TAB (PACERONE) PO SCH (21:00)
[2020-12-24] MEDS: ATORVASTATIN 20 MG TAB PO SCH (21:00)
[2020-12-24] MEDS: PANTOPRAZOLE 40MG TAB (PROTONIX) PO SCH (21:00)
[2020-12-24] MEDS: CARVedilol 12.5 MG TAB PO SCH (21:49)
[2020-12-24] MEDS: ENTRESTO 49-51MG TABLET (SACUBITRIL/VALSARTAN) PO SCH (21:49)
[2020-12-24] MEDS: LEVEMIR (INSULIN DETEMIR) 1 UNITS/0.01ML SC SCH (21:49)
[2020-12-24] MEDS: HEPARIN SOD (PORCINE) 5000UNITS/ML 1ML VIAL/SYRINGE SQ SCH (21:50)
[2020-12-24 22:00] VITALS: BP 133/78
[2020-12-25 02:00] VITALS: BP 139/76
[2020-12-25 06:00] VITALS: BP 138/74
--- NOTE | 2020-12-25 07:47 | IPNPDOC ---
Date Seen The patient was seen on 12/25/20. Progress Note Patient seen and examined postop day 1 status post left femoral endarterectomy and left femoral to above-knee popliteal bypass with PTFE graft. She is doing very well today. Pain is well controlled. Tolerating a diet. Her Torres came out this morning. She has not yet been out of bed. On exam, her left groin incision and left medial thigh incision are clean dry and intact with robyn and sutures intact. These were thoroughly cleaned and redressed with dry gauze and paper tape. A pillowcase was placed in the groin folds prevent moisture buildup. She has a triphasic signal at the profunda, triphasic signal over the bypass, and palpable dorsal pedis pulse with biphasic signal at the posterior tibial artery. Her foot is warm and well-perfused. Sensory and motor intact. Our plan is for the patient to slowly increase her activity over the next few days. She may need PT OT, but we will see how she does with nurse assist. We will restart her eliquis today to improve long-term bypass patency. We will continue to encourage tight glucose control high-protein diet to assist with wound healing. Patient is high risk for poor healing of her incisions due to morbid obesity and diabetes. It is okay for the patient to shower with her dressings off, we would like Hibiclens to be used for her showers. Following shower, or place dry gauze and paper tape over incisions. When patient is at rest, we would like to keep a pillowcase in the groin folds to prevent moisture buildup. We will see how she does over the next few days and anticipate discharge likely Tuesday. We will order the patient Chloraseptic [place] as she is complaining of a mild sore throat following surgery. We appreciate the ospitalist's excellent care of this patient. VS, I&O, 24H, Fishbone Vital Signs/I&O Vital Signs Date Time Temp Pulse Resp B/P (MAP) Pulse Ox O2 Delivery O2 Flow Rate FiO2 12/25/20 06:00 97.4 71 18 138/74 (95) 99 Nasal Cannula 2.0 I&O- Last 24 Hours up to 6 AM 12/25/20 06:00 Intake Total 3720 ml Output Total 1425 ml Balance 2295 ml Laboratory Data 24H LABS Laboratory Tests 2 12/24/20 08:18: Nucleated Red Blood Cells % (auto) 0.0, Prothrombin Time 14.1H, Prothromb Time International Ratio 1.07, Activated Partial Thromboplast Time 25.9, Anion Gap 5L, Glomerular Filtration Rate 38.2L, Calcium Level 9.2 12/24/20 08:44: Bedside Glucose (Misc Panel) 90 12/24/20 17:31: Bedside Glucose (Misc Panel) 150H 12/24/20 20:02: Bedside Glucose (Misc Panel) 147H 12/25/20 07:23: Bedside Glucose (Misc Panel) 160H CBC/BMP Laboratory Tests 12/24/20 08:18 LIOR GALVAN MD Dec 25, 2020 07:47
[2020-12-25] MEDS ORDERED: CHLORASEPTIC SPRAY MT PRN (09:30)
[2020-12-25] MEDS: LEVEMIR (INSULIN DETEMIR) 1 UNITS/0.01ML SC SCH ×2 (09:48→21:00)
[2020-12-25] MEDS: HumaLOG INSULIN (NovoLOG) PER UNIT SC SCH ×4 (09:48→21:00)
[2020-12-25] MEDS: FUROSEMIDE 40 MG TAB PO SCH (09:49)
[2020-12-25] MEDS: ASPIRIN 81 MG CHEW TABLET PO SCH (09:50)
[2020-12-25] MEDS: CARVedilol 12.5 MG TAB PO SCH ×2 (09:50→21:14)
[2020-12-25] MEDS: ENTRESTO 49-51MG TABLET (SACUBITRIL/VALSARTAN) PO SCH ×2 (09:50→21:12)
[2020-12-25] MEDS: AMIODARONE 200 MG TAB (PACERONE) PO SCH ×2 (09:50→21:14)
[2020-12-25] MEDS: PANTOPRAZOLE 40MG TAB (PROTONIX) PO SCH ×2 (09:50→21:00)
[2020-12-25 09:51] VITALS: BP 130/69
[2020-12-25] MEDS: HEPARIN SOD (PORCINE) 5000UNITS/ML 1ML VIAL/SYRINGE SQ SCH ×2 (09:51→21:12)
[2020-12-25 14:00] VITALS: BP 129/54
--- NOTE | 2020-12-25 15:50 | IPNPDOC ---
Text Note Date of Service The patient was seen on 12/25/20. NOTE Subjective: No any acute events overnight. Patient denies fever, chills, nausea, diarrhea or dysuria Objective: GENERAL APPEARANCE: NAD HEENT: no scleral icterus, no JVD, EOMI CARDIOVASCULAR: Irregularly irregular LUNGS: CTA ABDOMEN: soft & not tender w palpitation MUSCULOSKELETAL: no cyanosis, no swelling INTEGUMENT: no generalized pallor NEUROLOGICAL: cranial nerve function from 2-12 intact intact, follows commands, speech not dysarthric Assessment/Plan Patient is 65 years old female with past history of COPD, hypertension, type 2 diabetes, atrial fibrillation, coronary artery diseases presented to hospital for elective Left femoral endarterectomy with Xenosure patch angioplasty and Left femoral to above-knee popliteal bypass with PTFE . Procedure was done today, blood loss was minimal. When I saw patient in the PACU, she was resting comfortably on the bed, denied any chest pain, palpitations, fever or chills. Vital signs pertinent for elevated blood pressure 167/90. Problems (1) Status post femoral-popliteal bypass surgery Vascular surgeon follows her Pain management Aspirin 81 mg started Started Eliquis (2) Hypertension Continue home meds (3) CHF (congestive heart failure) Continue home meds (4) Persistent atrial fibrillation Heart rate under control Anticoagulation with Eliquis (5) Diabetes mellitus Insulin sliding scale Detemir twice a day Diabetes diet Deconditioning PT/Ot VS,Fishbone, I+O VS, Fishbone, I+O Vital Signs Date Time Temp Pulse Resp B/P (MAP) Pulse Ox O2 Delivery O2 Flow Rate FiO2 12/25/20 14:00 97.8 20 69 129/54 (79) 99 Room Air 12/25/20 06:00 2.0 I&O- Last 24 Hours up to 6 AM 12/25/20 06:00 Intake Total 3720 ml Output Total 1425 ml Balance 2295 ml GEORGIA MACEDO DO Dec 25, 2020 15:50
[2020-12-25] MEDS: SPIRONOLACTONE 12.5MG PER 1/2 TABLET PO SCH (17:38)
[2020-12-25 18:00] VITALS: BP 130/56
[2020-12-25] MEDS: ATORVASTATIN 20 MG TAB PO SCH (21:00)
[2020-12-25] MEDS ORDERED: ACETAMINOPHEN TAB 650MG DOSE (2X325MG) PO PRN (21:35)
[2020-12-25 22:00] VITALS: BP 141/64
[2020-12-26 05:17] LABS: BASO # 0.1 10^3/uL (0.0-0.2); BASO % 0.6 % (0.0-1.0); EOS # 0.1 10^3/uL (0.0-0.5); EOS % 1.5 % (0.0-3.0); HEMOGLOBIN 10.8 g/dl (12.0-15.5); LYMPH # 1.7 10^3/uL (1.5-5.0); LYMPH % 20.2 % (24.0-44.0); MEAN CORPUSCULAR HEMOGLOBIN 31.3 pg (27.0-33.0); MEAN CORPUSCULAR HGB CONC 32.7 g/dl (32.0-36.5); MEAN CORPUSCULAR VOLUME 95.7 fl (80.0-96.0); MONO % 11.5 % (2.0-8.0); NEUTROPHILS # 5.6 10^3/uL (1.5-8.5); NEUTROPHILS % 65.8 % (36.0-66.0); PLATELET COUNT, AUTOMATED 160 10^3/uL (150-450); RED BLOOD COUNT 3.45 10^6/uL (4.00-5.40); WHITE BLOOD COUNT 8.6 10^3/uL (4.0-10.0)
[2020-12-26 06:00] VITALS: BP 152/73
[2020-12-26] MEDS: HumaLOG INSULIN (NovoLOG) PER UNIT SC SCH ×4 (07:30→20:11)
--- NOTE | 2020-12-26 08:46 | IPNPDOC ---
Date Seen The patient was seen on 12/26/20. Progress Note Patient seen and examined postop day 2 status post left femoral endarterectomy and left femoral to above-knee popliteal bypass with PTFE graft. She is doing well, but has some incisional pain again today. I reassured her that this will get better with time, but that it is a big surgery and does take a bit of recovery time. She did well when she got out of bed yesterday but says it does hurt a bit to move around. She says she does not care for the food, so I suggested we could try a protein shake as a meal replacement when she does not like her meal. I do not think she needs protein shakes if she is eating, but they will be good for supplementation. The patient is morbidly obese, and the incisions are both very deep, and healing will be challenging without proper protein intake. Healing is already challenging due to her morbid obesity and diabetes, so we want to give her every advantage that we can. On exam, the patient's foot has a palpable pulse at the dorsal pedis artery, biphasic signal at the posterior tibial artery, triphasic signal over the bypass, triphasic signal over the profunda. The foot is warm and well-perfused. Her robyn and sutures are intact at the groin and the knee. Both incisions look good today, no erythema, induration, drainage, bruising, or bleeding. Minimal swelling noted in the left lower extremity, but a little better today than yesterday. The patient has been good about elevating her leg. Both incisions were clean and dry and sterile dressings were applied. The patient tolerated this well. Our plan is to see how the patient does over the next 24 hours. If she feels better tomorrow, is able to ambulate, is tolerating a diet, and her pain is controlled, she may be ready to go home. She will need a shower with Hibiclens prior to discharge. We will send the bottle of Hibiclens home with her. She will need dressing teachings for dry dressings over both incisions with paper tape to secure, and when she is at rest she should have a pillowcase or a soft T-shirt in the groin folds to prevent moisture buildup. I discussed with her that it w ill be important at discharge to wear loose cotton clothing and take at least daily showers for good incision hygiene. We will continue to encourage tight glucose control on a high protein intake to improve chances of healing well. The patient has been extensively counseled about this and is agreeable. VS, I&O, 24H, Fishbone Vital Signs/I&O Vital Signs Date Time Temp Pulse Resp B/P (MAP) Pulse Ox O2 Delivery O2 Flow Rate FiO2 12/26/20 06:00 96.8 71 18 152/73 (99) 98 Room Air 12/25/20 06:00 2.0 I&O- Last 24 Hours up to 6 AM 12/26/20 06:00 Intake Total 1020 ml Balance 1020 ml Laboratory Data 24H LABS Laboratory Tests 2 12/25/20 11:26: Bedside Glucose (Misc Panel) 101 12/25/20 16:33: Bedside Glucose (Misc Panel) 119H 12/25/20 20:11: Bedside Glucose (Misc Panel) 113 12/26/20 05:00: Immature Granulocyte % (Auto) 0.4, Neutrophils (%) (Auto) 65.8, Lymphocytes (%) (Auto) 20.2L, Monocytes (%) (Auto) 11.5H, Eosinophils (%) (Auto) 1.5, Basophils (%) (Auto) 0.6, Neutrophils # (Auto) 5.6, Lymphocytes # (Auto) 1.7, Monocytes # (Auto) 1.0H, Eosinophils # (Auto) 0.1, Basophils # (Auto) 0.1, Nucleated Red Blood Cells % (auto) 0.0 12/26/20 08:08: Bedside Glucose (Misc Panel) 66L CBC/BMP Laboratory Tests 12/26/20 05:00 LIOR GALVAN MD Dec 26, 2020 08:46
[2020-12-26] MEDS: PERCOCET 5MG/325MG TAB PO PRN ×2 (08:55→18:34)
[2020-12-26] MEDS: LEVEMIR (INSULIN DETEMIR) 1 UNITS/0.01ML SC SCH ×2 (09:00→20:12)
[2020-12-26] MEDS: HEPARIN SOD (PORCINE) 5000UNITS/ML 1ML VIAL/SYRINGE SQ SCH ×2 (09:39→20:13)
[2020-12-26] MEDS: SPIRONOLACTONE 12.5MG PER 1/2 TABLET PO SCH (09:40)
[2020-12-26] MEDS: ASPIRIN 81 MG CHEW TABLET PO SCH (09:41)
[2020-12-26] MEDS: AMIODARONE 200 MG TAB (PACERONE) PO SCH ×2 (09:41→20:09)
[2020-12-26] MEDS: ENTRESTO 49-51MG TABLET (SACUBITRIL/VALSARTAN) PO SCH ×2 (09:41→20:10)
[2020-12-26] MEDS: FUROSEMIDE 40 MG TAB PO SCH (09:41)
[2020-12-26] MEDS: PANTOPRAZOLE 40MG TAB (PROTONIX) PO SCH ×2 (09:41→20:09)
[2020-12-26] MEDS: CARVedilol 12.5 MG TAB PO SCH ×2 (09:43→20:11)
--- NOTE | 2020-12-26 12:13 | IPNPDOC ---
Text Note Date of Service The patient was seen on 12/26/20. NOTE Subjective: No any acute events overnight. S/p surgery day2 Objective: GENERAL APPEARANCE: NAD HEENT: no scleral icterus, no JVD, EOMI CARDIOVASCULAR: Irregularly irregular LUNGS: CTA ABDOMEN: soft & not tender w palpitation MUSCULOSKELETAL: no cyanosis, no swelling INTEGUMENT: no generalized pallor NEUROLOGICAL: cranial nerve function from 2-12 intact intact, follows commands, speech not dysarthric Assessment/Plan Patient is 65 years old female with past history of COPD, hypertension, type 2 diabetes, atrial fibrillation, coronary artery diseases presented to hospital for elective Left femoral endarterectomy with Xenosure patch angioplasty and Left femoral to above-knee popliteal bypass with PTFE . Procedure was done today, blood loss was minimal. When I saw patient in the PACU, she was resting comfortably on the bed, denied any chest pain, palpitations, fever or chills. Vital signs pertinent for elevated blood pressure 167/90. Problems (1) Status post femoral-popliteal bypass surgery Vascular surgeon follows her Pain management Aspirin 81 mg Continue Eliquis (2) Hypertension Continue home meds (3) CHF (congestive heart failure) Continue home meds (4) Persistent atrial fibrillation Heart rate under control Anticoagulation with Eliquis (5) Diabetes mellitus Insulin sliding scale Detemir twice a day, reduced dose of detemir to 35 units twice a day due to hypoglycemia in the morning Diabetes diet Obesity BMI 35.1 Complicated care Deconditioning PT/Ot VS,Fishbone, I+O VS, Fishbone, I+O Laboratory Tests 12/26/20 05:00 Vital Signs Date Time Temp Pulse Resp B/P (MAP) Pulse Ox O2 Delivery O2 Flow Rate FiO2 12/26/20 09:44 18 12/26/20 09:43 71 130/55 12/26/20 08:55 Room Air 12/26/20 06:00 96.8 98 12/25/20 06:00 2.0 I&O- Last 24 Hours up to 6 AM 12/26/20 06:00 Intake Total 1020 ml Balance 1020 ml GEORGIA MACEDO DO Dec 26, 2020 12:13
[2020-12-26 14:00] VITALS: BP 129/57
[2020-12-26 15:26] LABS: HEMOGLOBIN A1c 5.3 %
[2020-12-26] MEDS: ATORVASTATIN 20 MG TAB PO SCH (20:11)
[2020-12-26 22:00] VITALS: BP 127/57
[2020-12-27 06:00] VITALS: BP 123/59
[2020-12-27 06:45] LABS: BASO # 0.1 10^3/uL (0.0-0.2); BASO % 0.6 % (0.0-1.0); EOS # 0.2 10^3/uL (0.0-0.5); EOS % 2.4 % (0.0-3.0); HEMATOCRIT 34.3 % (36.0-47.0); LYMPH # 1.6 10^3/uL (1.5-5.0); LYMPH % 19.5 % (24.0-44.0); MEAN CORPUSCULAR HEMOGLOBIN 31.4 pg (27.0-33.0); MEAN CORPUSCULAR HGB CONC 32.1 g/dl (32.0-36.5); MONO % 12.1 % (2.0-8.0); NEUTROPHILS # 5.2 10^3/uL (1.5-8.5); NEUTROPHILS % 64.9 % (36.0-66.0); PLATELET COUNT, AUTOMATED 178 10^3/uL (150-450)
[2020-12-27 07:06] LABS: ALBUMIN 2.9 GM/DL (3.2-5.2); BILIRUBIN,TOTAL 0.5 MG/DL (0.2-1.0); CALCIUM LEVEL 8.9 MG/DL (8.8-10.2); CREATININE FOR GFR 1.37 MG/DL (0.55-1.30); GLOMERULAR FILTRATION RATE 41.1 (>45); POTASSIUM SERUM 3.7 MEQ/L (3.5-5.1); TOTAL PROTEIN 6.7 GM/DL (6.4-8.2)
[2020-12-27] MEDS: HumaLOG INSULIN (NovoLOG) PER UNIT SC SCH ×4 (07:30→21:00)
--- NOTE | 2020-12-27 08:26 | IPNPDOC ---
Date Seen The patient was seen on 12/27/20. Progress Note Patient seen and examined postoperative day 3 status post left femoral endarterectomy, left femoral to above-knee popliteal bypass with PTFE. The patient is doing well, but still says she is having a little nausea anytime she takes pain medicine, but she says she does need pain medicine stronger than Tylenol. We will try tramadol to see if she tolerates this better. She says she is able to get up and go to the bathroom, and had to do so by herself last night because nurse was not available, and so she is pretty steady. She says she has been cleared by PT OT to go home. However, she says she is not ready to go today, but will likely be ready to go tomorrow. I think this is reasonable. The patient had a very big surgery, and she is morbidly obese so the incisions are fairly large and deep. Another day of hospital care would likely be helpful. She still has not yet showered, and I spoke with the nurses to let them know that this has been ordered several days ago and we want her to shower today. They said they will take care of it. She cannot go home until she has showered, and Hibiclens should be used for the shower. We want to make sure she is safe getting in and out of the shower before discharge. On exam, the left groin incision is clean dry and intact with robyn and sutures, no drainage, no erythema, no bleeding, no bruising, no induration. This was thoroughly cleaned, redressed with dry gauze and paper tape, and a pillowcase was placed back in the groin fold to prevent moisture buildup. The left thigh incision above the knee was cleaned thoroughly. The robyn and sutures are intact and there is no induration, erythema, drainage, bleeding, or bruising. The incision was redressed with dry gauze and paper tape. She has a palpable dorsal pedis pulse, triphasic signal over the profunda and the bypass, and a biphasic signal at the posterior tibial artery. The right lower extremity perfusion is intact. Plan: Likely the patient will be ready for discharge tomorrow. She does need a shower with Hibiclens prior to discharge. When she goes home, we would like to send 4 x 4's, paper tape, alcohol prep pads, and the bottle of Hibiclens. We will plan to remove her robyn in 2-3 weeks, and her sutures in 3-4 weeks, with a week in between. Patient discharge instructions per vascular surgery: 1. Follow-up in 1 week after discharge to check incisions and perfusion. 2. Continue tight glucose control with a diabetic diet, and continue high protein intake to help with incision healing. 3. No lifting greater than 5 pounds, no strenuous exercise for 2 weeks or until incisions are completely healed. 4. Every day, the patient should remove her dressing and take a shower. She should wash the groin area and the area around her thigh incision with Hibiclens. After the shower, she should pat the incisions dry with clean towel, gently swipe over incisions with an alcohol prep pad, and redress with 4 x 4 gauze and paper tape. When at rest, she should have a pillowcase or soft T-shirt in the groin fold to prevent moisture buildup. The patient should wear loose cotton clothing and undergarments. We appreciate the opportunity to participate in the care of this patient. VS, I&O, 24H, Fishbone Vital Signs/I&O Vital Signs Date Time Temp Pulse Resp B/P (MAP) Pulse Ox O2 Delivery O2 Flow Rate FiO2 12/27/20 06:29 18 12/27/20 06:00 98.2 77 123/59 (80) 99 Room Air 12/25/20 06:00 2.0 I&O- Last 24 Hours up to 6 AM 12/27/20 06:00 Intake Total 420 ml Output Total 275 ml Balance 145 ml Laboratory Data 24H LABS Laboratory Tests 2 12/26/20 11:39: Bedside Glucose (Misc Panel) 168H 12/26/20 16:54: Bedside Glucose (Misc Panel) 83 12/27/20 06:18: Immature Granulocyte % (Auto) 0.5, Neutrophils (%) (Auto) 64.9, Lymphocytes (%) (Auto) 19.5L, Monocytes (%) (Auto) 12.1H, Eosinophils (%) (Auto) 2.4, Basophils (%) (Auto) 0.6, Neutrophils # (Auto) 5.2, Lymphocytes # (Auto) 1.6, Monocytes # (Auto) 1.0H, Eosinophils # (Auto) 0.2, Basophils # (Auto) 0.1, Nucleated Red Blood Cells % (auto) 0.0, Anion Gap 3L, Glomerular Filtration Rate 41.1L, Calcium Level 8.9, Total Bilirubin 0.5, Aspartate Amino Transf (AST/SGOT) 11, Alanine Aminotransferase (ALT/SGPT) 16, Alkaline Phosphatase 70, Total Protein 6.7, Albumin 2.9L, Albumin/Globulin Ratio 0.8L CBC/BMP Laboratory Tests 12/27/20 06:18 LIOR GALVAN MD Dec 27, 2020 08:26
[2020-12-27] MEDS: ASPIRIN 81 MG CHEW TABLET PO SCH (08:52)
[2020-12-27] MEDS: ENTRESTO 49-51MG TABLET (SACUBITRIL/VALSARTAN) PO SCH ×2 (08:52→21:30)
[2020-12-27] MEDS: FUROSEMIDE 40 MG TAB PO SCH (08:52)
[2020-12-27] MEDS: CARVedilol 12.5 MG TAB PO SCH ×2 (08:52→21:30)
[2020-12-27] MEDS: HEPARIN SOD (PORCINE) 5000UNITS/ML 1ML VIAL/SYRINGE SQ SCH ×2 (08:53→21:29)
[2020-12-27] MEDS: AMIODARONE 200 MG TAB (PACERONE) PO SCH ×2 (08:53→21:29)
[2020-12-27] MEDS: PANTOPRAZOLE 40MG TAB (PROTONIX) PO SCH ×2 (08:53→21:31)
[2020-12-27] MEDS: SPIRONOLACTONE 12.5MG PER 1/2 TABLET PO SCH (08:55)
[2020-12-27] MEDS: LEVEMIR (INSULIN DETEMIR) 1 UNITS/0.01ML SC SCH ×2 (09:16→21:29)
--- NOTE | 2020-12-27 11:12 | IPNPDOC ---
Text Note Date of Service The patient was seen on 12/27/20. NOTE Hospitalist Progress Note Subjective: Patient was reclined in the bed when I entered the room. She is awake and alert, she is an excellent historian. She does continue to complain of pain, apparently Tylenol is insufficient but Percocet is causing her nausea and abdominal discomfort. The surgical team has switched her over to tramadol at this time, and I have ordered Zofran to be used on an as-needed basis. She took a shower this morning, and states that all went well. She has a new dressing in place at this time, I did not evaluate the surgical incision site as this was artery evaluated by the surgical team, and then the dressing was also replaced again after her shower, therefore will not remove it at this time. Remainder of review of systems is negative. Objective: General: Awake, alert, oriented 3. Not in any acute distress. HEENT: Head normocephalic, atraumatic, sclera are nonicteric. Hearing is grossly intact to conversation. Respiratory: Clear to auscultation bilaterally with no wheezes, rales, or rhonchi. Cardiovascular: Regular rate and rhythm, with no rubs, gallops, or murmur. Abdomen: Soft, nontender, nondistended, no hepatosplenomegaly appreciated. Bowel sounds present. To dressings are in place, one on the left lower abdomen, the other on the left proximal thigh, they are clean and dry at this time. Extremities: 2+ pulses in the radial and dorsalis pedis bilaterally. No evidence of clubbing or cyanosis. Assessment: Status post femoral-popliteal bypass surgery performed during this hospitalization on 12/24/2020 Hypertension Congestive heart failure Persistent atrial fibrillation Diabetes mellitus type 2 Obesity with a BMI of 35.1 Deconditioning Plan: Agree with plan to switch from Percocet to tramadol for pain control. Zofran added for nausea on an as-needed basis. The patient is still feeling quite weak and deconditioned at this time, perhaps another 24 hours of inpatient monitoring would be appropriate, and perhaps will be considered for discharge tomorrow. VS,Fishbone, I+O VS, Fishbone, I+O Laboratory Tests 12/27/20 06:18 Vital Signs Date Time Temp Pulse Resp B/P (MAP) Pulse Ox O2 Delivery O2 Flow Rate FiO2 12/27/20 08:52 72 122/58 12/27/20 06:29 18 12/27/20 06:00 98.2 99 Room Air 12/25/20 06:00 2.0 I&O- Last 24 Hours up to 6 AM 12/27/20 06:00 Intake Total 420 ml Output Total 275 ml Balance 145 ml NANCY ORTEZ 12, 2021 11:12
[2020-12-27 14:00] VITALS: BP 122/57
[2020-12-27] MEDS: ONDANSETRON 4 MG TAB PO PRN (16:23)
[2020-12-27] MEDS: traMADol 50 MG TAB PO PRN ×2 (16:39→21:31)
[2020-12-27] MEDS: ATORVASTATIN 20 MG TAB PO SCH (21:30)
[2020-12-27 22:00] VITALS: BP 128/60
[2020-12-28] MEDS: ONDANSETRON 4 MG TAB PO PRN ×2 (00:19→04:49)
[2020-12-28 06:00] VITALS: BP 111/57
[2020-12-28] MEDS: LEVEMIR (INSULIN DETEMIR) 1 UNITS/0.01ML SC SCH (08:29)
[2020-12-28] MEDS: HumaLOG INSULIN (NovoLOG) PER UNIT SC SCH (08:30)
[2020-12-28] MEDS: FUROSEMIDE 40 MG TAB PO SCH (08:32)
[2020-12-28] MEDS: HEPARIN SOD (PORCINE) 5000UNITS/ML 1ML VIAL/SYRINGE SQ SCH (08:32)
[2020-12-28] MEDS: ASPIRIN 81 MG CHEW TABLET PO SCH (08:32)
[2020-12-28] MEDS: PANTOPRAZOLE 40MG TAB (PROTONIX) PO SCH (08:32)
[2020-12-28] MEDS: AMIODARONE 200 MG TAB (PACERONE) PO SCH (08:32)
[2020-12-28] MEDS: ENTRESTO 49-51MG TABLET (SACUBITRIL/VALSARTAN) PO SCH (08:32)
[2020-12-28] MEDS: SPIRONOLACTONE 12.5MG PER 1/2 TABLET PO SCH (08:32)
[2020-12-28 08:33] VITALS: BP 122/58
[2020-12-28] MEDS: CARVedilol 12.5 MG TAB PO SCH (08:33)
[2020-12-28] MEDS ORDERED: ASPI81CH8 PO (09:34)
--- NOTE | 2020-12-28 11:30 | DS.PDOC ---
Discharge Summary General Date of Admission Dec 24, 2020 at 07:49 Date of Discharge 12/28/2020 Discharge Summary PRIMARY CARE PHYSICIAN: Henok Laboy ATTENDING AT TIME OF DISCHARGE: Dr. Harman Ortez DO Vascular surgery consult Dr. Joseph MD DISCHARGE DIAGNOS(E)S: Status post femoral-popliteal bypass surgery performed during this hospitalization on 12/24/2020 Hypertension Congestive heart failure Persistent atrial fibrillation Diabetes mellitus type 2 Obesity with a BMI of 35.1 Deconditioning HPI & HOSPITAL COURSE: The patient came to the hospital on 12/24/2020 for elective left femoral endarterectomy, left femoral to above-knee popliteal bypass with PTFE. Postoperatively she has done quite well. Pain control was achieved with tramadol since she did have some GI side effects with Percocet. No postoperative complications. Both incisions look well. PHYSICAL EXAMINATION ON DISCHARGE: GENERAL: Awake, alert, oriented 3. CARDIOVASCULAR EXAMINATION: Regular rate and rhythm, with no rubs, gallops, or murmur. RESPIRATORY EXAMINATION: Clear to auscultation bilaterally with no wheezes, rales, or rhonchi. ABDOMINAL EXAMINATION: Soft, nontender, nondistended. Bowel sounds present. EXTREMITIES: No clubbing or edema noted. 2+ pulses in the radial bilaterally. Incision in the left lower abdomen and left lower extremity are clean, dry, robyn are in place, there is no surrounding erythema or edema. Everything appears to be healing well. DISPOSITION: Home DISCHARGE INSTRUCTIONS: Patient discharge instructions per vascular surgery: 1. Follow-up in 1 week (with Dr. Joseph MD) after discharge to check incisions and perfusion. 2. Continue tight glucose control with a diabetic diet, and continue high protein intake to help with incision healing. 3. No lifting greater than 5 pounds, no strenuous exercise for 2 weeks or until incisions are completely healed. 4. Every day, the patient should remove her dressing and take a shower. She should wash the groin area and the area around her thigh incision with Hibiclens. After the shower, she should pat the incisions dry with clean towel, gently swipe over incisions with an alcohol prep pad, and redress with 4 x 4 gauze and paper tape. When at rest, she should have a pillowcase or soft T-shirt in the groin fold to prevent moisture buildup. The patient should wear loose cotton clothing and undergarments. If symptoms return, or if you experience worsening of your symptoms, please call your doctor or return to the emergency department. Vital Signs/I&Os Vital Signs Date Time Temp Pulse Resp B/P (MAP) Pulse Ox O2 Delivery O2 Flow Rate FiO2 12/28/20 08:33 71 122/58 12/28/20 06:00 98.6 20 98 Room Air 12/25/20 06:00 2.0 I&O- Last 24 Hours up to 6 AM 12/28/20 06:00 Intake Total 1305 ml Output Total 300 ml Balance 1005 ml Laboratory Data Labs 24H Laboratory Tests 2 12/27/20 16:20: Bedside Glucose (Misc Panel) 111 12/27/20 19:38: Bedside Glucose (Misc Panel) 195H 12/28/20 08:01: Bedside Glucose (Misc Panel) 167H FSBS Laboratory Tests Test 12/27/20 16:20 12/27/20 19:38 12/28/20 08:01 Range/Units Bedside Glucose (Misc Panel) 111 195 167 80-115 MG/DL Discharge Medications Scheduled Amiodarone Hcl (Pacerone) 200 Mg Tablet, 200 MG PO BID, (Reported) Apixaban (Eliquis) 5 Mg Tablet, 5 MG PO BID, (Reported) Aspirin (Children's Aspirin) 81 Mg Tab.chew, 81 MG PO DAILY Atorvastatin Calcium (Atorvastatin Calcium) 80 Mg Tablet, 80 MG PO QHS, (Reported) Carvedilol (Carvedilol) 12.5 Mg Tablet, 12.5 MG PO BID, (Reported) Dulaglutide (Trulicity) 1.5 Mg/0.5 Ml Pen.injctr, 1.5 MG SC Q7D, (Reported) Insulin Glargine,Hum.rec.anlog (Tomarilyn Solostar) 300 Unit/1 Ml Insuln.pen, 85 UNIT SC DAILY, (Reported) Pantoprazole Sodium (Protonix) 40 Mg Tab, 40 MG PO BID, (Reported) Potassium Chloride (Potassium Chloride) 20 Meq Tablet.er, BID, (Reported) Sacubitril/Valsartan (Entresto 49 mg-51 mg Tablet) 1 Each Tablet, 1 TAB PO BID, (Reported) Spironolactone (Spironolactone) 25 Mg Tablet, 12.5 MG DAILY, (Reported) Scheduled PRN Albuterol Sulfate (Ventolin Hfa) 18 Gm Hfa.aer.ad, 2 PUFFS INH QID PRN for DYSPNEA, (Reported) Famotidine (Pepcid) 40 Mg Tablet, 40 MG PO DAILY PRN for HEARTBURN, (Reported) Furosemide (Furosemide) 40 Mg Tablet, 20 MG PO DAILY PRN for FLUID RETENTION, (Reported) TAKES IF WEIGHT GAIN OF >2LBS Ondansetron (Ondansetron Odt) 4 Mg Tab.rapdis, 4 MG PO Q4HP PRN for nausea/vomiting, (Reported) Allergies Coded Allergies: latex (Unverified Allergy, Intermediate, eyes irritated, 12/10/20) dapagliflozin (Unverified Allergy, Unknown, UNKNOWN REACTION, 12/10/20) pravastatin (Unverified Allergy, Unknown, unknown, 12/10/20) diphenhydramine (Unverified Adverse Reaction, Intermediate, agitation, 12/23/20) prednisone (Unverified Adverse Reaction, Intermediate, elevated blood glucose, 12/10/20) metformin (Verified Adverse Reaction, Mild, diarrhea, 12/23/20) HARMAN ORTEZ DO Dec 28, 2020 11:30
== END 2020-12-28 12:03 | disposition home or self-care (01) | DRG 253 ==
LOC: M OR 07:49 → M MSPAV 16:32
PROVIDERS: ADMIT Surgery Vascular Surgery; ATTEND Neuromusculoskeletal Medicine & OMM
PROC: 041L0JL Bypass Left Femoral Artery to Popliteal Artery with Synthetic Substitute, Open Approach (ICD-10-PCS; 2020-12-24)
PROC: 04CL0ZZ Extirpation of Matter from Left Femoral Artery, Open Approach (ICD-10-PCS; principal; 2020-12-24 09:30)
DX: I70.202 Unspecified atherosclerosis of native arteries of extremities, left leg (principal); I48.19 Other persistent atrial fibrillation; J44.9 Chronic obstructive pulmonary disease, unspecified; I11.0 Hypertensive heart disease with heart failure; E11.51 Type 2 diabetes mellitus with diabetic peripheral angiopathy without gangrene; I50.9 Heart failure, unspecified; E66.01 Morbid (severe) obesity due to excess calories; Z68.35 Body mass index [BMI] 35.0-35.9, adult; Z79.82 Long term (current) use of aspirin; Z79.899 Other long term (current) drug therapy; Z91.040 Latex allergy status; Z88.8 Allergy status to other drugs, medicaments and biological substances; Z79.4 Long term (current) use of insulin; K21.9 Gastro-esophageal reflux disease without esophagitis; Z95.0 Presence of cardiac pacemaker; Z87.891 Personal history of nicotine dependence; Z79.01 Long term (current) use of anticoagulants

== ENCOUNTER → 2021-02-02 | Outpatient (CLI) | payer MEDICARE ==
[~2021-02-02] MED LIST changes: +ASPI81CH8 PO; -LR 1,000 ML IV ONE; -ceFAZolin SOD 2 GM in IV 1 EA IV ONE
[2021-02-02 07:25] LABS: CHOLESTEROL RISK RATIO 4.805 (<5)
[2021-02-02 08:29] LABS: HEMOGLOBIN A1c 5.5 %
[2021-02-02 10:13] LABS: TOTAL 25(OH) VITAMIN D 15.2 NG/ML (30.0-100.0)
== END ==
LOC: M LAB 06:23
PROVIDERS: ATTEND Physician Assistant
DX: I10 Essential (primary) hypertension (principal); E11.9 Type 2 diabetes mellitus without complications; E55.9 Vitamin D deficiency, unspecified; E78.5 Hyperlipidemia, unspecified

== ENCOUNTER → 2021-02-02 | Outpatient (CLI) | payer MEDICARE ==
--- NOTE | 2021-02-02 08:57 | REP ---
INDICATION: ATH ANTOINETTE ART OF EXT ROXANE LEGS PT HAS LABS BEFORE US. Patient is reported to be status post right sided angioplasty and left fem-pop bypass graft since last ultrasound. COMPARISON: Comparison study October 06, 2020.. TECHNIQUE: Bilateral lower extremity duplex arterial sonography. FINDINGS: Ankle brachial index is improved on the left to 0.94. Normal on the right 1.03. In the right lower extremity relatively normal triphasic and biphasic arterial waveforms are noted. Patent stents are noted in the proximal SFA and distal SFA and popliteal. The previously noted popliteal artery stenosis is no longer apparent. In the left lower extremity there is a patent fem-pop bypass graft with no evidence of stenosis. Velocities and waveforms are improved in the left lower extremity distally with biphasic arterial waveforms. The [place] SFA remains occluded. Left lower extremity arterial Doppler velocity chart: Left RADIO CONTROL CRANE OPERATOR PSV 80 cm/S Profundal 83 Proximal SFA occluded Mid SFA occluded Distal SFA occluded Popliteal 173 Proximal DARRYL 79 Tibial-peroneal trunk 67 Proximal SIZING MACHINE TENDER 73 Distal SIZING MACHINE TENDER 55 Distal DARRYL 56 Proximal fem-pop bypass graft velocity 123 Mid graft velocity 72 Distal graft velocity 65 Right lower extremity arterial Doppler velocity chart: Right RADIO CONTROL CRANE OPERATOR PSV 166 cm/S Profundal 105 Proximal SFA 141 Mid SFA 88 Distal SFA 44 Popliteal 51 Proximal DARRYL 44 Tibial-peroneal trunk 53 Proximal SIZING MACHINE TENDER 32 Distal SIZING MACHINE TENDER 50 Distal DARRYL 53 IMPRESSION: Improvement noted bilaterally postprocedure as above. <Electronically signed by Glenn Lopez > 02/02/21 [id number]
== END ==
LOC: M RAD 06:15
PROVIDERS: ATTEND Physician Assistant
DX: I70.213 Atherosclerosis of native arteries of extremities with intermittent claudication, bilateral legs (principal); Z95.820 Peripheral vascular angioplasty status with implants and grafts; I11.0 Hypertensive heart disease with heart failure; E11.9 Type 2 diabetes mellitus without complications; E55.9 Vitamin D deficiency, unspecified; E78.5 Hyperlipidemia, unspecified; I50.42 Chronic combined systolic (congestive) and diastolic (congestive) heart failure; I48.0 Paroxysmal atrial fibrillation; R94.31 Abnormal electrocardiogram [ECG] [EKG]

== ENCOUNTER → 2021-02-02 | Outpatient (CLI) | payer MEDICARE ==
[2021-02-02 07:05] LABS: HEMATOCRIT 38.3 % (36.0-47.0); HEMOGLOBIN 12.6 g/dl (12.0-15.5); MEAN CORPUSCULAR HEMOGLOBIN 31.3 pg (27.0-33.0); MEAN CORPUSCULAR HGB CONC 32.9 g/dl (32.0-36.5); PLATELET COUNT, AUTOMATED 191 10^3/uL (150-450); RED BLOOD COUNT 4.03 10^6/uL (4.00-5.40)
[2021-02-02 07:28] LABS: ALBUMIN 3.7 GM/DL (3.2-5.2); BILIRUBIN,TOTAL 0.4 MG/DL (0.2-1.0); CREATININE FOR GFR 1.51 MG/DL (0.55-1.30); GLOMERULAR FILTRATION RATE 36.7 (>45); POTASSIUM SERUM 4.3 MEQ/L (3.5-5.1); TOTAL PROTEIN 7.2 GM/DL (6.4-8.2)
== END ==
LOC: M LAB 06:20
PROVIDERS: ATTEND Internal Medicine Cardiovascular Disease
DX: I50.42 Chronic combined systolic (congestive) and diastolic (congestive) heart failure (principal); I48.0 Paroxysmal atrial fibrillation; R94.31 Abnormal electrocardiogram [ECG] [EKG]; I11.0 Hypertensive heart disease with heart failure

== ENCOUNTER → 2021-03-16 | Outpatient (CLI) | payer MEDICARE ==
--- NOTE | 2021-03-16 18:30 | REP ---
INDICATION: PERIUMBILICAL SWELLING, MASS OR LUMP. COMPARISON: Chest 11/07/2018. TECHNIQUE: Supine and erect views of the abdomen, frontal view chest. FINDINGS: There is no evidence of free intraperitoneal air or bowel obstruction. No significantly dilated bowel loops are seen. Metallic clips are seen in the right upper quadrant. A stent is seen in the right pelvis. A stent is also seen in each inguinal region. There are multiple metallic clips in the left inguinal region. There are mild degenerative changes of the spine and hips. No infiltrate is seen in either lung. The heart and mediastinum are unchanged. There is a left pacemaker again noted. IMPRESSION: No free air or obstruction. No acute infiltrate in either lung. <Electronically signed by Harman Saeed > 03/16/21 [id number]
== END ==
LOC: M RAD 16:09
PROVIDERS: ATTEND Physician Assistant
DX: R19.05 Periumbilic swelling, mass or lump (principal)

== ENCOUNTER → 2021-04-03 | Outpatient (CLI) | payer MEDICARE ==
--- NOTE | 2021-04-03 09:41 | REP ---
INDICATION: ABD PAIN TENDERNESS. COMPARISON: CT 09/26/2005. TECHNIQUE: Real-time sonographic evaluation of anterior abdominal wall performed at the site of the palpable tender area above the umbilicus. FINDINGS: No hernia or mass is seen in the anterior abdominal wall, in the supraumbilical or infraumbilical region. Palpable lump appears to correspond to surgically placed mesh status post abdominal wall hernia repair. IMPRESSION: No hernia or mass of the anterior abdominal wall. <Electronically signed by Harman Saeed > 04/03/21 [id number]
== END ==
LOC: M RAD 06:44
PROVIDERS: ATTEND Physician Assistant
DX: R19.05 Periumbilic swelling, mass or lump (principal); R10.819 Abdominal tenderness, unspecified site

== ENCOUNTER → 2021-05-07 | Outpatient (CLI) | payer MEDICARE ==
--- NOTE | 2021-05-07 10:48 | REP ---
INDICATION: CALCULUS OF KIDNEY. COMPARISON: Abdominal series of 03/16/2021 FINDINGS: KUB shows the intestinal gas pattern to be nonspecific. The organ silhouettes insofar as delineated are unremarkable. There is no evidence of free intraperitoneal air. Calcifications are again seen in the left upper quadrant obscured by respiratory motion artifact and likely outside the region of the left nephric silhouette which cannot be determined on this KUB. No new calcifications have developed. IMPRESSION: As above <Electronically signed by Charly Salazar > 05/07/21 [id number]
== END ==
LOC: M WUC 08:49
PROVIDERS: ATTEND Physician Assistant
DX: N20.0 Calculus of kidney (principal)

== ENCOUNTER → 2021-06-19 | Outpatient (CLI) | payer MEDICARE ==
[2021-06-19 12:06] LABS: CALCIUM LEVEL 8.9 MG/DL (8.8-10.2); CREATININE FOR GFR 1.45 MG/DL (0.55-1.30); GLOMERULAR FILTRATION RATE 38.3 (>45); POTASSIUM SERUM 3.9 MEQ/L (3.5-5.1)
== END ==
LOC: M LAB 10:59
PROVIDERS: ATTEND Ophthalmology
DX: H02.423 Myogenic ptosis of bilateral eyelids (principal)

== ENCOUNTER → 2021-07-16 | Outpatient (CLI) | payer MEDICARE | LOC: M LABSMTC 10:38 | DX: Z20.828 Contact with and (suspected) exposure to other viral communicable diseases (principal) ==

== ENCOUNTER → 2021-07-27 | Outpatient (CLI) | payer MEDICARE ==
[~2021-07-27] MED LIST changes: -LISI10TA15 PO; +LISI10TA24 PO
[2021-07-27 12:29] LABS: BASO # 0.1 10^3/uL (0.0-0.2); BASO % 0.8 % (0.0-1.0); EOS # 0.1 10^3/uL (0.0-0.5); EOS % 1.8 % (0.0-3.0); HEMATOCRIT 36.4 % (36.0-47.0); HEMOGLOBIN 11.6 g/dl (12.0-15.5); LYMPH # 1.3 10^3/uL (1.5-5.0); LYMPH % 20.4 % (24.0-44.0); MEAN CORPUSCULAR HEMOGLOBIN 30.1 pg (27.0-33.0); MEAN CORPUSCULAR HGB CONC 31.9 g/dl (32.0-36.5); MEAN CORPUSCULAR VOLUME 94.3 fl (80.0-96.0); MONO # 1.3 10^3/uL (0.0-0.8); MONO % 21.3 % (2.0-8.0); NEUTROPHILS # 3.4 10^3/uL (1.5-8.5); NEUTROPHILS % 55.2 % (36.0-66.0); PLATELET COUNT, AUTOMATED 156 10^3/uL (150-450); RED BLOOD COUNT 3.86 10^6/uL (4.00-5.40); WHITE BLOOD COUNT 6.2 10^3/uL (4.0-10.0)
[2021-07-27 13:05] LABS: ALBUMIN 3.4 GM/DL (3.2-5.2); BILIRUBIN,TOTAL 0.4 MG/DL (0.2-1.0); CALCIUM LEVEL 8.8 MG/DL (8.8-10.2); CREATININE FOR GFR 1.45 MG/DL (0.55-1.30); GLOMERULAR FILTRATION RATE 38.3 (>45); POTASSIUM SERUM 4.8 MEQ/L (3.5-5.1); THYROID STIMULATING HORMONE 1.58 uIU/ML (0.358-3.740); TOTAL PROTEIN 6.9 GM/DL (6.4-8.2)
== END ==
LOC: M LAB 11:50
PROVIDERS: ATTEND Internal Medicine Cardiovascular Disease
DX: I50.42 Chronic combined systolic (congestive) and diastolic (congestive) heart failure (principal); I48.0 Paroxysmal atrial fibrillation; I34.0 Nonrheumatic mitral (valve) insufficiency; I11.0 Hypertensive heart disease with heart failure; I49.3 Ventricular premature depolarization

== ENCOUNTER → 2021-10-07 | Outpatient (CLI) | payer MEDICARE ==
[2021-10-07 07:21] LABS: HEMOGLOBIN 11.8 g/dl (12.0-15.5); MEAN CORPUSCULAR HEMOGLOBIN 29.9 pg (27.0-33.0); MEAN CORPUSCULAR HGB CONC 32.8 g/dl (32.0-36.5); MEAN CORPUSCULAR VOLUME 91.4 fl (80.0-96.0); PLATELET COUNT, AUTOMATED 178 10^3/uL (150-450); RED BLOOD COUNT 3.94 10^6/uL (4.00-5.40)
[2021-10-07 07:43] LABS: ALBUMIN 3.3 GM/DL (3.2-5.2); BILIRUBIN,TOTAL 0.4 MG/DL (0.2-1.0); CALCIUM LEVEL 8.6 MG/DL (8.8-10.2); CREATININE FOR GFR 1.32 MG/DL (0.55-1.30); GLOMERULAR FILTRATION RATE 42.7 (>45); POTASSIUM SERUM 3.9 MEQ/L (3.5-5.1); THYROID STIMULATING HORMONE 2.5 uIU/ML (0.358-3.740); TOTAL PROTEIN 6.5 GM/DL (6.4-8.2)
== END ==
LOC: M LAB 06:41
PROVIDERS: ATTEND Internal Medicine Cardiovascular Disease
DX: I49.3 Ventricular premature depolarization (principal); I50.42 Chronic combined systolic (congestive) and diastolic (congestive) heart failure; I48.0 Paroxysmal atrial fibrillation

== ENCOUNTER → 2023-02-21 | Outpatient (CLI) | payer MEDICARE ==
[~2023-02-21] MED LIST changes: +POTA-298; -POTA1TAB14
== END ==
LOC: M EKG 09:10
PROVIDERS: ATTEND Orthopaedic Surgery
DX: Z01.818 Encounter for other preprocedural examination (principal)

== ENCOUNTER → 2023-04-21 | Outpatient (CLI) | payer MEDICARE | LOC: M WUC 08:19 | PROVIDERS: ATTEND Internal Medicine Cardiovascular Disease | DX: I50.42 Chronic combined systolic (congestive) and diastolic (congestive) heart failure (principal); I48.0 Paroxysmal atrial fibrillation; Z95.0 Presence of cardiac pacemaker ==

== ENCOUNTER → 2023-05-16 | Outpatient (CLI) | payer MEDICARE | LOC: M CARPUL 07:19 | PROVIDERS: ATTEND Internal Medicine Cardiovascular Disease | DX: I50.42 Chronic combined systolic (congestive) and diastolic (congestive) heart failure (principal); I48.0 Paroxysmal atrial fibrillation ==

== ENCOUNTER → 2023-07-26 | Outpatient (CLI) | payer MEDICARE ==
[2023-07-26 09:30] LABS: BASO # 0.1 10^3/uL (0.0-0.2); BASO % 0.9 % (0.0-1.0); EOS # 0.2 10^3/uL (0.0-0.5); EOS % 2.1 % (0.0-3.0); HEMATOCRIT 35.6 % (36.0-47.0); HEMOGLOBIN 11.3 g/dl (12.0-15.5); LYMPH # 1.8 10^3/uL (1.5-5.0); LYMPH % 20.9 % (24.0-44.0); MEAN CORPUSCULAR HGB CONC 31.7 g/dl (32.0-36.5); MEAN CORPUSCULAR VOLUME 94.4 fl (80.0-96.0); MONO # 0.7 10^3/uL (0.0-0.8); MONO % 8.4 % (2.0-8.0); NEUTROPHILS # 5.7 10^3/uL (1.5-8.5); NEUTROPHILS % 67.2 % (36.0-66.0); PLATELET COUNT, AUTOMATED 217 10^3/uL (150-450); RED BLOOD COUNT 3.77 10^6/uL (4.00-5.40); WHITE BLOOD COUNT 8.5 10^3/uL (4.0-10.0)
[2023-07-26 10:00] LABS: ALBUMIN 3.4 G/DL (3.2-5.2); BILIRUBIN,TOTAL 0.5 MG/DL (0.3-1.2); CALCIUM LEVEL 8.9 MG/DL (8.3-10.6); CREATININE FOR GFR 1.6 MG/DL (0.55-1.30); POTASSIUM SERUM 4.4 MMOL/L (3.5-5.1); TOTAL PROTEIN 6.4 G/DL (5.7-8.2)
== END ==
LOC: M WUC 08:06
PROVIDERS: ATTEND Internal Medicine Cardiovascular Disease
DX: I50.23 Acute on chronic systolic (congestive) heart failure (principal); I48.0 Paroxysmal atrial fibrillation; I11.0 Hypertensive heart disease with heart failure; R94.31 Abnormal electrocardiogram [ECG] [EKG]; G47.33 Obstructive sleep apnea (adult) (pediatric)

== ENCOUNTER → 2023-08-23 | Outpatient (REF) | payer MEDICARE ==
[2023-08-23 20:21] LABS: HEMOGLOBIN A1c 7.2 % (4.0-6.0)
[2023-08-23 20:32] LABS: ALBUMIN 3.4 G/DL (3.2-5.2); BILIRUBIN,DIRECT 0.1 MG/DL (<0.4); BILIRUBIN,TOTAL 0.4 MG/DL (0.3-1.2); TOTAL PROTEIN 6.5 G/DL (5.7-8.2)
== END ==
LOC: M LAB REF 19:49
PROVIDERS: ATTEND Physician Assistant
DX: E11.9 Type 2 diabetes mellitus without complications (principal); I50.23 Acute on chronic systolic (congestive) heart failure

== ENCOUNTER → 2023-12-15 | Outpatient (REF) | payer MEDICARE ==
[~2023-12-15] MED LIST changes: +ONDA-282 PO; -ONDA4TAB6 PO
[2023-12-16 10:04] LABS: SOURCE, BODY FLUID GLUCOSE LFT KNEE
[2023-12-16 11:47] LABS: SOURCE, BODY FLUID LFT KNEE; SYNOVIAL FLUID COLOR PALE YELLOW (COLORLESS)
[2023-12-16 12:55] LABS: CRYSTALS, BODY FLUID NONE SEEN (NONE SEEN); SOURCE, BODY FLUID CRYSTALS LFT KNEE
== END ==
LOC: M LAB REF 09:22
PROVIDERS: ATTEND Physician Assistant
DX: M25.462 Effusion, left knee (principal)

== ENCOUNTER → 2023-12-26 | Outpatient (CLI) | payer MEDICARE ==
[2023-12-26 10:54] LABS: HEMATOCRIT 31.1 % (36.0-47.0); HEMOGLOBIN 9.8 g/dl (12.0-15.5); MEAN CORPUSCULAR HEMOGLOBIN 28.4 pg (27.0-33.0); MEAN CORPUSCULAR HGB CONC 31.5 g/dl (32.0-36.5); MEAN CORPUSCULAR VOLUME 90.1 fl (80.0-96.0); PLATELET COUNT, AUTOMATED 217 10^3/uL (150-450); RED BLOOD COUNT 3.45 10^6/uL (4.00-5.40); WHITE BLOOD COUNT 7.7 10^3/uL (4.0-10.0)
[2023-12-26 11:23] LABS: ALBUMIN 3.1 G/DL (3.2-5.2); ALKALINE PHOSPHATASE 68 U/L (46-116); ALT/SGPT 12 U/L (7.0-40); AST/SGOT < 8 U/L (<34); BILIRUBIN,TOTAL 0.3 MG/DL (0.3-1.2); BLOOD UREA NITROGEN 17 MG/DL (9-23); CALCIUM LEVEL 8.8 MG/DL (8.3-10.6); CARBON DIOXIDE LEVEL 30 MMOL/L (20-31); CHLORIDE LEVEL 109 MMOL/L (98-107); CREATININE FOR GFR 1.44 MG/DL (0.55-1.30); GLOMERULAR FILTRATION RATE 38.4 (>45); GLUCOSE, FASTING 78 MG/DL (74-106); SODIUM LEVEL 145 MMOL/L (136-145); TOTAL PROTEIN 6.1 G/DL (5.7-8.2)
[2023-12-26 11:26] LABS: THYROID STIMULATING HORMONE 5.355 uIU/ML (0.55-4.78)
== END ==
LOC: M WUC 08:05
PROVIDERS: ATTEND Internal Medicine Cardiovascular Disease
DX: I11.0 Hypertensive heart disease with heart failure (principal); I50.23 Acute on chronic systolic (congestive) heart failure; I48.0 Paroxysmal atrial fibrillation; G47.33 Obstructive sleep apnea (adult) (pediatric)

== ENCOUNTER → 2023-12-30 | Outpatient (CLI) | payer MEDICARE ==
[2023-12-30 12:15] LABS: BASO # 0.1 10^3/uL (0.0-0.2); BASO % 0.9 % (0.0-1.0); EOS # 0.3 10^3/uL (0.0-0.5); EOS % 2.6 % (0.0-3.0); HEMOGLOBIN 10.3 g/dl (12.0-15.5); LYMPH # 1.7 10^3/uL (1.5-5.0); LYMPH % 17.9 % (24.0-44.0); MEAN CORPUSCULAR HEMOGLOBIN 28.1 pg (27.0-33.0); MEAN CORPUSCULAR HGB CONC 30.3 g/dl (32.0-36.5); MEAN CORPUSCULAR VOLUME 92.9 fl (80.0-96.0); MONO # 0.7 10^3/uL (0.0-0.8); MONO % 7.5 % (2.0-8.0); NEUTROPHILS # 6.9 10^3/uL (1.5-8.5); NEUTROPHILS % 70.8 % (36.0-66.0); PLATELET COUNT, AUTOMATED 257 10^3/uL (150-450); RED BLOOD COUNT 3.66 10^6/uL (4.00-5.40); WHITE BLOOD COUNT 9.7 10^3/uL (4.0-10.0)
[2023-12-30 12:27] LABS: ERYTHROCYTE SEDIMENTATION RATE 50 mm/hr (0-30)
== END ==
LOC: M WUC 08:02
PROVIDERS: ATTEND Orthopaedic Surgery
DX: M17.12 Unilateral primary osteoarthritis, left knee (principal); M25.462 Effusion, left knee; M65.862 Other synovitis and tenosynovitis, left lower leg

== ENCOUNTER → 2024-01-11 | Outpatient (CLI) | payer MEDICARE ==
[2024-01-11 10:11] LABS: BASO # 0.1 10^3/uL (0.0-0.2); BASO % 0.6 % (0.0-1.0); EOS # 0.2 10^3/uL (0.0-0.5); EOS % 1.9 % (0.0-3.0); HEMATOCRIT 31.8 % (36.0-47.0); HEMOGLOBIN 9.8 g/dl (12.0-15.5); LYMPH # 1.5 10^3/uL (1.5-5.0); LYMPH % 19.1 % (24.0-44.0); MEAN CORPUSCULAR HEMOGLOBIN 28.3 pg (27.0-33.0); MEAN CORPUSCULAR HGB CONC 30.8 g/dl (32.0-36.5); MEAN CORPUSCULAR VOLUME 91.9 fl (80.0-96.0); MONO # 0.7 10^3/uL (0.0-0.8); MONO % 8.6 % (2.0-8.0); NEUTROPHILS # 5.4 10^3/uL (1.5-8.5); NEUTROPHILS % 69.5 % (36.0-66.0); PLATELET COUNT, AUTOMATED 184 10^3/uL (150-450); RED BLOOD COUNT 3.46 10^6/uL (4.00-5.40); WHITE BLOOD COUNT 7.7 10^3/uL (4.0-10.0)
[2024-01-11 10:18] LABS: ERYTHROCYTE SEDIMENTATION RATE 37 mm/hr (0-30)
[2024-01-12 10:57] LABS: ANA SCREEN, IFA NEGATIVE (NEGATIVE)
== END ==
LOC: M WUC 08:01
PROVIDERS: ATTEND Physician Assistant
DX: M17.12 Unilateral primary osteoarthritis, left knee (principal); M25.462 Effusion, left knee; M65.862 Other synovitis and tenosynovitis, left lower leg

== ENCOUNTER → 2024-01-23 | Outpatient (CLI) | payer MEDICARE ==
[2024-01-23 11:18] LABS: BASO # 0.1 10^3/uL (0.0-0.2); BASO % 0.7 % (0.0-1.0); EOS # 0.2 10^3/uL (0.0-0.5); EOS % 2.5 % (0.0-3.0); HEMATOCRIT 33.3 % (36.0-47.0); HEMOGLOBIN 10.2 g/dl (12.0-15.5); LYMPH # 1.5 10^3/uL (1.5-5.0); MEAN CORPUSCULAR HEMOGLOBIN 28.3 pg (27.0-33.0); MEAN CORPUSCULAR HGB CONC 30.6 g/dl (32.0-36.5); MEAN CORPUSCULAR VOLUME 92.2 fl (80.0-96.0); MONO # 0.6 10^3/uL (0.0-0.8); MONO % 7.3 % (2.0-8.0); NEUTROPHILS % 70.9 % (36.0-66.0); PLATELET COUNT, AUTOMATED 195 10^3/uL (150-450); RED BLOOD COUNT 3.61 10^6/uL (4.00-5.40); WHITE BLOOD COUNT 8.4 10^3/uL (4.0-10.0)
[2024-01-23 11:43] LABS: ALBUMIN 3.5 G/DL (3.2-5.2); CALCIUM LEVEL 8.7 MG/DL (8.3-10.6); CREATININE FOR GFR 1.72 MG/DL (0.55-1.30); GLOMERULAR FILTRATION RATE 31.3 (>45); PHOSPHORUS LEVEL 3.9 MG/DL (2.4-5.1); POTASSIUM SERUM 4.4 MMOL/L (3.5-5.1)
[2024-01-23 11:44] LABS: THYROID STIMULATING HORMONE 4.878 uIU/ML (0.55-4.78)
== END ==
LOC: M WUC 08:06
PROVIDERS: ATTEND Internal Medicine Cardiovascular Disease
DX: D64.9 Anemia, unspecified (principal); I50.23 Acute on chronic systolic (congestive) heart failure; E03.9 Hypothyroidism, unspecified; I48.0 Paroxysmal atrial fibrillation; I11.0 Hypertensive heart disease with heart failure

== ENCOUNTER 2024-04-02 06:24 | Day surgery (SDC) | payer MEDICARE ==
[~2024-04-02] VITALS: Ht 165.1 cm; Wt 107.0 kg
[~2024-04-02 06:24] MED LIST changes: +CLOP75TA2 PO; +TIRZ2.5P SQ; +TORS10TA3 PO
[2024-04-02] MEDS ORDERED: LR 1,000 ML IV SCH (07:00)
[2024-04-02] MEDS: PHENYLEPHRINE 2.5% OPHTH SOL 2ML OS SCH (07:02)
[2024-04-02] MEDS: FLURBIPROFEN 0.03% OPHTH SOLN 2.5 ML OS SCH (07:02)
[2024-04-02] MEDS: ATROPINE SULFATE 1% OPHTH SOLN 2ML BTL OS SCH (07:02)
[2024-04-02] MEDS: TETRACAINE 0.5% OPHTH SOLN 4ML OS SCH (07:03)
[2024-04-02] MEDS ORDERED: MIDAZOLAM INJ 2MG/2ML VIAL As Ordered ONE (08:07)
[2024-04-02] MEDS: LIDOCAINE 1% SDV 5ML VIAL As Ordered ONE (08:13)
[2024-04-02] MEDS: MOXIFLOXACIN 0.6MG/0.4ML INTRAOCULAR SYRINGE As Ordered ONE (08:22)
[2024-04-02 08:35] VITALS: BP 176/84; TEMP 96.9; O2SAT 99
== END 2024-04-02 08:51 | disposition home or self-care (01) ==
LOC: M SDC 06:24
PROVIDERS: ATTEND Ophthalmology
DX: H25.12 Age-related nuclear cataract, left eye (principal); I10 Essential (primary) hypertension; I48.91 Unspecified atrial fibrillation; E11.9 Type 2 diabetes mellitus without complications; K21.9 Gastro-esophageal reflux disease without esophagitis; E78.5 Hyperlipidemia, unspecified; K57.92 Diverticulitis of intestine, part unspecified, without perforation or abscess without bleeding; G47.33 Obstructive sleep apnea (adult) (pediatric); J44.9 Chronic obstructive pulmonary disease, unspecified; Z88.8 Allergy status to other drugs, medicaments and biological substances; Z88.0 Allergy status to penicillin; Z91.040 Latex allergy status; Z79.02 Long term (current) use of antithrombotics/antiplatelets; Z79.51 Long term (current) use of inhaled steroids; Z79.899 Other long term (current) drug therapy
CPT/HCPCS: 66984; J2250; V2632

== ENCOUNTER 2024-04-09 06:00 | Day surgery (SDC) | payer MEDICARE ==
[~2024-04-09] VITALS: Ht 165.1 cm; Wt 106.1 kg
[2024-04-09] MEDS: TETRACAINE 0.5% OPHTH SOLN 4ML OD SCH (06:43)
[2024-04-09] MEDS: PHENYLEPHRINE 2.5% OPHTH SOL 2ML OD SCH (06:43)
[2024-04-09] MEDS: FLURBIPROFEN 0.03% OPHTH SOLN 2.5 ML OD SCH (06:43)
[2024-04-09] MEDS: ATROPINE SULFATE 1% OPHTH SOLN 2ML BTL OD SCH (06:43)
[2024-04-09] MEDS ORDERED: LR 1,000 ML IV SCH (07:00)
[2024-04-09] MEDS ORDERED: MIDAZOLAM INJ 2MG/2ML VIAL As Ordered ONE (07:05)
[2024-04-09] MEDS ORDERED: fentaNYL 100 MCG/2 ML INJECTION As Ordered ONE (07:06)
[2024-04-09] MEDS: DEXTROSE 50% 50ML SYRINGE IV STA (07:20)
[2024-04-09] MEDS: LIDOCAINE 1% SDV 5ML VIAL As Ordered ONE (07:47)
[2024-04-09] MEDS: MOXIFLOXACIN 0.6MG/0.4ML INTRAOCULAR SYRINGE As Ordered ONE (07:48)
[2024-04-09 08:07] VITALS: BP 158/82; TEMP 96.8; O2SAT 96
== END 2024-04-09 08:23 | disposition home or self-care (01) ==
LOC: M SDC 06:00
PROVIDERS: ATTEND Ophthalmology
DX: H25.11 Age-related nuclear cataract, right eye (principal); Z91.040 Latex allergy status; Z88.8 Allergy status to other drugs, medicaments and biological substances; Z88.0 Allergy status to penicillin
CPT/HCPCS: 66984; J2250; J3010; V2632

== ENCOUNTER → 2024-04-20 | Outpatient (CLI) | payer MEDICARE ==
[2024-04-20 10:29] LABS: CHOLESTEROL RISK RATIO 3.71 (<5); HDL CHOLESTEROL 41.2 MG/DL (>40); LDL CHOLESTEROL 86.4 MG/DL (<100); NON-HDL-C 111.8 MG/DL
[2024-04-20 10:59] LABS: HEMOGLOBIN A1c 5.3 % (4.0-6.0)
== END ==
LOC: M WUC 08:15
PROVIDERS: ATTEND Physician Assistant
DX: E11.9 Type 2 diabetes mellitus without complications (principal); E78.5 Hyperlipidemia, unspecified

== ENCOUNTER → 2024-08-06 | Outpatient (CLI) | payer MEDICARE ==
[2024-08-07 07:19] LABS: HEMOGLOBIN A1c 6.1 % (4.0-6.0)
== END ==
LOC: M WUC 08:42
PROVIDERS: ATTEND Physician Assistant
DX: E11.9 Type 2 diabetes mellitus without complications (principal)

== ENCOUNTER → 2024-08-06 | Outpatient (CLI) | payer MEDICARE ==
[2024-08-06 11:50] LABS: HEMATOCRIT 35.7 % (36.0-47.0); MEAN CORPUSCULAR HEMOGLOBIN 29.4 pg (27.0-33.0); MEAN CORPUSCULAR HGB CONC 30.8 g/dl (32.0-36.5); MEAN CORPUSCULAR VOLUME 95.5 fl (80.0-96.0); PLATELET COUNT, AUTOMATED 194 10^3/uL (150-450); RED BLOOD COUNT 3.74 10^6/uL (4.00-5.40); WHITE BLOOD COUNT 9.1 10^3/uL (4.0-10.0)
[2024-08-06 12:12] LABS: ALBUMIN 3.5 G/DL (3.2-5.2); BILIRUBIN,TOTAL 0.4 MG/DL (0.3-1.2); CALCIUM LEVEL 8.9 MG/DL (8.3-10.6); CREATININE FOR GFR 1.58 MG/DL (0.55-1.30); GLOMERULAR FILTRATION RATE 34.4 (>39); MAGNESIUM LEVEL 2.1 MG/DL (1.8-2.4); POTASSIUM SERUM 5.1 MMOL/L (3.5-5.1); TOTAL PROTEIN 6.7 G/DL (5.7-8.2)
[2024-08-06 12:13] LABS: THYROID STIMULATING HORMONE 4.168 uIU/ML (0.55-4.78)
[2024-08-06 12:14] LABS: FREE T4 1.08 NG/DL (0.89-1.76)
== END ==
LOC: M WUC 08:44
PROVIDERS: ATTEND Physician Assistant
DX: I48.0 Paroxysmal atrial fibrillation (principal); I50.23 Acute on chronic systolic (congestive) heart failure; R94.31 Abnormal electrocardiogram [ECG] [EKG]; I11.0 Hypertensive heart disease with heart failure; E11.9 Type 2 diabetes mellitus without complications

== ENCOUNTER → 2025-02-22 | Outpatient (REF) | payer MEDICARE ==
[2025-02-25 19:12] LABS: IRON (FE) 34.0 UG/DL (50-170); PERCENT SATURATION 10.4 % (13.2-45.0)
== END ==
LOC: M LAB REF 18:11
PROVIDERS: ATTEND Internal Medicine Nephrology
DX: D50.9 Iron deficiency anemia, unspecified (principal)

== ENCOUNTER → 2025-03-15 | Outpatient (CLI) | payer MEDICARE ==
[~2025-03-15] MED LIST changes: +ISOVUE-370 76% 100 ML VIAL As Ordered ONE
== END ==
LOC: M RAD 10:50
PROVIDERS: ATTEND Surgery Vascular Surgery
DX: I73.9 Peripheral vascular disease, unspecified (principal)
CPT/HCPCS: 75635; Q9967

== ENCOUNTER → 2025-03-20 | Outpatient (CLI) | payer MEDICARE ==
[~2025-03-20] MED LIST changes: -ISOVUE-370 76% 100 ML VIAL As Ordered ONE
[2025-03-20 16:01] LABS: CALCIUM LEVEL 9.0 MG/DL (8.3-10.6); CARBON DIOXIDE LEVEL 31.0 MMOL/L (20-31); CHLORIDE LEVEL 108.0 MMOL/L (98-107); CREATININE FOR GFR 1.92 MG/DL (0.55-1.30); GLOMERULAR FILTRATION RATE 27.7 (>39); POTASSIUM SERUM 4.2 MMOL/L (3.5-5.1); SODIUM LEVEL 148.0 MMOL/L (136-145)
== END ==
LOC: M WUC 08:13
PROVIDERS: ATTEND Physician Assistant
DX: N28.9 Disorder of kidney and ureter, unspecified (principal)

== ENCOUNTER → 2025-03-25 | Outpatient (CLI) | payer MEDICARE | LOC: M RAD 07:49 | PROVIDERS: ATTEND Internal Medicine Nephrology | DX: I70.1 Atherosclerosis of renal artery (principal) | CPT/HCPCS: 78707; A9562 ==

== ENCOUNTER 2025-07-04 09:59 | Outpatient (CLI) | payer MEDICARE ==
[~2025-07-04] VITALS: Ht 165.1 cm; Wt 104.5 kg
[~2025-07-04 09:59] MED LIST changes: +ALBUTEROL SULFATE 2.5 MG/0.5 ML INH CONCENTRATE NEB SOLN INH PRN; +EPINEPHrine INJ 1 MG/ML 1ML AMP IM PRN; +NS (Normal Saline) 0.9% 1,000 ML IV SCH; +diphenhydrAMINE 50 MG/ML VIAL IV PRN
[2025-07-04 10:35] VITALS: BP 126/63; O2SAT 95
[2025-07-04] MEDS: IRON SUCROSE 500 MG in NS 250 ML IV ONE (11:09)
[2025-07-04 12:05] VITALS: BP 129/62; O2SAT 96
[2025-07-04 13:19] VITALS: BP 123/57; O2SAT 95
[2025-07-04 14:00] VITALS: BP 130/81; O2SAT 94
[2025-07-04 15:32] VITALS: BP 139/77; O2SAT 95
== END 2025-07-04 16:00 | disposition home or self-care (01) ==
LOC: M INFU 09:59
PROVIDERS: ATTEND Internal Medicine Nephrology
DX: N18.9 Chronic kidney disease, unspecified (principal); D63.1 Anemia in chronic kidney disease; Z88.1 Allergy status to other antibiotic agents; Z88.8 Allergy status to other drugs, medicaments and biological substances; Z91.040 Latex allergy status
CPT/HCPCS: 96365; 96366; J1756